=== PATIENT | male | born 1945 | race Caucasian/White ===

== ENCOUNTER → 2017-12-07 11:29 | Outpatient (CLI) | payer MEDICARE, SELFPAY | PROVIDERS: Visit Provider Nurse Practitioner Family | DX: R68.89 Other general symptoms and signs (principal) | CPT/HCPCS: 87275; 87276 ==

== ENCOUNTER → 2020-01-07 06:57 | Outpatient (CLI) | payer MEDICARE, SELFPAY ==
--- NOTE | 2020-01-07 07:08 | XR_ITS ---
PROCEDURE: XR HAND RT MIN 3V CLINICAL INDICATION: THUMB PAIN, JOINT PAIN COMPARISON: No exams were available for comparison FINDINGS: No fracture or dislocation. No lytic or blastic change. There is normal mineralization. There are minimal osteoarthritic changes involving the DIP of the 2nd and 3rd digit and the interphalangeal joint of the thumb as well as the 1st metacarpal phalangeal joint. Incidental vascular calcifications are present. There are mild osteoarthritic changes of the distal radial ulnar joint and there is some bony hypertrophy of the distal aspect of the 2nd 3rd metacarpals. Other findings:None. IMPRESSION: Mild osteoarthritic changes Dictated by: Samir Joshi MD 01/07/2020 08:21 Electronically signed by Samir Joshi MD in [facility] 01/07/2020 08:21
--- NOTE | 2020-01-07 07:08 | XR_ITS ---
PROCEDURE: XR HAND LT MIN 3V CLINICAL INDICATION: THUMB PAIN, JOINT PAIN COMPARISON: No exams were available for comparison FINDINGS: No fracture or dislocation. No lytic or blastic change. There is normal mineralization. Mild osteoarthritic changes are present involving the 1st metacarpal-carpal joint and 1st metacarpophalangeal joint. Mild bony hypertrophy of the distal aspect of the 2nd and 3rd metacarpals. Other findings:None. IMPRESSION: Mild osteoarthritic change Dictated by: Samir Joshi MD 01/07/2020 08:28 Electronically signed by Samir Joshi MD in [facility] 01/07/2020 08:28
[2020-01-07 08:07] LABS: Basophils # 0.1 K/mm3 (0-0.2); Basophils % 0.6 % (0.1-2.0); Eosinophils # 0.2 K/mm3 (0.0-0.4); Eosinophils % 2.1 % (0.1-12.0); Hematocrit 44.1 % (42.0-52.0); Hemoglobin 14.6 g/dL (14.1-18.0); Lymphocytes # 1.5 K/mm3 (0.7-4.5); Lymphocytes % 14.1 % (10-50); Mean Corpuscular HGB Conc 33.1 g/dL (31.8-35.4); Mean Corpuscular Hemoglobin 31.6 pg (27.0-31.2); Mean Corpuscular Volume 95.4 fl (80-94); Mean Platelet Volume 8.7 fl (7.4-10.4); Monocytes # 0.5 K/mm3 (0.1-1.0); Monocytes % 4.5 % (1.7-9.3); Neutrophils # 8.1 K/mm3 (1.8-7.8); Neutrophils % 78.7 % (37.0-80.0); Platelet Count 240 K/mm3 (142-424); Red Blood Count 4.62 M/mm3 (4.60-6.20); Red Cell Distribution Width 14.6 % (11.5-17.5); White Blood Count 10.3 K/mm3 (4.8-10.8)
[2020-01-07 09:43] LABS: Chloride 105 mmol/L (98-107); Sodium 139 mmol/L (136-145)
[2020-01-07 09:46] LABS: Alanine Aminotransferase 11 U/L (12-78); Albumin Level 3.8 g/dl (3.5-5.0); Albumin/Globulin Ratio 1.4 (1.1-1.8); Alkaline Phosphatase 87 U/L (38-126); Aspartate Amino Transferase 20 U/L (17-59); Bilirubin,Total 0.7 mg/dl (0.2-1.3); Blood Urea Nitrogen 22 mg/dl (9-20); Calcium 9.7 mg/dl (8.4-10.2); Carbon Dioxide 29 mmol/L (22.0-30.0); Estimated Glomerular Filt Rate 95 ml/min (>60); GFR (African American) 115 ML/MIN (>60); Globulin 2.8 g/dL (1.3-3.2); Glucose 109 mg/dl (74-100); Total Protein,Serum 6.6 g/dl (6.3-8.2)
== END ==
PROVIDERS: PCP Internal Medicine Adolescent Medicine; Visit Provider Internal Medicine Adolescent Medicine
DX: M79.644 Pain in right finger(s) (principal); M25.542 Pain in joints of left hand; M25.541 Pain in joints of right hand
CPT/HCPCS: 36415; 73130; 80053; 85025

== ENCOUNTER → 2020-05-19 10:48 | Outpatient (CLI) | payer MEDICARE, SELFPAY ==
--- NOTE | 2020-05-19 10:53 | CT_ITS ---
PROCEDURE: CT ABDOMEN PELVIS WO CON CLINICAL INDICATION: LLQ ABD PAIN Left-sided abdominal pain, left lower quadrant pain and constipation COMPARISON: No exams were available for comparison TECHNIQUE: Axial images obtained with sagittal and coronal reformats. All CT scans at the facility use one or more dose reduction, viz: automated exposure control, ma/kV adjustment per patient size (including targeted exams where dose is matched to indication, i.e. head), or iterative reconstruction technique. FINDINGS: LOWER THORAX: There is a noncalcified 5 mm nodule within the inferior aspect of the right upper lobe. Atelectatic or fibrotic changes are present in the right middle lobe. There are coronary artery calcifications. ABDOMEN & PELVIS: The liver, spleen, adrenal glands, and pancreas have an unremarkable appearance. There are multiple gallstones present. There are nonobstructing bilateral renal calculi measuring to 4 mm in the mid polar region on the right and 3 mm in the mid polar region on the left. No hydronephrosis. No evidence of appendicitis, intestinal obstruction, free air, or diverticulitis. Prostate is enlarged at 4.8 cm. There is an infrarenal abdominal aortic aneurysm which measures up to 3.8 cm transverse and 3.5 cm AP. There is no evidence of retroperitoneal hemorrhage. The aneurysm begins approximately 4 cm below the level of the renal arteries. The aneurysm extends to just above the aortic bifurcation. The proximal common iliacs measure up to 1.2 cm on both sides. No acute bony findings. IMPRESSION: 1. Cholelithiasis 2. 3.8 x 3.5 cm infrarenal abdominal aortic aneurysm 3. Nonobstructing bilateral nephrolithiasis 4. Other nonacute findings as detailed above Dictated b Samir Joshi MD 05/20/2020 10:22 Samir Joshi MD in [facility] 05/20/2020 10:22
[2020-05-19 11:40] LABS: Basophils % 0.6 % (0.1-2.0); Eosinophils % 0.6 % (0.1-12.0); Hematocrit 43.2 % (42.0-52.0); Hemoglobin 14.7 g/dL (14.1-18.0); Lymphocytes # 1.3 K/mm3 (0.7-4.5); Lymphocytes % 20.4 % (10-50); Mean Corpuscular Hemoglobin 31.2 pg (27.0-31.2); Mean Corpuscular Volume 91.9 fl (80-94); Mean Platelet Volume 9.4 fl (7.4-10.4); Monocytes # 0.4 K/mm3 (0.1-1.0); Monocytes % 5.8 % (1.7-9.3); Neutrophils # 4.5 K/mm3 (1.8-7.8); Neutrophils % 72.7 % (37.0-80.0); Platelet Count 180 K/mm3 (142-424); Red Cell Distribution Width 14.7 % (11.5-17.5); White Blood Count 6.2 K/mm3 (4.8-10.8)
[2020-05-19 12:02] LABS: Chloride 103 mmol/L (98-107); Potassium 4.2 mmoL/L (3.5-5.1); Sodium 139 mmol/L (136-145)
[2020-05-19 12:05] LABS: Alanine Aminotransferase 14 U/L (12-78); Alkaline Phosphatase 90 U/L (38-126); Anion Gap 11.2 mEq/L (5-15); Aspartate Amino Transferase 26 U/L (17-59); Bilirubin,Total 1.2 mg/dl (0.2-1.3); Blood Urea Nitrogen 16 mg/dl (9-20); Calcium 9.4 mg/dl (8.4-10.2); Carbon Dioxide 29 mmol/L (22.0-30.0); Estimated Glomerular Filt Rate 83 ml/min (>60); GFR (African American) 100 ML/MIN (>60); Glucose 92 mg/dl (74-100)
[2020-05-19 12:06] LABS: Albumin Level 3.6 g/dl (3.5-5.0); Albumin/Globulin Ratio 1.4 (1.1-1.8); Globulin 2.6 g/dL (1.3-3.2); Total Protein,Serum 6.2 g/dl (6.3-8.2)
== END ==
PROVIDERS: PCP Internal Medicine Adolescent Medicine; Visit Provider Internal Medicine Adolescent Medicine
DX: R10.32 Left lower quadrant pain (principal)
CPT/HCPCS: 36415; 74176; 80053; 85025

== ENCOUNTER → 2020-05-28 15:21 | Outpatient (CLI) | payer MEDICARE, SELFPAY ==
[2020-05-28 16:06] LABS: Basophils # 0.1 K/mm3 (0-0.2); Basophils % 0.8 % (0.1-2.0); Eosinophils # 0.1 K/mm3 (0.0-0.4); Eosinophils % 1.2 % (0.1-12.0); Hematocrit 45.8 % (42.0-52.0); Hemoglobin 15.2 g/dL (14.1-18.0); Lymphocytes % 23.7 % (10-50); Mean Corpuscular HGB Conc 33.2 g/dL (31.8-35.4); Mean Corpuscular Hemoglobin 30.9 pg (27.0-31.2); Mean Corpuscular Volume 93.2 fl (80-94); Mean Platelet Volume 9.7 fl (7.4-10.4); Monocytes # 0.4 K/mm3 (0.1-1.0); Monocytes % 4.5 % (1.7-9.3); Neutrophils % 69.8 % (37.0-80.0); Platelet Count 204 K/mm3 (142-424); Red Blood Count 4.91 M/mm3 (4.60-6.20); Red Cell Distribution Width 14.7 % (11.5-17.5); White Blood Count 8.6 K/mm3 (4.8-10.8)
[2020-05-28 16:29] LABS: Chloride 106 mmol/L (98-107); Potassium 4.2 mmoL/L (3.5-5.1); Sodium 140 mmol/L (136-145)
[2020-05-28 16:31] LABS: Alanine Aminotransferase 11 U/L (12-78); Aspartate Amino Transferase 21 U/L (17-59); Blood Urea Nitrogen 19 mg/dl (9-20); Estimated Glomerular Filt Rate 73 ml/min (>60); GFR (African American) 89 ML/MIN (>60)
[2020-05-28 16:32] LABS: Albumin Level 3.5 g/dl (3.5-5.0); Albumin/Globulin Ratio 1.3 (1.1-1.8); Alkaline Phosphatase 89 U/L (38-126); Anion Gap 10.2 mEq/L (5-15); Bilirubin,Total 0.8 mg/dl (0.2-1.3); Calcium 9.2 mg/dl (8.4-10.2); Carbon Dioxide 28 mmol/L (22.0-30.0); Creatine Kinase 90 U/L (55-170); D-Dimer 357 ng/mL (0-400); Globulin 2.7 g/dL (1.3-3.2); Glucose 79 mg/dl (74-100); Total Protein,Serum 6.2 g/dl (6.3-8.2)
[2020-05-28 16:41] LABS: CKMB Relative Index 4.6 U/L (0-4.0); Creatine Kinase MB 4.1 ng/ml (0.0-2.03)
[2020-05-28 16:54] LABS: Troponin I < 0.01 ng/ml (0.00-0.034)
--- NOTE | 2020-05-28 16:58 | NM_ITS ---
PROCEDURE: NM PUL VENT AND PERFUSE CLINICAL INDICATION: HX OF PULMONARY EMBOLISM, OTHER CHEST PAIN Shortness of air, shortness of breath, chest pain, history of pulmonary embolus COMPARISON: CR XR CHEST 2V from 05/28/2020 TECHNIQUE: Dose 35.6 mCi technetium DTPA inhaled 8.14 mCi technetium MAA IV FINDINGS: Ventilation images show clumping of the radiopharmaceutical centrally with patchy distribution of radiopharmaceutical. These findings are consistent with COPD. Perfusion images also show segmental distribution. A matching segmental defect is present in the superior segment of the right lower lobe. No mismatching defects are evident. IMPRESSION: No mismatching defects are evident that would indicate a pulmonary embolus. Overall, the findings are low probability for pulmonary embolus. COPD Dictated by: Samir Joshi MD 05/28/2020 21:08 Samir Joshi MD in [facility] 05/28/2020 21:08
--- NOTE | 2020-05-28 20:35 | XR_ITS ---
PROCEDURE: XR CHEST 2V CLINICAL HISTORY: SOB, H/O PE COMPARISON: CR CXR2V XR chest 2V from 04/13/2018 FINDINGS: The cardiomediastinal silhouette and pulmonary vascularity are within normal limits. Surgical clips are present in the left upper lobe. There is hyperinflation with attenuation of the peripheral pulmonary vessels consistent with COPD. There is a mild pectus deformity. Vague increased density is present in the right upper lobe overlying the 4th rib anteriorly. This is nonspecific and could be related to summation artifact. A patchy area of infiltrate or developing nodule is an additional consideration. Healing rib fracture is also a consideration. There are degenerative changes in the thoracic spine. No acute bony abnormalities. IMPRESSION: COPD. Vague increased density is present in the right upper lobe overlying the 4th rib anteriorly. This is nonspecific and could be related to summation artifact. A patchy area of infiltrate or developing nodule is an additional consideration. Healing rib fracture is also a consideration. Suggest follow-up to confirm stability or resolution. Dictated by: Samir Joshi MD 05/28/2020 21:36 Samir Joshi MD in [facility] 05/28/2020 21:36
== END ==
PROVIDERS: Visit Provider Internal Medicine Adolescent Medicine
DX: R07.89 Other chest pain (principal); Z86.711 Personal history of pulmonary embolism
CPT/HCPCS: 36415; 71046; 78582; 80053; 82550; 82553; 84484; 85025; 85378; A9540; A9567

== ENCOUNTER → 2020-06-17 09:39 | Outpatient (CLI) | payer MEDICARE, SELFPAY ==
--- NOTE | 2020-06-17 09:43 | CA_ITS ---
APPROVED REPORT EXAM: Comprehensive 2D, Doppler, and color-flow Echocardiogram Chemical Laboratory Assistant: Linda Rendon RVT Ht: 5 ft 8 in Wt: 175lbs BSA: 1.93 BP: 128/62 mmHg Indications: SOA,COPD,SMOKER,HTN,LUNG CAN,LOBECTOMY ON LEFT,PE ON THE RIGHT Echo Enhancing Agent Indication: Rule out Shunt Agent(s) / Amount(s) Used: Agitated Saline 10 cc Comments: BUBBLE STUDY APPEARED TO BE POSITIVE 2D Dimensions LVOT 2.31 cm (M/F) 1.5-2.5 M-Mode Dimensions RVDd 3.26 cm (0.9-2.6) LVDd 4.54 cm (3.5-5.7) LVDs 2.84 cm (3.5-5.7) IVSd 1.23 cm (0.6-1.1) PWd 0.68 cm (0.6-1.1) EF (Teich) 67.60% FS 37.40% EDV (Teich) 94.40 mL ESV (Teich) 30.60 mL LV Diastology E/A Ratio 0.54 Mitral Valve MV A Velocity 66.00 (40-130 cm/s) Left Ventricle Left atrium is mildly enlarged, left ventricle is normal size, mild concentric left ventricular hypertrophy, visually estimated ejection fraction 45%, grade 1 diastolic dysfunction seen without tissue Doppler evidence of raise left atrial pressure, there appears to be inferior and inferior basal wall moderate hypokinesis. Endocardial surfaces are poorly visualized. Right Ventricle Right atrium right ventricle mildly enlarged with normal contractility. Aortic Valve Aortic valve is minimally thickened and fibrosed, there is no aortic stenosis or aortic insufficiency. Mitral Valve Mitral valve is grossly normal, there is mild mitral regurgitation. Tricuspid Valve Tricuspid valve grossly normal, there is mild tricuspid regurgitation, tricuspid rotation jet velocity is inadequate for calculation of the right ventricular systolic pressure. Pulmonic Valve Pulmonic valve is poorly visualized. Great Vessels Aortic root is normal size. Pericardium No significant pericardial effusion noted. Conclusion 1. Technically difficult study because of the patient factors and poor acoustic windows. 2. Mild biatrial enlargement, normal left ventricular size, mild concentric left ventricular hypertrophy, visually estimated ejection fraction 45% with segmental wall motion abnormality described above, grade 1 diastolic dysfunction seen without tissue Doppler evidence of raise left atrial pressure. 3. Mildly enlarged right ventricle with normal contractility. 4. Mild mitral and tricuspid regurgitation. 5. No significant pericardial effusion noted. Electronically signed by : Jose Zhou, 06/17/2020 16:00:27
== END ==
PROVIDERS: PCP Internal Medicine Adolescent Medicine; Visit Provider Internal Medicine Adolescent Medicine
DX: R06.00 Dyspnea, unspecified (principal); R60.0 Localized edema
CPT/HCPCS: 93306

== ENCOUNTER 2020-06-22 08:57 | Day surgery (SDC) | payer MEDICARE, SELFPAY ==
[2020-06-22] VITALS (10 sets, daily range): BP systolic 128–158; BP diastolic 55–101; PULSE 63–75; RESP 16–20; O2SAT 94–99; BMI 25.7
[2020-06-22 09:45] LABS: Basophils # 0.1 K/mm3 (0-0.2); Basophils % 0.6 % (0.1-2.0); Eosinophils # 0.1 K/mm3 (0.0-0.4); Eosinophils % 0.7 % (0.1-12.0); Hematocrit 43.5 % (42.0-52.0); Hemoglobin 14.9 g/dL (14.1-18.0); Lymphocytes # 1.7 K/mm3 (0.7-4.5); Lymphocytes % 19.3 % (10-50); Mean Corpuscular HGB Conc 34.1 g/dL (31.8-35.4); Mean Corpuscular Volume 90.9 fl (80-94); Mean Platelet Volume 8.5 fl (7.4-10.4); Monocytes # 0.4 K/mm3 (0.1-1.0); Monocytes % 4.3 % (1.7-9.3); Neutrophils # 6.7 K/mm3 (1.8-7.8); Platelet Count 222 K/mm3 (142-424); Red Blood Count 4.78 M/mm3 (4.60-6.20); Red Cell Distribution Width 14.4 % (11.5-17.5)
--- NOTE | 2020-06-22 10:00 | IR_ITS ---
APPROVED REPORT Patient Location: Outpatient [facility] Director: TAE Issa RT (R) PROCEDURES Right heart catheterization Left heart catheterization Left ventriculogram Selective coronary angiogram INDICATION Abnormal stress test, Angina pectoris, Pulmonary hypertension Informed consent was obtained prior to the procedure. COMPLICATIONS None Estimated Blood Loss: less than 10 ml TECHNIQUE One percent lidocaine was used to anesthetize the right anterior aspect of the right wrist. The right radial artery was accessed via the Seldinger technique and a 6 Bangladeshi hydrophilic sheath was placed in the right radial artery. Following this one percent lidocaine was used to anesthetize the right anterior aspect of the right neck. The right internal jugular vein was accessed via the Seldinger technique and a 7 Bangladeshi sheath was placed in the right internal jugular vein. Following this an arterial cocktail was administered using 5000U heparin, 2.5 mg verapamil, 1mg Lidocaine and 800mcg nitroglycerin into the right radial sheath. A trap catheter was used to perform left heart catheterization left ventriculogram and selective coronary angiography while a [place] catheter was used to perform right heart catheterization. Saturations were obtained in the pulmonary artery and right atrium. At the end of the procedure the arterial sheath was removed good hemostasis was achieved using Traclet band. Patient was transferred to the postop holding area in stable condition for venous sheath removal. ANGIOGRAPHIC RESULTS The left main artery Normal The left anterior descending artery Is a small vessel not reaching the apex. The proximal portion has a smooth 10 to 20% stenosis The circumflex artery Normal The right coronary artery Is a massively large dominant vessel with proximal 30% stenosis mid vessel 30 and 40% stenosis. The distal segment has a 20% stenosis which extends into a large posterior lateral branch. 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 Medical management Electronically signed by : Kirill Clemons, 06/22/2020 14:33:49
[2020-06-22 10:16] LABS: Coronavirus 19 IgG Antibody Positive (Negative); Coronavirus 19 IgM Antibody Negative (Negative)
[2020-06-22 11:29] LABS: Anion Gap 11.8 mEq/L (5-15); Blood Urea Nitrogen 19 mg/dl (9-20); Calcium 9.3 mg/dl (8.4-10.2); Carbon Dioxide 30 mmol/L (22.0-30.0); Chloride 103 mmol/L (98-107); Creatinine Clearance Estimated 71 mL/min (50-200); Estimated Glomerular Filt Rate 83 ml/min (>60); GFR (African American) 100 ML/MIN (>60); Glucose 100 mg/dl (74-100); Potassium 3.8 mmoL/L (3.5-5.1); Sodium 141 mmol/L (136-145)
[2020-06-22 14:51] LABS: CATHL Arterial O2 SAT 79 % (90-100); CATHL Venous O2 SAT 82 % (75-80)
== END 2020-06-22 16:07 | disposition home or self-care (01) ==
LOC: CATHLAB 08:58
PROVIDERS: PCP Internal Medicine Adolescent Medicine; Visit Provider Internal Medicine
DX: I25.118 Atherosclerotic heart disease of native coronary artery with other forms of angina pectoris (principal); I27.20 Pulmonary hypertension, unspecified; I42.9 Cardiomyopathy, unspecified; J44.9 Chronic obstructive pulmonary disease, unspecified; R06.00 Dyspnea, unspecified; R60.9 Edema, unspecified; R93.1 Abnormal findings on diagnostic imaging of heart and coronary circulation; R94.31 Abnormal electrocardiogram [ECG] [EKG]; Z72.0 Tobacco use; Z85.118 Personal history of other malignant neoplasm of bronchus and lung; Z86.711 Personal history of pulmonary embolism; Z86.718 Personal history of other venous thrombosis and embolism; Z90.2 Acquired absence of lung [part of]; I10 Essential (primary) hypertension; Z79.01 Long term (current) use of anticoagulants; Z79.82 Long term (current) use of aspirin; Z79.52 Long term (current) use of systemic steroids
CPT/HCPCS: 80048; 82810; 85025; 86328; 93460; 99152; 99153; C1725; C1769; C1894; J1644; Q9967

== ENCOUNTER → 2020-07-30 09:08 | Outpatient (CLI) | payer MEDICARE, SELFPAY ==
[2020-07-30 11:16] LABS: Chloride 105 mmol/L (98-107); Potassium 4.4 mmoL/L (3.5-5.1); Sodium 141 mmol/L (136-145)
[2020-07-30 11:19] LABS: Anion Gap 11.4 mEq/L (5-15); Blood Urea Nitrogen 19 mg/dl (9-20); Calcium 9.5 mg/dl (8.4-10.2); Carbon Dioxide 29 mmol/L (22.0-30.0); Estimated Glomerular Filt Rate 73 ml/min (>60); GFR (African American) 89 ML/MIN (>60); Glucose 112 mg/dl (74-100)
== END ==
PROVIDERS: Urology; Visit Provider Internal Medicine Cardiovascular Disease
DX: I42.9 Cardiomyopathy, unspecified (principal); R06.00 Dyspnea, unspecified; R60.9 Edema, unspecified
CPT/HCPCS: 36415; 80048

== ENCOUNTER → 2020-12-28 13:24 | Outpatient (CLI) | payer MEDICARE, SELFPAY ==
[2020-12-28 14:52] LABS: Chloride 105 mmol/L (98-107); Potassium 4.8 mmoL/L (3.5-5.1); Sodium 139 mmol/L (136-145)
[2020-12-28 14:53] LABS: Basophils # 0.1 K/mm3 (0-0.2); Basophils % 0.6 % (0.1-2.0); Eosinophils # 0.1 K/mm3 (0.0-0.4); Eosinophils % 0.9 % (0.1-12.0); Hematocrit 42.7 % (42.0-52.0); Hemoglobin 13.6 g/dL (14.1-18.0); Lymphocytes # 2.1 K/mm3 (0.7-4.5); Mean Corpuscular HGB Conc 31.8 g/dL (31.8-35.4); Mean Corpuscular Hemoglobin 29.6 pg (27.0-31.2); Mean Corpuscular Volume 93.1 fl (80-94); Mean Platelet Volume 8.7 fl (7.4-10.4); Monocytes # 0.6 K/mm3 (0.1-1.0); Monocytes % 6.3 % (1.7-9.3); Neutrophils # 6.3 K/mm3 (1.8-7.8); Neutrophils % 69.2 % (37.0-80.0); Platelet Count 245 K/mm3 (142-424); Red Blood Count 4.59 M/mm3 (4.60-6.20); Red Cell Distribution Width 14.7 % (11.5-17.5); White Blood Count 9.1 K/mm3 (4.8-10.8)
[2020-12-28 14:55] LABS: Alanine Aminotransferase 13 U/L (12-78); Albumin/Globulin Ratio 1.4 (1.1-1.8); Alkaline Phosphatase 94 U/L (38-126); Anion Gap 11.8 mEq/L (5-15); Aspartate Amino Transferase 25 U/L (17-59); Bilirubin,Total 0.9 mg/dl (0.2-1.3); Blood Urea Nitrogen 24 mg/dl (9-20); Calcium 9.6 mg/dl (8.4-10.2); Carbon Dioxide 27 mmol/L (22.0-30.0); Estimated Glomerular Filt Rate 59 ml/min (>60); GFR (African American) 72 ML/MIN (>60); Globulin 2.8 g/dL (1.3-3.2); Glucose 113 mg/dl (74-100); Total Protein,Serum 6.8 g/dl (6.3-8.2)
== END ==
PROVIDERS: Visit Provider Internal Medicine Adolescent Medicine
DX: R19.7 Diarrhea, unspecified (principal)
CPT/HCPCS: 36415; 80053; 83735; 85025

== ENCOUNTER → 2020-12-29 10:37 | Outpatient (CLI) | payer MEDICARE, SELFPAY ==
[2020-12-29 10:41] LABS: Adenovirus F 40/41, stool Not Detected (NotDetected); Astrovirus Not Detected (NotDetected); Campylobacter Not Detected (NotDetected); Clostridium Difficile A/B, PCR Not Detected (NotDetected); Cryptosporidium Not Detected (NotDetected); Cyclospora Cayetanesis Not Detected (NotDetected); Entamoeba histolytica Not Detected (NotDetected); Enteroaggregative E coli Not Detected (NotDetected); Enteropathogenic E coli Not Detected (NotDetected); Enterotoxigenic E coli Not Detected (NotDetected); Giardia lamblia Not Detected (NotDetected); Norovirus Not Detected (NotDetected); Plesimonas Shigalloides, PCR Not Detected (NotDetected); Rotavirus A Not Detected (NotDetected); Salmonella, PCR Not Detected (NotDetected); Sapovirus Not Detected (NotDetected); Shiga-like toxin E coli Not Detected (NotDetected); Shigella Enterovasive E coli Not Detected (NotDetected); Vibrio Cholerae Not Detected (NotDetected); Vibrio, PCR Not Detected (NotDetected); Yersinia Entercolitica, PCR Not Detected (NotDetected)
== END ==
PROVIDERS: Visit Provider Internal Medicine Adolescent Medicine
DX: R19.7 Diarrhea, unspecified (principal)
CPT/HCPCS: 87506

== ENCOUNTER → 2021-01-10 07:49 | Outpatient (CLI) | payer MEDICARE, SELFPAY ==
--- NOTE | 2021-01-10 08:00 | US_ITS ---
PROCEDURE: US ABDOMEN LIMITED CLINICAL INDICATION: CALCULUS OF GB COMPARISON: No exams were available for comparison FINDINGS: PANCREAS: The visualized pancreas is unremarkable. The tail is partially obscured LIVER: No focal liver lesions demonstrated. Heterogeneous echotexture no intrahepatic biliary ductal dilatation evident. There is appropriate direction of blood flow within a non dilated portal vein RIGHT KIDNEY: Unremarkable. Normal size and echogenicity. No hydronephrosis GALLBLADDER: No gallstones, gallbladder wall thickening, pericholecystic fluid, or biliary dilatation. IMPRESSION: Unremarkable limited abdominal ultrasound as detailed above disc Dictated by: Delores Spence 01/10/2021 15:21 Delores Spence in [facility] 01/10/2021 15:21
== END ==
PROVIDERS: PCP Internal Medicine Adolescent Medicine; Visit Provider Internal Medicine Adolescent Medicine
DX: K80.20 Calculus of gallbladder without cholecystitis without obstruction (principal)
CPT/HCPCS: 76705

== ENCOUNTER → 2021-01-25 08:49 | Outpatient (CLI) | payer MEDICARE, SELFPAY ==
[2021-01-25 10:04] LABS: NT Pro Brain Natriuretic Pep. 288 pg/mL (0-125)
== END ==
PROVIDERS: Visit Provider Internal Medicine Cardiovascular Disease
DX: I27.20 Pulmonary hypertension, unspecified (principal); I42.9 Cardiomyopathy, unspecified; J44.9 Chronic obstructive pulmonary disease, unspecified; R06.00 Dyspnea, unspecified; R60.9 Edema, unspecified; R94.31 Abnormal electrocardiogram [ECG] [EKG]; Z72.0 Tobacco use; Z85.118 Personal history of other malignant neoplasm of bronchus and lung; Z86.711 Personal history of pulmonary embolism; Z86.718 Personal history of other venous thrombosis and embolism; Z90.2 Acquired absence of lung [part of]
CPT/HCPCS: 36415; 83880

== ENCOUNTER → 2021-02-03 10:46 | Outpatient (CLI) | payer MEDICARE, SELFPAY ==
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
--- NOTE | 2021-02-03 10:48 | NM_ITS ---
APPROVED REPORT Exam: Nuclear Stress Test Indication: Chest pain, SOB, Abnormal EKG, Fatigue, CAD, HTN, High cholesterol, Tobacco use, Family history Patient Location: Outpatient Stress Tech: Mar Zamora MI Tech:Laura Goel, ARRT, RT (R)(N) Ht: 5 ft 8 in Wt: 187 lbs HR: 78 bpm BP: 133/72 mmHg BSA: 1.99 m2 BMI: 28.4 History: Chest pain, SOB, Abnormal EKG, Fatigue, CAD, HTN, High cholesterol, Tobacco use, Family history Procedure: Patient received a 0.4 mg of intravenous Lexiscan, resting heart rate 78 bpm, resting blood pressure 133/72 mmHg, with Lexiscan maximum heart rate achived was 108 bpm which is Less than 85 % of the maximum predicted heart rate and blood pressure was 128/69 mmHg. With Lexiscan, patient denied any complaint of chest pain. Electrocardiogram Resting electrocardiogram shows sinus rhythm, with Lexiscan less than 1.[address] segment depression noted from the baseline EKG. The EKG portion of the Lexiscan is nondiagnostic. Cardiac Stress and Resting SPECT Images: Cardiac Stress and Resting SPECT images were obtained using technetium 99m Myoview 31.1 mCi stress and 9.95 mCi at rest. Gated SPECT analysis of segmental wall motion and calculation of the ejection fraction also done. Prone images were also obtained. Cardiac stress and resting SPECT images show uniform myocardial activity without segmental perfusion abnormality, computer derived ejection fraction is 53% with no regional wall motion abnormality, right ventricle is normal size and contractility. Conclusion: 1. The EKG portion of the Lexiscan is nondiagnostic. 2. No scintigraphic evidence of reversible ischemia seen, computer derived ejection fraction is 53% with no regional wall motion abnormality, right ventricle is normal size and contractility. 3. Normal Lexiscan Myoview study. Electronically signed by : Jose Zhou, 02/03/2021 17:06:16
--- NOTE | 2021-02-03 10:48 | CA_ITS ---
APPROVED REPORT EXAM: Comprehensive 2D, Doppler, and color-flow Echocardiogram Bin Cleaner: Sylvia Giron, RCS, RVS Ht: 5 ft 8 in Wt: 187lbs BSA: 1.99 BP: 110/70 mmHg Indications: SOA, Hx-CM(45%-06/2020)Ex-smoker, Murmur 2D Dimensions IVSd 1.07 cm LVEF (Visual) 63.00 % PWd 0.92 cm LA Volume 45.90 mL LVDd 5.35 cm LA Volume Index 23.10 mL/m2 (M/F) 16-34 LVDs 3.51 cm Aortic Root 3.86 cm Left Atrium 2.68 cm LVOT 2.04 cm (M/F) 1.5-2.5 M-Mode Dimensions RVDd 3.42 cm (0.9-2.6) LA Diam 4.12 cm (1.9-4.0) LVDd 5.47 cm (3.5-5.7) Ao Diam 4.04 cm (2.0-3.7) LVDs 3.74 cm (3.5-5.7) IVSd 1.37 cm (0.6-1.1) PWd 1.05 cm (0.6-1.1) EF (Teich) 59.10% EPSs 0.81 cm FS 31.60% EDV (Teich) 145.60 mL ESV (Teich) 59.60 mL LV Diastology E Decel Time 280.00 (160-240 msec) E/A Ratio 0.65 MED E' 8.90 (< 7 cm/sec) MED A' 12.60 cm/s E'/MED E' Ratio 5.09 (>14) LAT E' 8.90 (<10 cm/sec) LAT A' 11.70 cm/s E/LAT E' Ratio 5.09 (>14) Pulm Vein s 28.00 cm/sec Pulm Vein d 28.00 cm/sec Ar-A Duration 103.00 msec Aortic Valve LVOT Max 80.00 (70-110 cm/s) LVOT VTI 17.69 cm AO Peak GR. 3.20 mmHg Mitral Valve MV E Max Catrachito. 45.00 (40-130 cm/s) MV A Velocity 69.00 (40-130 cm/s) E/A Ratio 0.65 MV Decel. Time 280.00 (160-240 ms) MV Mean Gr. 0.80 (<2mmHg) MV PHT 82.00 ms Pulmonary Valve PV Peak Velocity 56.00 (50-150 cm/s) Tricuspid Valve TR P. Velocity 311.00 cm/s RAP Estimate 10.00 mmHg RVSP 48.80 mmHg Left Ventricle Left atrium is mildly enlarged, left ventricle is normal size, mild concentric left ventricular hypertrophy, visually estimated ejection fraction 50% with no regional wall motion abnormality, grade 1 diastolic dysfunction seen without tissue Doppler evidence of raise left atrial pressure. Right Ventricle Right atrium and right ventricle are mildly enlarged with normal contractility. Aortic Valve Aortic valve is minimally thickened and fibrosed, there is no aortic stenosis or aortic insufficiency. Mitral Valve Mitral valve is grossly normal, there is trace mitral regurgitation. Tricuspid Valve Tricuspid valve grossly normal, there is trace tricuspid regurgitation. Tricuspid regurgitation jet velocity is inadequate for calculation of the right ventricular systolic pressure. Pulmonic Valve Pulmonic valve is poorly visualized. Great Vessels Aortic root is normal size. Pericardium No significant pericardial effusion noted. Conclusion 1. Mild biatrial abdomen, normal left ventricular size, visually estimated ejection fraction 50% with no regional wall motion abnormality, grade 1 diastolic dysfunction seen without tissue Doppler evidence of raise left atrial pressure. 2. Mildly enlarged right ventricle with normal contractility. 3. Trace mitral and tricuspid regurgitation. 4. No significant pericardial effusion noted. Electronically signed by : Jose Zhou, 02/03/2021 16:58:31
--- NOTE | 2021-02-03 13:41 | HMH.ITSHM ---
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 []MULTIVITAMIN METOPROLOL LISINOPRIL BUDESONIDE ATORVASTATIN OMEPRAZOLE ASA APIXABAN ALBUTEROL
== END ==
PROVIDERS: PCP Internal Medicine Adolescent Medicine; Visit Provider Nurse Practitioner Family
DX: I25.10 Atherosclerotic heart disease of native coronary artery without angina pectoris (principal)
CPT/HCPCS: 78452; 93017; 93306; A9502; J0280; J2785

== ENCOUNTER → 2021-02-10 07:20 | Outpatient (CLI) | payer MEDICARE, SELFPAY ==
--- NOTE | 2021-02-10 07:21 | CT_ITS ---
PROCEDURE: CT CHEST WO CON CLINICAL INDICATION: H/O Lung cancer Lt lung surgery COMPARISON: CT CT ABDOMEN PELVIS WO CON from 05/19/2020 TECHNIQUE: Axial images obtained with sagittal and coronal reformats. All CT scans at the facility use one or more dose reduction, viz: automated exposure control, ma/kV adjustment per patient size (including targeted exams where dose is matched to indication, i.e. head), or iterative reconstruction technique. FINDINGS: HEART AND MEDIASTINAL STRUCTURES: No mediastinal or hilar mass or adenopathy. Coronary artery calcifications are present. LUNGS AND PLEURAL SPACES: COPD changes with centrilobular emphysema. There is a 12 by 4 mm nodule in the right upper lobe anteriorly. There may be some spiculation along the superior aspect of this lesion. The most part however, the nodule is well-circumscribed.. Lateral to this there is a 4 mm a nodular opacity. There are other smaller nodular opacities in the right upper and right middle lobe. There is an irregular nodular opacity in the left apex measuring 13 mm. There is some spiculations noted extending from this nodule. Surgical clips are present in the left upper lobe medially. No effusions are evident. No lobar consolidation or collapse BONY STRUCTURES: No acute bony abnormalities apparent. UPPER ABDOMEN: Cholelithiasis. Mild dilatation of the upper abdominal aorta at 3.3 cm. ADDITIONAL FINDINGS: No other significant abnormalities. IMPRESSION: There are scattered bilateral pulmonary nodules. The most suspicious nodule is in the left apex at 13 mm. This may be related to neoplasm or postinflammatory scarring. There are no old previous chest CTs available at this institution. Suggest comparison with old films if available. If no old studies are available then, would recommend a PET CT. Cholelithiasis. Dictated by: Samir Joshi MD 02/11/2021 11:24 Samir Joshi MD in [place] 02/11/2021 11:24
== END ==
PROVIDERS: PCP Internal Medicine Adolescent Medicine; Visit Provider Internal Medicine Pulmonary Disease
DX: R91.8 Other nonspecific abnormal finding of lung field (principal)
CPT/HCPCS: 71250; 94010

== ENCOUNTER → 2021-03-23 10:12 | Outpatient (CLI) | payer MEDICARE, SELFPAY ==
[2021-03-23 11:19] LABS: Blood Urea Nitrogen 14 mg/dl (9-20); Calcium 9.1 mg/dl (8.4-10.2); Carbon Dioxide 26 mmol/L (22.0-30.0); Chloride 104 mmol/L (98-107); Estimated Glomerular Filt Rate 65 ml/min (>60); GFR (African American) 79 ML/MIN (>60); Glucose 87 mg/dl (74-100); Sodium 136 mmol/L (136-145)
== END ==
PROVIDERS: Visit Provider Urology
DX: I20.8 Other forms of angina pectoris (principal); I27.20 Pulmonary hypertension, unspecified; I42.9 Cardiomyopathy, unspecified; J44.9 Chronic obstructive pulmonary disease, unspecified; R06.00 Dyspnea, unspecified; R60.9 Edema, unspecified; R94.31 Abnormal electrocardiogram [ECG] [EKG]; Z72.0 Tobacco use; Z85.118 Personal history of other malignant neoplasm of bronchus and lung; Z86.711 Personal history of pulmonary embolism; Z86.718 Personal history of other venous thrombosis and embolism; Z90.2 Acquired absence of lung [part of]
CPT/HCPCS: 36415; 80048

== ENCOUNTER → 2021-05-06 14:39 | Outpatient (CLI) | payer MEDICARE, SELFPAY ==
--- NOTE | 2021-05-06 14:40 | CT_ITS ---
PROCEDURE: CT CHEST [facility] CLINCAL INDICATION: 3-month follow-up COMPARISON: CT CT CHEST [facility] from 02/10/2021 TECHNIQUE: Unenhanced CT chest with axial, coronal, and sagittal multiplanar reformations. Dose modulation, automated exposure control, and/or iterative reconstruction were used for dose reduction. FINDINGS: LUNGS:Postsurgical changes of the left lung is noted. There is evidence of minor focal density in the left upper lobe measuring approximate 1.3 centimeters, demonstrates no interval change compared to prior study. Postsurgical changes with multiple surgical clips in the left suprahilar and hilar regions. There is no other focal suspicious lung lesions. Extensive centrilobular and paraseptal emphysematous changes, predominantly in the bilateral upper lobes. Peribronchial thickening and loss of tapering of the bronchials are noted bilaterally. No focal consolidation, pleural effusions or pneumothorax. Focal nodule measuring 7 millimeters noted in the right upper lobe, unchanged. Nodule in the right middle lobe measuring 5 millimeters is unchanged. Centrilobular emphysematous changes are noted bilaterally. HEART / [place] Heart:The heart is normal size without pericardial effusion. Vessels: Atherosclerotic calcifications are present in the aorta and multiple coronary arteries. MEDIASTINUM Mediastinum: Few calcified lymph nodes are noted in the mediastinum. No significant lymphadenopathy. UPPER ABDOMEN: Abdomen:Small hiatus hernia is noted. Multiple calcified gallstones. No pericholecystic fluid noted in the visualized abdomen. Otherwise the visualized upper abdominal solid organs are unremarkable within the limitations of unenhanced study. Multilevel degenerative changes of the visualized thoracic spine are noted. Visualized thyroid gland is unremarkable. IMPRESSION: Multiple bilateral lung nodules largest in the left lung apex measuring 1.3 centimeters, demonstrates no significant interval change compared to the prior study. Postsurgical changes are noted in the left lung. Multiple calcified gallstones. No evidence of cholecystitis within the limitations of the study. Other chronic findings as described above. Dictated by: Delores Spence 05/06/2021 16:01 Delores Spence in [place] 05/06/2021 16:01
== END ==
PROVIDERS: PCP Internal Medicine Adolescent Medicine; Visit Provider Internal Medicine Pulmonary Disease
DX: R91.8 Other nonspecific abnormal finding of lung field (principal)
CPT/HCPCS: 71250

== ENCOUNTER → 2021-06-15 14:44 | Outpatient (CLI) | payer MEDICARE, SELFPAY | PROVIDERS: Visit Provider Surgery | DX: Z01.812 Encounter for preprocedural laboratory examination (principal); Z20.822 Contact with and (suspected) exposure to COVID-19; D48.5 Neoplasm of uncertain behavior of skin; Q44.1 Other congenital malformations of gallbladder | CPT/HCPCS: U0003 ==

== ENCOUNTER 2021-06-17 06:22 | Day surgery (SDC) | payer MEDICARE, SELFPAY ==
[2021-06-16 08:15] VITALS: BMI 26.4
[2021-06-17 06:41] VITALS: BP 121/71; PULSE 68; RESP 18; TEMP 36.2; O2SAT 100
--- NOTE | 2021-06-17 07:28 | HMH.OPNOTE ---
Date of procedure: 06/17/21 Pre-op Diagnosis:: Skin neoplasm of uncertain behavior along mid chest (1 cm) Post-op Diagnosis:: Same Procedure performed:: Excision of skin lesion (1 cm) from mid chest Surgeon:: Clive Matos MD Anesthesia: local Estimated blood loss (mL): 5 Operative findings:: Lesion excised with 1 mm margin Operative note:: After informed consent was obtained the patient was taken to the procedure room. He was maintained in the supine position. His mid chest was prepped and draped in a sterile fashion. After infiltration with local anesthetic an elliptical incision was made around the lesion with a 1 mm margin. The deep subcutaneous tissue was sharply dissected. The lesion was excised in toto and passed off for pathologic evaluation. Electrocautery was utilized to achieve hemostasis. Skin was reapproximated with interrupted 4-0 nylon. Dressings were applied and patient was discharged in stable condition. Condition: stable Disposition: no change Specimens:: Skin lesion mid chest Complications:: No immediate
[2021-06-17 11:37] VITALS: BP 123/71; PULSE 59; RESP 18; TEMP 36.6; O2SAT 99
== END 2021-06-17 07:35 | disposition home or self-care (01) ==
LOC: OUTP 06:26
PROVIDERS: PCP Internal Medicine Adolescent Medicine; Visit Provider Surgery
DX: C44.92 Squamous cell carcinoma of skin, unspecified; Z85.9 Personal history of malignant neoplasm, unspecified; Z79.82 Long term (current) use of aspirin; Z79.899 Other long term (current) drug therapy; J44.9 Chronic obstructive pulmonary disease, unspecified; I10 Essential (primary) hypertension; Z86.711 Personal history of pulmonary embolism; Z86.718 Personal history of other venous thrombosis and embolism; Z90.2 Acquired absence of lung [part of]; Z72.0 Tobacco use
CPT/HCPCS: 11601; 88305

== ENCOUNTER → 2021-08-25 15:59 | Outpatient (CLI) | payer MEDICARE, SELFPAY ==
--- NOTE | 2021-08-25 16:09 | XR_ITS ---
PROCEDURE: XR CHEST 2V CLINICAL HISTORY: COPD EXACERBATION, HOARSENESS COMPARISON: CR CXR2V XR chest 2V from 04/13/2018 CR XR CHEST 2V from 05/28/[address] CHEST WO CON from 05/06/2021 FINDINGS: The cardiomediastinal silhouette and pulmonary vascularity are within normal limits. The lungs are clear without infiltrates, suspicious nodules, or pleural effusions. No acute bony abnormalities. Surgical clips left suprahilar region and left upper lobe. IMPRESSION: No change with no acute finding Dictated by: Samir Joshi MD 08/25/2021 16:43 Samir Joshi MD in [facility] 08/25/2021 16:43
[2021-08-25 16:14] LABS: Basophils # 0.1 K/mm3 (0-0.2); Basophils % 1.2 % (0.1-2.0); Eosinophils # 0.1 K/mm3 (0.0-0.4); Eosinophils % 0.9 % (0.1-12.0); Hematocrit 37.5 % (42.0-52.0); Hemoglobin 11.6 g/dL (14.1-18.0); Lymphocytes # 2.5 K/mm3 (0.7-4.5); Mean Corpuscular HGB Conc 31.1 g/dL (31.8-35.4); Mean Corpuscular Hemoglobin 25.1 pg (27.0-31.2); Mean Corpuscular Volume 80.6 fl (80-94); Mean Platelet Volume 9.1 fl (7.4-10.4); Monocytes # 0.6 K/mm3 (0.1-1.0); Monocytes % 6.6 % (1.7-9.3); Neutrophils # 5.4 K/mm3 (1.8-7.8); Neutrophils % 62.3 % (37.0-80.0); Platelet Count 304 K/mm3 (142-424); Red Blood Count 4.65 M/mm3 (4.60-6.20); Red Cell Distribution Width 16.5 % (11.5-17.5); White Blood Count 8.7 K/mm3 (4.8-10.8)
[2021-08-25 18:12] LABS: Alanine Aminotransferase 12 U/L (12-78); Albumin Level 3.8 g/dl (3.5-5.0); Albumin/Globulin Ratio 1.5 (1.1-1.8); Alkaline Phosphatase 88 U/L (38-126); Anion Gap 12.7 mEq/L (5-15); Aspartate Amino Transferase 24 U/L (17-59); Bilirubin,Total 0.6 mg/dl (0.2-1.3); Blood Urea Nitrogen 9 mg/dl (9-20); Carbon Dioxide 28 mmol/L (22.0-30.0); Chloride 101 mmol/L (98-107); Estimated Glomerular Filt Rate 73 ml/min (>60); GFR (African American) 88 ML/MIN (>60); Globulin 2.6 g/dL (1.3-3.2); Glucose 74 mg/dl (74-100); Potassium 4.7 mmoL/L (3.5-5.1); Sodium 137 mmol/L (136-145); Total Protein,Serum 6.4 g/dl (6.3-8.2)
== END ==
PROVIDERS: Visit Provider Internal Medicine Adolescent Medicine
DX: J44.1 Chronic obstructive pulmonary disease with (acute) exacerbation (principal); R49.0 Dysphonia
CPT/HCPCS: 36415; 71046; 80053; 85025

== ENCOUNTER 2021-10-02 11:01 | Emergency (ER) | payer MEDICARE, SELFPAY ==
[2021-10-02 11:02] VITALS: BMI 28.7
--- NOTE | 2021-10-02 13:45 | HMH.EDUTC ---
[facility] Disposition Clinical Impression: Dysphagia Qualifiers: Dysphagia type: unspecified Qualified Code(s): R13.10 - Dysphagia, unspecified Disposition: Home, Self-Care Condition on Discharge: Good Instructions: DI for Esophageal Dysphagia Additional Instructions: By his medication list, the only medication that he is on that should not be crushed is the metoprolol succinate. This is the extended release version of this medication. So, I sent in a prescription for metoprolol tartrate, which can be crushed. But, he will need to take this version twice per day (morning and evening) instead of once per day. Please be careful and don't get them mixed up and take both or crush the wrong one. You could put the crushed medications in apple sauce, yogurt or even just water to make them easier to swallow. I will leave a message for your primary care physician to see if he will call Dr. Faust to try to do get him seen there sooner than November 02. Please call his office yourself tomorrow to make sure they are aware of this situation also. You can crush the doxycycline that was prescribed on Sunday also, so please continue taking that one too. I encourage you to get some Ensure or a similar product to try to keep your nutrition level up as much as possible until this gets resolved. Follow up with your primary care provider. GO TO THE ER FOR ANY WORSENING SYMPTOMS OR CONCERNS I wrote a prescription for a pill handstitching machine armhole feller to try to get your insurance to pay for it. They are not expensive. Please get one. It will make crushing your medications much easier. Prescriptions: Metoprolol Tartrate [Lopressor 25mg tablet] 12.5 mg PO BID 30 Days #60 tab Transmission Status: Sent to [facility] Referrals: Sravan Mar MD [Primary Care Provider] - Time of Disposition: 15:24 Medical Decision Making - Medical Records Medical records reviewed: No: I reviewed the patient's medical records. - Randy Inquiry Pt receiving controlled substance: No Vital Signs: 10/02/21 13:46 10/02/21 15:31 Temperature 97.8 F 97.8 F Temperature Source Oral Pulse Rate 72 Pulse Rate [Left] 72 Respiratory Rate 18 18 Blood Pressure 135/76 Blood Pressure [Right Arm] 135/76 Blood Pressure Mean [Right Arm] 95 02 Sat by Pulse Oximetry 100 [facility] HPI - General Stated complaint: unable to swallow, loss of voice Time Seen by Provider: 10/02/21 13:45 Mode of Arrival: Ambulatory Source of Information: Patient Limitations: No Limitations Description of Symptoms (Recalled from Triage Doc. by RN): TO ED PER [facility] CAR WITH C/O LARYNGITIS SYMPTOMS STARTING IN JUL. PT STATES HE HAS BEEN SEEN SEVERAL TIMES BY DR MAR AND BY DR BATISTA (ENT). SEEN LESTER YESTERDAY AND STARTED ON DOXY. PT STATES YESTERDAY HE STARTED HAVING DIFFICULTY SWALLOWING FOOD, PILLS. STATES HE IS ABLE TO TAKE FLUIDS WITH NO DIFFICULTY. PT DENEIS ANY SOB. PT CONTROLLING SECRETIONS. - History of Present Illness Provider Complaint: He states that he has been having increasing difficulty with swallowing any thing but liquids. This has been an ongoing issue since this past July. He has saw his pcp multiple times for this. He has also saw ENT multiple times for this. He last saw ENT (Dr. Batista) on Sunday (2 days ago). He states that around 2 weeks ago, ENT did a scope through his nose and told him that they could not see anything wrong as far as they could look down his throat, but they could go past his throat area. He was then referred to Dr. Faust, but his appt there is not until . He was started on doxycycline on Sunday by ENT. He is not sure why this medication was started, but he has been unable to swallow it anyway. - Related Data Home Medications Medication Instructions Recorded Confirmed Aspirin [Aspirin 81mg EC Tab] 81 mg PO DAILY 04/13/18 09/06/21 Omeprazole Magnesium [Prilosec Otc 20 mg PO DAILY 04/13/18 09/06/21 20mg Tab] lisinopriL
[2021-10-02 13:46] VITALS: BP 135/76; PULSE 72; RESP 18; TEMP 36.6; O2SAT 100; BMI 28.7
--- NOTE | 2021-10-02 13:55 | XR_ITS ---
PROCEDURE INFORMATION: Exam: XR Soft Tissue Neck Exam date and time: 10/02/2021 1:55 PM Age: 76 years old Clinical indication: Painful swallowing; Patient HX: Difficulty swallowing, feels like food is getting caught in his throat. TECHNIQUE: Imaging protocol: XR of the soft tissues of the neck. COMPARISON: CR XR CHEST 2V 08/25/2021 4:11 PM FINDINGS: Airway: Normal. No abnormal narrowing. Soft tissues: Normal. Normal epiglottis. Bones/joints: Intervertebral disc space narrowing C5 through C7 may represent degenerative disc disease.. Anterior osteophyte formation C5 through C7. Posterior osteophyte formation C5 through C7 IMPRESSION: Intervertebral disc space narrowing C5 through C7 may represent degenerative disc disease.. No airway narrowing Consider CT soft tissue neck with contrast to better evaluate difficulty swallowing
[2021-10-02 15:31] VITALS: BP 135/76; PULSE 72; RESP 18; TEMP 36.6
== END 2021-10-02 15:31 | disposition home or self-care (01) ==
LOC: ER 11:19 → UTC 11:28
PROVIDERS: Emergency Provider Nurse Practitioner Family; PCP Internal Medicine Adolescent Medicine
DX: R13.10 Dysphagia, unspecified (principal); I10 Essential (primary) hypertension; F17.210 Nicotine dependence, cigarettes, uncomplicated; J44.9 Chronic obstructive pulmonary disease, unspecified; Z79.899 Other long term (current) drug therapy
CPT/HCPCS: G0463; 70360; 99202

== ENCOUNTER → 2021-10-03 13:23 | Outpatient (CLI) | payer MEDICARE, SELFPAY ==
--- NOTE | 2021-10-03 13:28 | FL_ITS ---
PROCEDURE: FL BARIUM SWALLOW CLINICAL INDICATION: difficulty swallowing COMPARISON: No exams were available for comparison TECHNIQUE: In the upright position the patient was observed to swallow barium in both the AP and lateral view. The cervical esophagus was examined under fluoroscopy with images obtained. The patient was then placed prone in the right anterior oblique position and was observed to swallow barium with Valsalva technique . FLUOROSCOPY TIME: 1.14 minutes FINDINGS: Study is somewhat limited due to patient's inability to take large swallows and patient's severe shortness of breath. No esophageal mass or retained foreign body. No polypoid filling defects or annular constricting lesions. No hiatal hernia. Patient was unable to lie flat for the exam. IMPRESSION: Unremarkable limited barium swallow Dictated by: Samir Joshi MD 10/03/2021 15:11 Samir Joshi MD in [place] 10/03/2021 15:11
== END ==
PROVIDERS: PCP Internal Medicine Adolescent Medicine; Visit Provider Surgery
DX: R13.10 Dysphagia, unspecified (principal); U07.1 COVID-19
CPT/HCPCS: 74220; C9803; U0003; U0005

== ENCOUNTER 2021-10-04 10:00 | Day surgery (SDC) | payer MEDICARE, SELFPAY ==
[2021-10-04 10:17] VITALS: BP 127/72; PULSE 86; RESP 18; TEMP 36.6; O2SAT 100; BMI 28.8
--- NOTE | 2021-10-04 10:47 | HMH.ANESCL ---
[facility] Anesthesia Checklist - Patient Identification Patient Identification: Arm Band, Verbal (Name & ) - Structural Data Admitted From: Home Planned Operative Procedure/s: EGD Consent for Planned Operative Procedure(s) Verified: Yes Verified Documents: Surgical Consent - NPO Status Verified Time NPO: 00:00 - Cardiovascular Assessment Heart Sounds: S1 & S2 - Airway Assessment C-Spine Mobility Assessed: Yes TMJ Mobility Assessed: Yes Dentition: Good Dentition - Neurological Assessment Level of Consciousness: Awake, Alert, Appropriate - Anesthesia Plan Anesthesia Risk discussed: Yes ASA Class: III Anesthesia Type: General [facility] History I have reviewed the patient's past medical history: Yes Medical History: Reports:: Cancer (lung), Chronic Obstructive Pulmonary Disease (COPD), Hypertension, Pulmonary Embolism Denies:: Diabetes Mellitus Type 1, Diabetes Mellitus Type 2, Internal Pacemaker, MRSA, Seizures *Have you ever received a pneumonia vaccine?: No *Have you received a flu vaccine this season?: Yes Anesthesia experience/problems:: none Laterality Cases: Left: Other Other Surgeries: Yes: Cancer Surgery, Cardiac Catheterization, Colonoscopy. No: Pacemaker Amputation: No Fractures: No - *Social History Last grade of school completed: High school graduate Smoking Status: Current every day smoker Tobacco Type: cigarettes # Packs/Day (cigarettes): 1 Alcohol Intake: never Substance Use Type: denies use *Occupational Status:: retired Housing: house Household Members: spouse *Travel in the last 8 weeks: None Family Hx:: Cancer
[2021-10-04 11:20] VITALS: BP 99/56; PULSE 75; RESP 16; TEMP 36.1; O2SAT 93
--- NOTE | 2021-10-04 11:22 | P.PCN_ITS ---
- Procedure: Date: 10/04/21 Patient Date of :: 1945 Procedure Performed:: Esophagogastroduodenoscopy with biopsies Indications:: Patient is a pleasant 76-year-old male from [place] whom I had previously seen for possible gallbladder issues. He does have a history of lung cancer and had undergone lobectomy. He had developed DVT with pulmonary embolism and is on Eliquis. Of note, the patient had a colonoscopy on 05/12/[address] Ney Gutiérrez and had numerous polyps removed measuring up to 1 cm most of which were tubular adenomas but he did have several sessile serrated adenomas in the descending and sigmoid colon. He is now referred from Dr. Sravan Brooks's office urgently for evaluation for possible upper endoscopy. Patient has had some hoarseness and has intermittently had loss of his voice for about the past 2 months. He has seen ENT. He had undergone nasopharyngoscopy this past Sunday on 10/01/2021. Patient states that over the past 3 days he has been unable to tolerate any solid nutrition. He can keep some liquids down. He does have a lot of acid reflux and some belching. He was seen in the urgent treatment center yesterday. He did undergo plain neck x-ray of the soft tissues which reveals intervertebral disc space narrowing C5-C7 with no airway narrowing. I saw him in the office yesterday and had him undergo a barium swallow. This was unremarkable. Plan was made for upper endoscopy the following day. Of note, p reoperative evaluation revealed positivity for Covid. Performing Provider:: Volodymyr Faust MD Referring Provider:: Sravan Brooks MD Sedation:: MAC sedation Procedure:: Consent was obtained. Patient was taken to endoscopy procedure room. He was positioned in lateral decubitus position. Adequate intravenous sedation was achieved with anesthesia titration of propofol. Olympus endoscope was inserted via the oropharynx. Pharynx and proximal esophagus were carefully inspected. Although using flexible endoscopy this is a suboptimal instrument for this careful inspection was carried out. There were no obvious noted lesions. Endoscope was advanced in the esophagus which appeared unremarkable. Gastroesophageal junction was encountered at approximately 40 cm from the incisors. Stomach was cannulated. There is some mild gastropathy. Gastric antral mucosal biopsy was obtained for CLOtest for H. pylori. Pylorus was traversed. Endoscope was advanced to the duodenal sweep which appeared unremarkable. Endoscope was withdrawn into the distal esophagus and gastroesophageal junction biopsy was obtained. Stomach was desufflated and the endoscope was withdrawn. Findings:: Mild gastropathy Gastroesophageal junction at 40 cm from the incisors Recommendations:: No source on upper endoscopy to contribute to his solid food dysphagia. Complications:: None immediately apparent Estimated blood obtained (mL): 2
[2021-10-04 11:30] VITALS: BP 104/53; PULSE 75; RESP 16; O2SAT 93
[2021-10-04 11:40] VITALS: BP 114/59; PULSE 69; RESP 16; O2SAT 97
[2021-10-04 11:49] VITALS: BP 105/59; PULSE 70; RESP 16; O2SAT 99
== END 2021-10-04 11:49 | disposition home or self-care (01) ==
LOC: OUTP 10:01
PROVIDERS: PCP Internal Medicine Adolescent Medicine; Visit Provider Surgery
PROC: 0DJ08ZZ Inspection of Upper Intestinal Tract, Via Natural or Artificial Opening Endoscopic (ICD-10-PCS; CPT 43235; principal; 2021-10-04 10:45)
DX: K31.9 Disease of stomach and duodenum, unspecified (principal); J44.9 Chronic obstructive pulmonary disease, unspecified; I10 Essential (primary) hypertension; E78.5 Hyperlipidemia, unspecified; I25.10 Atherosclerotic heart disease of native coronary artery without angina pectoris; Z85.118 Personal history of other malignant neoplasm of bronchus and lung; Z86.718 Personal history of other venous thrombosis and embolism; Z79.01 Long term (current) use of anticoagulants; Z86.711 Personal history of pulmonary embolism; Z72.0 Tobacco use; Z80.9 Family history of malignant neoplasm, unspecified
CPT/HCPCS: 43239; 87339; 88305

== ENCOUNTER → 2021-10-17 12:54 | Outpatient (CLI) | payer MEDICARE, SELFPAY ==
--- NOTE | 2021-10-17 12:54 | CT_ITS ---
FINAL REPORT TECHNIQUE: Axial CT images were performed through the chest without contrast. Coronal reformatted images were submitted. This study was performed with techniques to keep radiation doses as low as reasonably achievable (ALARA). Individualized dose reduction techniques using automated exposure control or adjustment of mA and/or kV according to the patient's size were employed. CLINICAL HISTORY: 6 month follow up from lung cancer// nodules in lungs previous // patient is allergic to contrast// done without contrast COMPARISON: May 06, 2021 and February 10, 2020 FINDINGS: There is no axillary adenopathy. There is no hilar or mediastinal adenopathy. The heart size is normal. There is moderate calcification in the aortic arch. There is no pericardial or pleural effusion. There are moderately advanced changes of centrilobular emphysema. There is scarring in the periphery of both lungs. Limited images of the upper abdomen demonstrates multiple gallstones in a partially contracted gallbladder. There is a spiculated lesion in the anterior left upper lobe measuring 10 x 5 mm seen on image 42 of series 3. This finding appears similar to the previous exam on May 06, 2021. There is a density inferior to this level measuring 11 x 6 mm seen on image 46 series 3. In comparison to February 10, 2020 ,both of these lesions appear to have progressed. There is a small spiculated density measuring about 7 mm on images 86-90 in the periphery of the right upper lobe. This finding is similar to or less evident than seen previously. IMPRESSION: 2 adjacent densities in the anterior left upper lobe which have increased as compared to January 2020. Findings are concerning for neoplasia. PET scan recommended for further evaluation. Reviewed, Interpreted and Dictated by Roman Hammond MD Transcribed by Sara Yang Authenticated by Roman Hammond MD on 10/18/2021 12:13:30 PM [facility]
== END ==
PROVIDERS: PCP Internal Medicine Adolescent Medicine; Visit Provider Internal Medicine Pulmonary Disease
DX: R91.8 Other nonspecific abnormal finding of lung field (principal)
CPT/HCPCS: 71250

== ENCOUNTER → 2021-10-18 19:03 | Outpatient (CLI) | payer MEDICARE, SELFPAY ==
[2021-10-18 19:23] LABS: Basophils # 0.1 K/mm3 (0-0.2); Basophils % 0.8 % (0.1-2.0); Eosinophils # 0.1 K/mm3 (0.0-0.4); Eosinophils % 0.8 % (0.1-12.0); Hematocrit 36.4 % (42.0-52.0); Hemoglobin 11.5 g/dL (14.1-18.0); Lymphocytes # 1.4 K/mm3 (0.7-4.5); Lymphocytes % 20.5 % (10-50); Mean Corpuscular HGB Conc 31.5 g/dL (31.8-35.4); Mean Corpuscular Hemoglobin 25.5 pg (27.0-31.2); Mean Corpuscular Volume 80.9 fl (80-94); Mean Platelet Volume 9.8 fl (7.4-10.4); Monocytes # 0.4 K/mm3 (0.1-1.0); Monocytes % 6.6 % (1.7-9.3); Neutrophils # 4.8 K/mm3 (1.8-7.8); Neutrophils % 71.4 % (37.0-80.0); Platelet Count 329 K/mm3 (142-424); Red Cell Distribution Width 17.6 % (11.5-17.5); White Blood Count 6.7 K/mm3 (4.8-10.8)
[2021-10-18 19:28] LABS: Alanine Aminotransferase 13 U/L (12-78); Albumin Level 3.7 g/dl (3.5-5.0); Albumin/Globulin Ratio 1.5 (1.1-1.8); Alkaline Phosphatase 95 U/L (38-126); Anion Gap 8.1 mEq/L (5-15); Aspartate Amino Transferase 25 U/L (17-59); Bilirubin,Total 0.5 mg/dl (0.2-1.3); Blood Urea Nitrogen 7 mg/dl (9-20); Carbon Dioxide 30 mmol/L (22.0-30.0); Chloride 99 mmol/L (98-107); Estimated Glomerular Filt Rate 82 ml/min (>60); GFR (African American) 100 ML/MIN (>60); Globulin 2.4 g/dL (1.3-3.2); Glucose 94 mg/dl (74-100); Potassium 4.1 mmoL/L (3.5-5.1); Sodium 133 mmol/L (136-145); Total Protein,Serum 6.1 g/dl (6.3-8.2)
[2021-10-18 20:00] LABS: Thyroid Stimulating Hormone 2.16 uIU/mL (0.465-4.68)
[2021-10-18 20:17] LABS: Vitamin B12 170 pg/mL (239-931)
[2021-10-18 20:59] LABS: Hemoglobin A1C 5.7 % (4.0-6.0)
[2021-10-18 21:03] LABS: 25-OH Vitamin D, Total 30.2 ng/mL (30-100)
[2021-10-20 12:10] LABS: Sjogren's Anti-SS-A <0.2 AI (0.0-0.9); Sjogren's Anti-SS-B <0.2 AI (0.0-0.9)
[2021-10-20 20:12] LABS: Antinuclear Antibodies, IFA Negative (.)
== END ==
PROVIDERS: Visit Provider Internal Medicine Adolescent Medicine
DX: K11.7 Disturbances of salivary secretion (principal); G62.9 Polyneuropathy, unspecified; Z79.899 Other long term (current) drug therapy
CPT/HCPCS: 80053; 82306; 82607; 83036; 84443; 85025; 86038; 86235

== ENCOUNTER 2021-10-19 18:43 | Emergency (ER) | payer MEDICARE, SELFPAY ==
[2021-10-19 18:45] VITALS: BP 148/83; PULSE 87; RESP 20; TEMP 36.6; O2SAT 95; BMI 26.4
--- NOTE | 2021-10-19 18:56 | XR_ITS ---
PROCEDURE INFORMATION: Exam: XR Chest Exam date and time: 10/19/2021 6:56 PM Age: 76 years old Clinical indication: Cough TECHNIQUE: Imaging protocol: XR of the chest. Views: 1 view. Portable AP exam 7:09 p.m. 2 images received. COMPARISON: CT CHEST WO CON 10/17/2021 1:09 PM FINDINGS: Lungs: Minimal subsegmental atelectasis or scarring at the right lung base. No consolidation. Borderline hyperinflation of the right lung. Slightly elevated left diaphragm, unchanged compared with the prior study. Some tiny bilateral pulmonary nodules and chronic granulomatous changes in the lungs are not as clearly seen on this portable chest x-ray, better evaluated on prior CT. Pleural spaces: Unremarkable. No significant pleural effusion. No pneumothorax. Heart/Mediastinum: The cardiac silhouette is normal. Mediastinal surgical clips. Vasculature: Calcified plaque in the aortic arch. Bones/joints: There are spinal degenerative changes, with multilevel disc narrrowing and spondylosis. IMPRESSION: 1. No acute findings or significant change compared with 10/17/2021. 2. Right pulmonary hyperinflation and emphysematous changes. Chronic mild elevation of the left diaphragm. Subsegmental atelectasis or scarring in the lower right lung. No focal consolidation.
--- NOTE | 2021-10-19 18:59 | ECG_ITS ---
APPROVED REPORT Exam: Resting ECG HR:76 bpm ECG Measurements Heart Rate 76 AXES NC 140 P 31 QRSd 102 QRS 16 QT 388 T 53 QTc 436 Conclusion Normal sinus rhythm Low voltage QRS Borderline ECG Electronically signed by : Sravan Brooks MD 10/21/2021 14:29:23
[2021-10-19 19:04] LABS: Basophils # 0.1 K/mm3 (0-0.2); Basophils % 0.8 % (0.1-2.0); Eosinophils # 0.1 K/mm3 (0.0-0.4); Hemoglobin 11.9 g/dL (14.1-18.0); Lymphocytes % 24.6 % (10-50); Mean Corpuscular HGB Conc 32.1 g/dL (31.8-35.4); Mean Corpuscular Hemoglobin 25.4 pg (27.0-31.2); Mean Platelet Volume 9.2 fl (7.4-10.4); Monocytes # 0.5 K/mm3 (0.1-1.0); Monocytes % 5.7 % (1.7-9.3); Neutrophils # 5.4 K/mm3 (1.8-7.8); Neutrophils % 67.8 % (37.0-80.0); Platelet Count 326 K/mm3 (142-424); Red Blood Count 4.68 M/mm3 (4.60-6.20); Red Cell Distribution Width 17.5 % (11.5-17.5)
[2021-10-19 19:06] LABS: Chloride 100 mmol/L (98-107); Sodium 136 mmol/L (136-145)
[2021-10-19 19:09] LABS: Alanine Aminotransferase 17 U/L (12-78); Albumin Level 4.1 g/dl (3.5-5.0); Albumin/Globulin Ratio 1.4 (1.1-1.8); Alkaline Phosphatase 79 U/L (38-126); Anion Gap 15.4 mEq/L (5-15); Aspartate Amino Transferase 37 U/L (17-59); Bilirubin,Total 0.7 mg/dl (0.2-1.3); Blood Urea Nitrogen 6 mg/dl (9-20); Carbon Dioxide 25 mmol/L (22.0-30.0); Creatinine Clearance Estimated 78 mL/min (50-200); Estimated Glomerular Filt Rate 94 ml/min (>60); GFR (African American) 114 ML/MIN (>60); Globulin 2.9 g/dL (1.3-3.2); Potassium 4.4 mmoL/L (3.5-5.1)
--- NOTE | 2021-10-19 19:12 | HMH.EDGENADL ---
ED Disposition Clinical Impression: Acute exacerbation of chronic obstructive airways disease Disposition: Home, Self-Care Condition on Discharge: Good Instructions: DI for Chronic Obstructive Pulmonary Disease Prescriptions: Doxycycline Monohydrate [Doxycycline [place] 100mg Tab] 100 mg PO Q12 #20 tab Transmission Status: Pending to [facility] Referrals: Sravan Brooks MD [Primary Care Provider] - - Critical Care Critical Care Time: No Attestation: On 10/19/21, the high probability of a clinically significant, sudden or life threatening deterioration of the following system(s) required my full and direct attention, intervention and personal management. The time I documented below is in addition to time spent performing reported procedures but includes the following listed in this critical care notation. Medical Decision Making - Medical Records Medical records reviewed: Yes: I reviewed the patient's medical records. - Randy Inquiry Pt receiving controlled substance: No Vital Signs: 10/19/21 18:45 10/19/21 19:40 Temperature 97.9 F Temperature Source Oral Pulse Rate 80 Pulse Rate [Right Radial] 87 Respiratory Rate 20 Blood Pressure [Right Arm] 148/83 H Blood Pressure Mean [Right Arm] 104 Blood Pressure Source [Right Arm] Automatic Cuff Blood Pressure Position [Right Arm] Sitting 02 Sat by Pulse Oximetry 95 Oxygen Delivery Method Room Air - Lab Data Lab Results 10/19/21 18:30: WBC 8.0, RBC 4.68, Hgb 11.9 L, Hct 37.0 L, MCV 79.0 L, MCH 25.4 L, MCHC 32.1, RDW 17.5, Plt Count 326, MPV 9.2, Neut % (Auto) 67.8, Lymph % (Auto) 24.6, [place] % (Auto) 5.7, Eos % (Auto) 1.0, Baso % (Auto) 0.8, Neut # (Auto) 5.4, Lymph # (Auto) 2.0, [place] # (Auto) 0.5, Eos # (Auto) 0.1, Baso # (Auto) 0.1 10/19/21 18:30: Sodium 136, Potassium 4.4, Chloride 100, Carbon Dioxide 25, Anion Gap 15.4 H, BUN 6 L, Creatinine 0.80, Estimated Creat Clear 78, Estimated GFR 94, Est GFR ( Amer) 114, Glucose 108 H, Calcium 8.8, Total Bilirubin 0.7, AST 37 D, ALT 17 D, Alkaline Phosphatase 79, Total Protein 7.0, Albumin 4.1 D, Globulin 2.9, Albumin/Globulin Ratio 1.4 Result diagrams: 10/19/21 18:30 10/19/21 18:30 Orders (Tests/Meds): ED MEDICATIONS Generic Name Dose Route Start Last Admin Trade Name Freq PRN Reason Stop Dose Admin Sodium Chloride 10 ml 10/19/21 18:57 Sodium Chloride 0.9% 10ml Vial IV 11/18/21 18:56 NEEDED PRN to Dilute Lorazepam inj Discontinued Medications Generic Name Dose Route Start Last Admin Trade Name Freq PRN Reason Stop Dose Admin Albuterol/Ipratropium 3 ml 10/19/21 18:57 10/19/21 19:40 Ipratropium/Albuterol 3 Ml Neb IH 10/19/21 18:58 3 ml ONCE ONE Administration Dexamethasone Sodium Phosphate 10 mg 10/19/21 18:56 10/19/21 19:00 Dexamethasone 4mg/Ml 5ml Mdv IV 10/19/21 18:57 10 mg ONCE ONE Administration Lorazepam 1 mg 10/19/21 18:57 10/19/21 19:01 Lorazepam 2mg/Ml Vial IV 10/19/21 18:58 1 mg ONCE ONE Administration ORDERS Category Date Time Status XR chest portable Stat Exams 10/19/21 18:56 Taken - Radiology Data #1 Image(s): Chest Image Reviewed: Yes I reviewed the patient's radiology results, Yes I reviewed the patient's radiology image Chronic changes with history of lobectomy - ECG Data Tracing #1 I reviewed this ECG and interpreted as documented below: No ventricular rate is 76 bpm, TN interval 140 ms, normal QTC. Sinus rhythm with nonspecific changes. ECG initial impression date: 10/19/21 ECG initial impression time: 18:59 - Reevaluation(s) Time: 19:44 Reevaluation #1: On reevaluation, patient is feeling much better. He is not having desaturations. Wheezing is improved. He is feeling much more calm. 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 Patient be discharged with short course of antibiotics. Needs to follow-up with PCP. Given strict return precautions. Verbali
[2021-10-19 19:13] LABS: Calcium 8.8 mg/dl (8.4-10.2); Glucose 108 mg/dl (74-100)
[2021-10-19 19:40] VITALS: PULSE 80; PULSE 85
[2021-10-19 20:10] VITALS: BP 158/86; PULSE 86; RESP 16; TEMP 37.1; O2SAT 94
== END 2021-10-19 20:13 | disposition home or self-care (01) ==
PROVIDERS: Emergency Provider Emergency Medicine; PCP Internal Medicine Adolescent Medicine
DX: J44.1 Chronic obstructive pulmonary disease with (acute) exacerbation (principal); I10 Essential (primary) hypertension; F17.210 Nicotine dependence, cigarettes, uncomplicated
CPT/HCPCS: 71045; 80053; 85025; 93005; 99283

== ENCOUNTER 2021-10-22 13:21 | Emergency (ER) | payer MEDICARE, SELFPAY ==
[2021-10-22 13:23] VITALS: BP 141/70; PULSE 95; RESP 18; TEMP 36.5; O2SAT 99; BMI 28.5
--- NOTE | 2021-10-22 13:35 | HMH.EDGENADL ---
ED Disposition Clinical Impression: Hemorrhoid Qualifiers: Hemorrhoid type: unspecified Qualified Code(s): K64.9 - Unspecified hemorrhoids Disposition: Home, Self-Care Condition on Discharge: Fair Instructions: DI for Hemorrhoids, Increased Dietary Fiber May Improve Constipation Conditions With Pelvic Neo, DI for Constipation Additional Instructions: You have been evaluated for rectal mass, swelling. Diagnosed with hemorrhoids. Please eat a high-fiber diet and take MiraLAX to avoid constipation. Do sitz bath's twice daily. Use hemorrhoid cream. Follow-up with your primary care doctor. Follow-up with surgery, Dr. Faust. Return to the emergency department for new or worsening symptoms, pain, fevers, other concerns. Prescriptions: Phenyleph/Shark Emilia.oil/Mo/Pet [Hemorrhoidal Ointment] 28 gm RC BID PRN #280 gm PRN Reason: Moderate Pain Transmission Status: Received by [facility] polyethylene glycoL 3350 [Miralax 17gm Packet] 17 gm PO DAILYP PRN #30 packet PRN Reason: Constipation Transmission Status: Received by [facility] Referrals: Sravan Brooks MD [Primary Care Provider] - Volodymyr Faust MD [Staff Physician] - Time of Disposition: 13:40 - Critical Care Critical Care Time: No Attestation: On , the high probability of a clinically significant, sudden or life threatening deterioration of the following system(s) required my full and direct attention, intervention and personal management. The time I documented below is in addition to time spent performing reported procedures but includes the following listed in this critical care notation. Medical Decision Making - Medical Records Medical records reviewed: Yes: I reviewed the patient's medical records. - Randy Inquiry Pt receiving controlled substance: No Vital Signs: 10/22/21 13:23 Temperature 97.7 F Temperature Source Oral Pulse Rate [Left Radial] 95 H Respiratory Rate 18 Blood Pressure [Right Arm] 141/70 H Blood Pressure Mean [Right Arm] 93 Blood Pressure Source [Right Arm] Automatic Cuff Blood Pressure Position [Right Arm] Sitting 02 Sat by Pulse Oximetry 99 Oxygen Delivery Method Room Air Orders (Tests/Meds): ED MEDICATIONS Discontinued Medications Generic Name Dose Route Start Last Admin Trade Name Freq PRN Reason Stop Dose Admin Epinephrine HCl 1 mg 10/22/21 13:34 10/22/21 14:24 Epinephrine 1 Mg/Ml Ampul TOPICAL 10/22/21 13:35 1 mg ONCE ONE Administration Lidocaine HCl 1 ml 10/22/21 13:34 10/22/21 14:24 Lidocaine 4% Topical Soln 1ml TP 10/22/21 13:35 1 ml ONCE ONE Administration Medical Decision Narrative: In summary this is a 76-year-old male with history of COPD, PE, chronic anticoagulation presenting to the emergency department with perirectal pain. Patient clinically stable on arrival. Vital signs within normal limits. Physical exam is concerning for external hemorrhoid. It is reducible. Not thrombosed. Patient has tenderness to palpation. Will treat with topical lidocaine. Patient counseled on the importance of regular bowel movements and avoiding constipation. Given prescription for MiraLAX. He has follow-up with his general surgeon, Dr. Faust on Sunday. I counseled him to discuss hemorrhoid management, especially if he would need hemorrhoidectomy in the future. Do not believe that surgical excision is indicated at this time, given that the hemorrhoid is not thrombosed and it is reducible. He also is on Eliquis. Counseled on sitz bath's. Given return precautions. General Adult HPI - General Stated complaint: knot size of egg on anus Time Seen by Provider: 10/22/21 13:35 Mode of Arrival: Ambulatory Source of Information: Patient Limitations: No Limitations - History of Present Illness HPI narrative: 76-year-old male presenting to the emergency department with rectal pain, mass. Noticed the symptoms yesterday. Has an area of painful swelling on the verg
[2021-10-22 14:01] VITALS: BP 128/61; PULSE 83; RESP 18; O2SAT 97
[2021-10-22 14:30] VITALS: BP 131/60; PULSE 89; RESP 18; O2SAT 98
[2021-10-22 15:00] VITALS: BP 131/60; PULSE 89; RESP 18; TEMP 36.5; O2SAT 98
== END 2021-10-22 15:01 | disposition home or self-care (01) ==
PROVIDERS: Emergency Provider Emergency Medicine; PCP Internal Medicine Adolescent Medicine
DX: K64.9 Unspecified hemorrhoids (principal); Z86.16 Personal history of COVID-19; J44.9 Chronic obstructive pulmonary disease, unspecified; F17.210 Nicotine dependence, cigarettes, uncomplicated; Z79.899 Other long term (current) drug therapy
CPT/HCPCS: 99281

== ENCOUNTER → 2021-10-24 10:37 | Outpatient (CLI) | payer MEDICARE, SELFPAY ==
[2021-10-24 11:33] LABS: Basophils # 0.1 K/mm3 (0-0.2); Basophils % 0.5 % (0.1-2.0); Eosinophils # 0.1 K/mm3 (0.0-0.4); Eosinophils % 0.7 % (0.1-12.0); Hematocrit 37.4 % (42.0-52.0); Hemoglobin 11.8 g/dL (14.1-18.0); Lymphocytes # 1.6 K/mm3 (0.7-4.5); Lymphocytes % 18.5 % (10-50); Mean Corpuscular HGB Conc 31.5 g/dL (31.8-35.4); Mean Corpuscular Volume 79.5 fl (80-94); Mean Platelet Volume 8.5 fl (7.4-10.4); Monocytes # 0.5 K/mm3 (0.1-1.0); Monocytes % 6.1 % (1.7-9.3); Neutrophils # 6.6 K/mm3 (1.8-7.8); Neutrophils % 74.2 % (37.0-80.0); Platelet Count 307 K/mm3 (142-424); Red Blood Count 4.71 M/mm3 (4.60-6.20); Red Cell Distribution Width 17.5 % (11.5-17.5); White Blood Count 8.9 K/mm3 (4.8-10.8)
[2021-10-24 11:59] LABS: Anion Gap 11.1 mEq/L (5-15); Blood Urea Nitrogen 11 mg/dl (9-20); Calcium 9.1 mg/dl (8.4-10.2); Carbon Dioxide 29 mmol/L (22.0-30.0); Chloride 101 mmol/L (98-107); Estimated Glomerular Filt Rate 82 ml/min (>60); GFR (African American) 100 ML/MIN (>60); Glucose 98 mg/dl (74-100); Potassium 4.1 mmoL/L (3.5-5.1); Sodium 137 mmol/L (136-145)
== END ==
PROVIDERS: PCP Internal Medicine Adolescent Medicine; Visit Provider Surgery
DX: K64.9 Unspecified hemorrhoids (principal); J18.1 Lobar pneumonia, unspecified organism; Z01.812 Encounter for preprocedural laboratory examination
CPT/HCPCS: 36415; 80048; 85025

== ENCOUNTER 2021-10-25 10:57 | Day surgery (SDC) | payer MEDICARE, SELFPAY ==
[2021-10-24 12:47] VITALS: BMI 28.5
[2021-10-25] VITALS (14 sets, daily range): BP systolic 99–159; BP diastolic 53–90; PULSE 72–95; RESP 16–24; TEMP 36.1–36.9; O2SAT 92–100
--- NOTE | 2021-10-25 11:43 | HMH.ANESCL ---
[facility] Anesthesia Checklist - Patient Identification Patient Identification: Arm Band - Structural Data Admitted From: Home Planned Operative Procedure/s: Hemorrhoidectomy Consent for Planned Operative Procedure(s) Verified: Yes - NPO Status Verified Time NPO: 00:00 - Additional verifications Anesthesia Reactions: Yes (drowsiness) Hx Blood Transfusions: No Blood Transfusion Reaction: No - Airway Assessment C-Spine Mobility Assessed: Yes TMJ Mobility Assessed: Yes Dentition: Edentulous - Neurological Assessment Level of Consciousness: Awake Hx Seizures: No Numbness or tingling in extremities: No - Anesthesia Plan Anesthesia Risk discussed: Yes Anesthesia Plan: Verified ASA Class: III Anesthesia Type: General [facility] History I have reviewed the patient's past medical history: Yes Medical History: Reports:: Cancer (Lung), Chronic Obstructive Pulmonary Disease (COPD), Hypertension, Pulmonary Embolism Denies:: Diabetes Mellitus Type 1, Diabetes Mellitus Type 2, Internal Pacemaker, MRSA, Seizures *Have you ever received a pneumonia vaccine?: Yes *Have you received a flu vaccine this season?: Yes Other Medical History: Denies: Blood Transfusion Reaction Anesthesia experience/problems:: Difficulty breathing Laterality Cases: Left: Other, Bilateral: Cataract Other Surgeries: Yes: Cancer Surgery, Cardiac Catheterization, Colonoscopy, EGD. No: Pacemaker Amputation: No Fractures: No - *Social History Smoking Status: Current every day smoker Tobacco Type: cigarettes # Packs/Day (cigarettes): 1 Alcohol Intake: never Substance Use Type: denies use *Occupational Status:: retired Housing: house Household Members: spouse *Travel in the last 8 weeks: None Family Hx:: Cancer, Coronary Artery Disease
--- NOTE | 2021-10-25 13:40 | P.OP_ITS ---
Date of procedure: 10/25/21 Pre-op Diagnosis:: Severe thrombosed hemorrhoid Post-op Diagnosis:: Same Procedure performed:: Extensive hemorrhoidectomy x2 in the left anterior lateral location and posterior lateral location Surgeon:: Volodymyr Faust MD PREASSEMBLER AND INSPECTOR:: Afia Howard Anesthesia: JOSÉ MANUEL Estimated blood loss (mL): 20 Clinical Note:: Patient is a 76-year-old male. He had presented to the office yesterday for follow-up after he had undergo upper endoscopy. He has had a significant cough and has developed severely symptomatic hemorrhoids. He was seen in the emergency department several days ago and given medical management. However his symptoms have been persistent and progressive. He has had severe pain and been unable to walk without difficulty due to the pain. In the office he had symptoms and findings of extensive left lateral thrombosed hemorrhoids. Options were discussed and plan was made for hemorrhoidectomy. Operative findings:: Patient actually had nearly circumferential hemorrhoids with prolapse. Most significant was left anterior lateral and posterior lateral location where there was significant thrombosis and actually excoriation of the overlying skin. Operative note:: Patient was taken to the operating room. He was positioned supine position. General anesthesia was induced ultimately. He was positioned in the lithotomy position. The area was prepped and draped in the standard surgical fashion. He had evidence of nearly circumferential prolapsing hemorrhoids. This was most pronounced in the left location. It was quite extensive. Kintyre anoscope was inserted. He had some excoriation of the skin secondary to swelling and thrombosis from the hemorrhoids. Attention was first turned to the left posterior lateral hemorrhoid. Anoderm was scored with #15 blade scalpel. Hemorrhoid tissue was then excised using the Gomez harmonic focus plus scalpel. This was sent as hemorrhoid tissue. Additional hemorrhoid tissue was excised using Metzenbaum dissection. Anoderm was reapproximated with a running locking 2-0 chromic followed by second layer of simple running chromic. Local anesthetic was infiltrated. Next attention was turned to the left anterior oh lateral hemorrhoid pile. Anoderm was scored with a scalpel. A's ultrasonic harmonic shear focus plus was used to excise the hemorrhoid tissue. Metzenbaum dissection was used to evacuate additional hemorrhoid tissue and blood clot. Local anesthetic was infiltrated. The anoderm was then oversewn as before with a running locking 2-0 chromic followed by simple running 2-0 chromic. There was good hemostasis. He did have some extensive hemorrhoid in the right location but this appeared to be more chronically thrombosed and not acutely inflamed. There was prolapse but not as severe. Local anesthetic was infiltrated into the right sided hemorrhoid pile as well. Plan was made to not excise this due to the potential for anal stenosis and due to it being less acutely thrombosed. Gelfoam roll soaked in topical hemostatic was inserted into the anorectal vault. Clean dry sterile dressing was applied. Condition: stable Disposition: PACU Specimens:: Hemorrhoid tissue Complications:: None immediately apparent
--- NOTE | 2021-10-25 13:57 | HMH.ANESI ---
[facility] Anesthesia Record Part I Intake, IV Amount: 1,000 Estimated blood loss (mL): 10 Urine output (mL): 0 Blood Pressure: 121/66 SaO2: 99 Pulse Rate: 76 Respiratory Rate: 16 Temperature: 98.4 F Patient is:: Drowsy, Oral/Nasal airway Stable to PACU at:: 13:44
--- NOTE | 2021-10-25 15:01 | PC.NURSE ---
Pt is very drowsy, does answer questions when asked but sitting in stretcher with eyes closed and moaning with every exhale. Denies pain. Coughing up thick whitish sputum. doesn't want to drink, says he doesn't think he can swallow. Encouraging pt to drink Julee Mist and using suction, encouraging coughing and deep breathing. Sats are 97% on 2L. at bedside.
--- NOTE | 2021-10-26 17:07 | HMH.ANESII ---
[facility] Anesthesia Record Part II Discharge Time: 14:24 Destination: Home PACU nurse assessment reviewed?: Yes Patient Condition:: Good Anesthesia Complications:: None Swallowing reflex intact?: Yes Cyanosis?: No Blood Pressure: 117/68 Pulse Rate: 87 Temperature: 98.4 F Mental Status: Alert & Oriented Pain level:: 0 Nausea and/or vomitting:: None Intake, IV Amount: 0
[2021-10-26 17:08] VITALS: BP 117/68; PULSE 87; TEMP 36.9
== END 2021-10-25 15:40 | disposition home or self-care (01) ==
LOC: OR 10:59
PROVIDERS: PCP Internal Medicine Adolescent Medicine; Visit Provider Surgery
DX: K64.3 Fourth degree hemorrhoids (principal); J44.9 Chronic obstructive pulmonary disease, unspecified; I10 Essential (primary) hypertension; Z85.118 Personal history of other malignant neoplasm of bronchus and lung; Z86.711 Personal history of pulmonary embolism; Z72.0 Tobacco use; Z80.9 Family history of malignant neoplasm, unspecified; Z82.49 Family history of ischemic heart disease and other diseases of the circulatory system; E78.5 Hyperlipidemia, unspecified; I25.10 Atherosclerotic heart disease of native coronary artery without angina pectoris; Z90.2 Acquired absence of lung [part of]; Z91.041 Radiographic dye allergy status
CPT/HCPCS: 46260; 94640; 96374; J0131

== ENCOUNTER → 2021-11-14 10:46 | Outpatient (CLI) | payer MEDICARE, SELFPAY ==
--- NOTE | 2021-11-14 10:49 | FL_ITS ---
FINAL REPORT CLINICAL HISTORY: . dysphagia fluoro time-1.55 FINDINGS: MODIFIED BARIUM SWALLOW HISTORY: Dysphagia. FINDINGS: Fluoroscopy was provided for the speech pathologist to evaluate the swallowing mechanism. The patient was given several different consistencies of barium while the swallow was visualized fluoroscopically. The report of the speech pathologist should be consulted prior to making dietary decisions. IMPRESSION: Modified barium swallow under fluoroscopic guidance. Please see speech pathologist's report for further details and dietary recommendations. Fluoroscopy time was 1 minute 55 seconds A total of 10 cine runs were saved Reviewed, Interpreted and Dictated by Volodymyr Ruiz III, MD Transcribed by Dorota Payne PA-C Authenticated by Volodymyr Ruiz III, MD on 12/02/2021 09:51:44 AM [facility]
--- NOTE | 2021-11-14 11:21 | HMH.SLMBS2 ---
Speech & Language Evaluation Speech/Language Mod Barium Swallow Start: 11/14/21 11:16 Freq: once Status: Complete Protocol: Document 11/14/21 11:16 RAVINDRA (Rec: 11/14/21 11:21 RAVINDRA [id number]) General Information General Current Food Consistancy Regular,Thin Liquids Dentition Upper Only Oxygen Status Room Air Ability to Follow Directions Excellent Communication Ability No Impairment MBS Recommendations Diet Dietary Recommendations Regular,Thin Liquids Treatment/Strategies Strategy/Precaution Recommend Sitting Upright (90 deg),Small Bites and Sips,Alternate Liquids/Solids Mod Barium Swallow Impressions Summary and Impressions Oral Phase Impression Minimal Impairment Oral Phase Summary Mild premature spillage with mechanical soft Pharyngeal Phase Impression No Impairment (WFL) Speech/Language MBS Assessment/Goals/Plan Assessment Date of Evaluation: 11/14/21 Evaluation Type Initial Certification Assessment/Problems Dysphagia Does Patient Qualify for Service No Qualify/Failure Comment Based on the results of the modified barium swallow study, patient does not require skilled speech therapy services at this time. Recommendations PHYSICIAN CERTIFICATION: The specified therapy services are required, authorized, and reviewed every 30 days. Diet Recommendations Normal Liquid Type Recommendations Normal/Thin Dysphagia Swallow Precautions/Strategies Sitting Upright (90 deg),Small Bites and Sips,Alternate Liquids/Solids Place Food on Either side of Mouth Additional Consults Recommended Other Comment GI Plan Pt/Guardian verbally ack understanding Yes of dx/prognosis/goals Pt/Guardian verbally ack understanding Yes of/consent to tx prog G -code Required No Mod Barium Swallow Setup Exam Setup Radiologist Volodymyr Ruiz Level of Consciousness Awake,Alert,Appropriate, Follows Commands Position (degrees) 90 Mod Barium Swallow-Lat View Textures Lateral View Food Presentation Thin Liquid via Cup,Thin Liquid via Straw,Pureed Food- Thick,Mech. Soft Food- Regular ,Regular Food,Pudding Oral Phase Labial Closure No Impairment (WFL) Bolus Formation Pooling L/R No Impairment (WFL) Bolus Formation under Tongue No Impairment (WFL) Bolus Formation Scattered Loss No Impairment (WFL)
== END ==
PROVIDERS: PCP Internal Medicine Adolescent Medicine; Visit Provider Student in an Organized Health Care Education/Training Program
DX: R13.10 Dysphagia, unspecified (principal)
CPT/HCPCS: 70371; 92611

== ENCOUNTER 2022-01-03 16:05 | Emergency (ER) | payer MEDICARE, SELFPAY ==
[2022-01-03 16:07] VITALS: BP 145/79; PULSE 71; RESP 18; TEMP 36.9; O2SAT 96; BMI 28.7
--- NOTE | 2022-01-03 16:28 | XR_ITS ---
PROCEDURE INFORMATION: Exam: XR Chest Exam date and time: 01/03/2022 4:35 PM Age: 76 years old Clinical indication: Cough; Additional info: Coughing bloody mucus TECHNIQUE: Imaging protocol: XR of the chest. Views: 2 views. COMPARISON: CR XR CHEST PORTABLE 10/19/2021 7:07 PM FINDINGS: Lungs: Minimal left mid and lower lung zone and right lower lobe ground-glass and linear opacities, likely areas of atelectasis/scarring and/or minimal pneumonitis. Pleural spaces: Minimal blunting of the left costophrenic angle, likely small left pleural effusion. Heart/Mediastinum: Normal. Diaphragm: Mild eventration of the left posterior hemidiaphragm. Bones/joints: Multilevel thoracic spine degenerative disc space narrowing and osteophyte formation. IMPRESSION: 1. Minimal left mid and lower lung zone and right lower lobe ground-glass and linear opacities, likely areas of atelectasis/scarring and/or minimal pneumonitis. 2. Small left pleural effusion.
[2022-01-03 16:36] LABS: Coronavirus 19, PCR Not Detected (NotDetected); Influenza A, PCR Not Detected (NotDetected); Influenza B, PCR Not Detected (NotDetected)
--- NOTE | 2022-01-03 16:38 | CT_ITS ---
PROCEDURE INFORMATION: Exam: CT Chest Without Contrast; Diagnostic Exam date and time: 01/03/2022 4:47 PM Age: 76 years old Clinical indication: Cough; Additional info: Pneumonia vs lung CA assessment TECHNIQUE: Imaging protocol: Diagnostic computed tomography of the chest without contrast. Radiation optimization: All CT scans at this facility use at least one of these dose optimization techniques: automated exposure control; mA and/or kV adjustment per patient size (includes targeted exams where dose is matched to clinical indication); or iterative reconstruction. COMPARISON: CT CHEST WO CON 10/17/2021 1:09 PM and chest radiograph dated 01/03/2022 FINDINGS: Lungs: Moderate upper lobe predominant centrilobular and paraseptal emphysema, left greater than right, with chronic obstructive pulmonary physiologic changes. Right upper and bilateral lower lobe bronchial wall thickening, compatible with reactive airway disease or bronchitis. Left anteroapical pleuroparenchymal scarring, similar to comparison study. Changes of prior left upper lobectomy. Patchy ground-glass and minimal linear opacities within the left lower lobe, likely multifocal pneumonia. Calcified granuloma within the right lower lobe. Pleural spaces: Small left pleural effusion with associated atelectasis. Heart: Mild three-vessel coronary artery atherosclerotic calcification. Pulmonary arteries: Main pulmonary artery enlarged, measuring 31 mm at the level of the pulmonary artery bifurcation, compatible with pulmonary arterial hypertension. Aorta: Atherosclerotic calcification of the thoracic aorta, without aneurysm. Lymph nodes: Calcified subcarinal lymph nodes, compatible with prior granulomatous disease. Gallbladder and bile ducts: Cholelithiasis. Bones/joints: Multilevel thoracic spine degenerative disc space narrowing and osteophyte formation. Soft tissues: Normal. IMPRESSION: 1. Bilateral upper and lower lobe bronchial wall thickening, compatible with reactive airway disease or bronchitis. 2. Patchy ground-glass and minimal linear opacities within the left lower lobe, likely multifocal pneumonia. 3. Small left pleural effusion with associated atelectasis. 4. Minimal areas of pleuroparenchymal scarring within the anterosuperior aspect of the left lower lobe, unchanged.
--- NOTE | 2022-01-03 16:40 | HMH.EDGENADL ---
ED Disposition Clinical Impression: Jessenia-Palafox syndrome, Walking pneumonia Disposition: Home, Self-Care Condition on Discharge: Good Instructions: DI for Gastrointestinal Bleeding Prescriptions: Azithromycin 250 mg PO DAILY #1 packet Transmission Status: Pending to [facility] Referrals: Sravan Brooks MD [Primary Care Provider] - - Critical Care Critical Care Time: No Attestation: On 01/03/22, the high probability of a clinically significant, sudden or life threatening deterioration of the following system(s) required my full and direct attention, intervention and personal management. The time I documented below is in addition to time spent performing reported procedures but includes the following listed in this critical care notation. Medical Decision Making - Medical Records Medical records reviewed: Yes: I reviewed the patient's medical records. - Randy Inquiry Pt receiving controlled substance: No Vital Signs: 01/03/22 16:07 Temperature 98.4 F Temperature Source Oral Pulse Rate [Left Radial] 71 Respiratory Rate 18 Blood Pressure [Right Arm] 145/79 H Blood Pressure Mean [Right Arm] 101 Blood Pressure Source [Right Arm] Automatic Cuff Blood Pressure Position [Right Arm] Sitting 02 Sat by Pulse Oximetry 96 Oxygen Delivery Method Room Air - Lab Data Lab results reviewed: Yes: I reviewed the patient's lab results. Lab Results 01/03/22 16:30: SARS-CoV-2 (PCR) Not detected, Influenza A Untype (PCR) Not detected, Influenza Type B (PCR) Not detected Medical Decision Narrative: Patient is a 76-year-old male presenting to the emergency department chief complaint of hemoptysis. Differential diagnosis for this patient includes jessenia Palafox tears of the throat, URI, COVID-19, influenza, COPD exacerbation among others. Have low suspicion for full-thickness tears, Boerhaave syndrome,. Given patient's history of lung cancer, increase in symptoms we will perform a CT chest without contrast to assess patient's current lungs. Denies chest pain, is not tachypneic or tachycardic, I also briefly reports taking his blood thinners have low suspicion for pulmonary embolism. Patient able to show me a small amount of blood-streaked sputum. CT chest showed sequela of bronchitis, versus any walking or viral pneumonia. Given patient has COPD history we will give patient azithromycin. Instructed to follow-up with his primary care physician for reassessment. General Adult HPI - General Chief complaint: GI Bleed Stated complaint: cough up blood,abd pain,cancer 2019 Time Seen by Provider: 01/03/22 16:20 Mode of Arrival: Ambulatory Limitations: No Limitations Description of Symptoms (Recalled from ER Triage Doc. by RN): c/o coughing up blood for 2 days with mucus - History of Present Illness HPI narrative: Is a 76-year-old male with past medical history of lung cancer status post resection of percentage of his left lung presenting to the emergency department with chief complaint of coughing and bloody sputum. Patient states he also had a past history of pulmonary embolism, however patient is currently on blood thinners, and has taken his blood thinners as reported. Patient dates the past 3 to 4 days he is having significant coughing, in the last 1 to 2 days he has noticed a small amount of blood in his sputum after coughing. Did not denies any other infectious symptoms including nausea vomiting diarrhea, black stools, dark stools, body aches. - Related Data Home Medications Medication Instructions Recorded Confirmed Aspirin [Aspirin 81mg EC Tab] 81 mg PO DAILY 04/13/18 11/24/21 Omeprazole Magnesium [Prilosec Otc 20 mg PO DAILY 04/13/18 11/24/21 20mg Tab] lisinopriL [Lisinopril 40mg Tablet] 40 mg PO DAILY 04/13/18 11/24/21 Apixaban [Eliquis] 5 mg PO DAILY 05/18/20 11/24/21 multivitamin 1 tab PO DAILY 01/20/21 11/24/21 atorvastatin 20 mg tablet 20 mg PO DAILY tab 01/25/21 11/24/21 sandro
--- NOTE | 2022-01-03 16:48 | PC.NURSE ---
Pt in radiology
[2022-01-03 18:51] VITALS: BP 140/65; PULSE 66; RESP 20; TEMP 36.9; O2SAT 97
== END 2022-01-03 18:51 | disposition home or self-care (01) ==
PROVIDERS: Emergency Provider Emergency Medicine; PCP Internal Medicine Adolescent Medicine
DX: K22.6 Gastro-esophageal laceration-hemorrhage syndrome (principal); J18.9 Pneumonia, unspecified organism; J44.9 Chronic obstructive pulmonary disease, unspecified; I10 Essential (primary) hypertension; F17.210 Nicotine dependence, cigarettes, uncomplicated; Z85.118 Personal history of other malignant neoplasm of bronchus and lung
CPT/HCPCS: 71046; 71250; 99284; C9803; U0003; U0005

== ENCOUNTER 2022-01-29 17:50 | Emergency (ER) | payer MEDICARE, SELFPAY ==
[2022-01-29] VITALS (8 sets, daily range): BP systolic 131–157; BP diastolic 67–84; PULSE 64–80; RESP 14–22; TEMP 36.6–36.9; O2SAT 95–100; BMI 28.4
--- NOTE | 2022-01-29 18:22 | XR_ITS ---
PROCEDURE INFORMATION: Exam: XR Chest Exam date and time: 01/29/2022 6:22 PM Age: 76 years old Clinical indication: Cough TECHNIQUE: Imaging protocol: XR of the chest. Views: 2 views. COMPARISON: CT CHEST WO CON 01/03/2022 4:47 PM FINDINGS: Lungs: Unremarkable. No consolidation. Pleural spaces: Unremarkable. No pleural effusion. No pneumothorax. Heart/Mediastinum: Unremarkable. No cardiomegaly. Bones/joints: Unremarkable. IMPRESSION: No acute findings.
[2022-01-29 18:25] LABS: UTC Influenza A Antigen Negative (Negative); UTC Influenza B Antigen Negative (Negative)
--- NOTE | 2022-01-29 18:49 | HMH.EDUTC ---
[facility] [place] Clinical Impression: Chest pressure Disposition: Still a Patient Condition on Discharge: Good Referrals: Sravan Brooks MD [Primary Care Provider] - Time of Disposition: 19:18 (sent to ed for eval) Medical Decision Making - Randy Inquiry Pt receiving controlled substance: No Vital Signs: 01/29/22 18:10 Temperature 97.8 F Temperature Source Oral Pulse Rate [Right Brachial] 80 Respiratory Rate 18 Blood Pressure [Right Arm] 133/67 Blood Pressure Mean [Right Arm] 89 Blood Pressure Source [Right Arm] Automatic Cuff Blood Pressure Position [Right Arm] Sitting 02 Sat by Pulse Oximetry 97 Oxygen Delivery Method Room Air - Lab Data Lab Results 01/29/22 18:23: Influenza Type A Ag Negative, Influenza Type B Ag Negative [facility] [place] HPI - General Chief complaint: Urgent Treatment Center Stated complaint: SOB,Weakness,Body aches Time Seen by Provider: 01/29/22 18:49 Mode of Arrival: Ambulatory Source of Information: Patient Limitations: No Limitations Description of Symptoms (Recalled from Triage Doc. by RN): PATIENT C/O BODY ACHES, SORE MUSCLES, COUGH, SOA AND WEAKNESS. HE STATES HE WAS TREATED FOR WALKING PNEUMONIA APPROX 3-4 WEEKS AGO BUT DOES NOT FEEL BETTER HEENT Symptoms (Recalled from RN notes): No Resp Symptoms (Recalled from RN notes): Yes Skin Symptoms (Recalled from RN notes): No MS Symptoms (Recalled from RN notes): No Functional Status (Recalled from RN notes): WNL - History of Present Illness Provider Complaint: 76 yr old male presents for cough,weakness, chest pressure pt states (feels like it pushing his whole body down),soa and body aches, pt states he was dx with pneumonia 4 weeks ago and feels he has not gotten over it. - Related Data Home Medications Medication Instructions Recorded Confirmed Aspirin [Aspirin 81mg EC Tab] 81 mg PO DAILY 04/13/18 11/24/21 Omeprazole Magnesium [Prilosec Otc 20 mg PO DAILY 04/13/18 11/24/21 20mg Tab] lisinopriL [Lisinopril 40mg Tablet] 40 mg PO DAILY 04/13/18 11/24/21 Apixaban [Eliquis] 5 mg PO DAILY 05/18/20 11/24/21 multivitamin 1 tab PO DAILY 01/20/21 11/24/21 atorvastatin 20 mg tablet 20 mg PO DAILY tab 01/25/21 11/24/21 budesonide 160 mcg-glycopyr 9 2 inh INHALATION ONCE g 01/25/21 11/24/21 mcg-formot 4.8 mcg/actuation HFA inhaler metoprolol succinate 25 mg 25 mg PO DAILY tab 01/25/21 11/24/21 tablet,extended release 24 hr aluminum hydrox-magnesium carb 95 15 ml PO QPCHS 09/06/21 11/24/21 mg-358 mg/15 mL oral suspension Metoprolol Tartrate [Lopressor 12.5 mg PO BID 10/04/21 11/24/21 25mg tablet] Doxycycline Monohydrate 100 mg PO Q12 10/24/21 11/24/21 [Doxycycline Crawford 100mg Tab] Metoclopramide HCl [Reglan 10mg 10 mg PO QID 10/24/21 11/24/21 Tab] Previous Rx's Medication Instructions Recorded furosemide 20 mg tablet 20 mg PO Q OTHER DAY PRN #30 tab 02/09/21 Phenyleph/Shark Emilia.oil/Mo/Pet 28 gm RC BID PRN #280 gm 10/22/21 [Hemorrhoidal Ointment] polyethylene glycoL 3350 [Miralax 17 gm PO DAILYP PRN #30 packet 10/22/21 17gm Packet] hydrocodone 5 mg-acetaminophen 325 1 - 2 tab PO Q6HP PRN #21 tab 11/03/21 mg tablet lidocaine 5 % topical ointment 1 applic TOPICAL DAILY #30 g 11/07/21 Azithromycin 250 mg PO DAILY #1 packet 01/03/22 sodium,potassium,mag sulfates 17.5 See Rx Instructions PO .COMPLEX 01/03/22 gram-3.13 gram-1.6 gram oral soln #354 ml Allergies Allergy/AdvReac Type Severity Reaction Status Date / Time Iodinated Contrast Media Allergy Intermediate Hives Verified 11/24/21 09:55 [Iodinated Contrast Media - Oral and] prednisone AdvReac Intermediate Unknown Verified 11/24/21 09:55 allergy reaction - Worker's Comp Is this a Worker's Comp case?: No [facility] History - Hepatitis A Screen Drug use history?: No High risk sexual behaviors?: No History of sexually transmitted infection?: No Currently employed?: No Childcare worker?: No Do you h
--- NOTE | 2022-01-29 19:31 | ECG_ITS ---
APPROVED REPORT Exam: Resting ECG HR:76 bpm ECG Measurements Heart Rate [address] 165 P 56 QRSd 102 QRS -65 QT 373 T 76 QTc 403 Conclusion SINUS RHYTHM WITH SINUS ARRHYTHMIA LEFT AXIS DEVIATION [QRS AXIS < -30] ABNORMAL ECG UNCONFIRMED REPORT Electronically signed by : Sravan Brooks MD 02/01/2022 10:14:45
[2022-01-29 19:42] LABS: Basophils # 0.2 K/mm3 (0-0.2); Eosinophils # 0.1 K/mm3 (0.0-0.4); Eosinophils % 1.1 % (0.1-12.0); Hematocrit 36.7 % (42.0-52.0); Hemoglobin 11.5 g/dL (14.1-18.0); Lymphocytes % 25.3 % (10-50); Mean Corpuscular HGB Conc 31.4 g/dL (31.8-35.4); Mean Corpuscular Hemoglobin 24.1 pg (27.0-31.2); Mean Corpuscular Volume 76.8 fl (80-94); Mean Platelet Volume 8.6 fl (7.4-10.4); Monocytes # 0.5 K/mm3 (0.1-1.0); Monocytes % 6.1 % (1.7-9.3); Neutrophils # 5.1 K/mm3 (1.8-7.8); Neutrophils % 65.5 % (37.0-80.0); Platelet Count 284 K/mm3 (142-424); Red Blood Count 4.78 M/mm3 (4.60-6.20); Red Cell Distribution Width 17.9 % (11.5-17.5); White Blood Count 7.8 K/mm3 (4.8-10.8)
[2022-01-29 19:45] LABS: Chloride 102 mmol/L (98-107)
[2022-01-29 19:46] LABS: Potassium 4.3 mmoL/L (3.5-5.1); Sodium 133 mmol/L (136-145)
[2022-01-29 19:49] LABS: Anion Gap 9.3 mEq/L (5-15); Blood Urea Nitrogen 11 mg/dl (9-20); Calcium 7.9 mg/dl (8.4-10.2); Carbon Dioxide 26 mmol/L (22.0-30.0); Creatinine Clearance Estimated 77 mL/min (50-200); Estimated Glomerular Filt Rate 73 ml/min (>60); GFR (African American) 88 ML/MIN (>60); Glucose 105 mg/dl (74-100); Lactic Acid 1.3 mmol/L (0.7-2.1)
--- NOTE | 2022-01-29 19:52 | CT_ITS ---
PROCEDURE INFORMATION: Exam: CT Chest Without Contrast; Diagnostic Exam date and time: 01/29/2022 8:01 PM Age: 76 years old Clinical indication: Shortness of breath; Additional info: HX lung CA, progressive fatigue TECHNIQUE: Imaging protocol: Diagnostic computed tomography of the chest without contrast. Radiation optimization: All CT scans at this facility use at least one of these dose optimization techniques: automated exposure control; mA and/or kV adjustment per patient size (includes targeted exams where dose is matched to clinical indication); or iterative reconstruction. COMPARISON: CT CHEST WO CON 01/03/2022 4:47 PM FINDINGS: Lungs: Severe emphysematous changes. Patchy nodular infiltrate right lower lobe. 12 mm pulmonary nodule noncalcified. PET-CT or biopsy per Fleischner guidelines. Pleural spaces: Left lower lobe posterior segment spiculated pleural-based mass 2.2 cm. Heart: Unremarkable. No cardiomegaly. No pericardial effusion. Lymph nodes: Unremarkable. No enlarged lymph nodes. Aorta: Unremarkable. No aortic aneurysm. Gallbladder and bile ducts: Cholelithiasis. Bones/joints: Unremarkable. No acute fracture. Soft tissues: Unremarkable. IMPRESSION: 1. Left lower lobe posterior segment spiculated pleural-based mass 2.2 cm. 2. Patchy nodular infiltrate right lower lobe. 12 mm pulmonary nodule noncalcified. Three month chest CT, PET-CT or biopsy per Fleischner guidelines.
--- NOTE | 2022-01-29 19:57 | HMH.EDGENADL ---
ED Disposition Condition on Discharge: Fair - Critical Care Critical Care Time: No <Luis Alberto Bella - Last Filed: 01/29/22 20:35> <ReaganNoel - Last Filed: 01/29/22 21:28> Clinical Impression: Chest pressure COPD (chronic obstructive pulmonary disease) Qualifiers: COPD type: unspecified COPD Qualified Code(s): J44.9 - Chronic obstructive pulmonary disease, unspecified Disposition: Home, Self-Care Instructions: DI for Atypical Chest Pain Additional Instructions: see dr brooks susana for follow up Prescriptions: dexAMETHasone [Decadron 4mg tablet] 4 mg PO BID #10 tab Transmission Status: Pending to [facility] Minocycline HCl [Minocycline HCl 100mg Tab*] 100 mg PO BID #14 tab Transmission Status: Pending to [facility] Referrals: Sravan Brooks MD [Primary Care Provider] - Attestation: On 01/29/22, the high probability of a clinically significant, sudden or life threatening deterioration of the following system(s) required my full and direct attention, intervention and personal management. The time I documented below is in addition to time spent performing reported procedures but includes the following listed in this critical care notation. Medical Decision Making - Randy Inquiry Pt receiving controlled substance: No - Lab Data Result diagrams: 01/29/22 19:25 01/29/22 19:25 <Luis Alberto Bella - Last Filed: 01/29/22 20:35> - Lab Data Lab results reviewed: Yes: I reviewed the patient's lab results. Result diagrams: 01/29/22 19:25 01/29/22 19:25 - Radiology Data #1 Image(s): Chest Image Reviewed: Yes I have reviewed radiologist's interpretation Preliminary Findings: Normal/NAD - CT Data CT Scan: Chest Time Received: 21:[address] Reviewed: Yes: I have viewed the radiologist's interpretation Preliminary Findings: Abnormal (see report ) - ECG Data Tracing #1 Normal Sinus Rhythm: Yes Ischemic changes: non-specific ST-T wave changes - Physician Consults Physician Consulted: turner Reason -: Pt condition - LEON Score for Non-Stemi Age of Patient: 70-79 years old Heart Rate: 70-89 bpm Systolic Blood Pressure: 120-139 mmhg Serum Creatinine: 0.80-1.19 mg/dl CHF [place] Class: I-No CHF Other Risk Factors: None Non-Stemi Risk Score: 125 <Noel Kirk S - Last Filed: 01/29/22 21:28> Vital Signs: 01/29/22 18:10 01/29/22 19:23 01/29/22 19:35 Temperature 97.8 F 98.5 F Temperature Source Oral Oral Pulse Rate 66 Pulse Rate [Right Brachial] 80 70 Respiratory Rate 18 16 Blood Pressure 144/75 H Blood Pressure [Right Arm] 133/67 144/75 H Blood Pressure Mean 107 Blood Pressure Mean [Right Arm] 89 98 Blood Pressure Source [Right Arm] Automatic Cuff Blood Pressure Position [Right Arm] Sitting 02 Sat by Pulse Oximetry 97 99 98 Oxygen Delivery Method Room Air Room Air 01/29/22 20:00 01/29/22 20:31 Temperature Temperature Source Pulse Rate 72 64 Pulse Rate [Right Brachial] Respiratory Rate 17 22 Blood Pressure 131/84 149/76 H Blood Pressure [Right Arm] Blood Pressure Mean Blood Pressure Mean [Right Arm] Blood Pressure Source [Right Arm] Blood Pressure Position [Right Arm] 02 Sat by Pulse Oximetry 95 100 Oxygen Delivery Method - Lab Data Lab Results 01/29/22 18:23: Influenza Type A Ag Negative, Influenza Type B Ag Negative 01/29/22 19:25: NT-Pro-B Natriuret Pep 278 01/29/22 19:25: Magnesium 1.9 01/29/22 19:25: WBC 7.8, RBC 4.78, Hgb 11.5 L, Hct 36.7 L, MCV 76.8 L, MCH 24.1 L, MCHC 31.4 L, RDW 17.9 H, Plt Count 284, MPV 8.6, Neut % (Auto) 65.5, Lymph % (Auto) 25.3, [place] % (Auto) 6.1, Eos % (Auto) 1.1, Baso % (Auto) 2.0, Neut # (Auto) 5.1, Lymph # (Auto) 2.0, [place] # (Auto) 0.5, Eos # (Auto) 0.1, Baso # (Auto) 0.2 01/29/22 19:25: Sodium 133 L, Potassium 4.3, Chloride 102, Carbon Dioxide 26, Anion Gap 9.3, BUN 11, Creatinine 1.00, Estimated Creat Clear 77, Estimated GFR 73, Est GFR ( Amer) 88, Glucose 105 H
[2022-01-29 19:59] LABS: NT Pro Brain Natriuretic Pep. 278 pg/mL (0-450)
[2022-01-29 20:01] LABS: Troponin I < 0.01 ng/ml (0.00-0.034)
[2022-01-29 20:11] LABS: Magnesium 1.9 mg/dl (1.6-2.3)
[2022-01-29 20:29] LABS: T4 (Thyroxine) 8.4 ug/dl (5.53-11.0)
[2022-01-29 20:42] LABS: Thyroid Stimulating Hormone 2.48 uIU/mL (0.465-4.68)
== END 2022-01-29 22:05 | disposition home or self-care (01) ==
LOC: UTC 19:18 → ER 19:20
PROVIDERS: Nurse Practitioner Family; Emergency Provider Student in an Organized Health Care Education/Training Program; PCP Internal Medicine Adolescent Medicine
DX: J44.9 Chronic obstructive pulmonary disease, unspecified; R07.9 Chest pain, unspecified; R94.31 Abnormal electrocardiogram [ECG] [EKG]; M79.10 Myalgia, unspecified site; R53.1 Weakness; I27.20 Pulmonary hypertension, unspecified; I10 Essential (primary) hypertension; I25.10 Atherosclerotic heart disease of native coronary artery without angina pectoris; E78.5 Hyperlipidemia, unspecified; F17.210 Nicotine dependence, cigarettes, uncomplicated; Z80.9 Family history of malignant neoplasm, unspecified; Z79.4 Long term (current) use of insulin; Z79.51 Long term (current) use of inhaled steroids; Z79.82 Long term (current) use of aspirin; Z79.01 Long term (current) use of anticoagulants; Z91.041 Radiographic dye allergy status; Z88.8 Allergy status to other drugs, medicaments and biological substances; Z86.718 Personal history of other venous thrombosis and embolism; Z86.711 Personal history of pulmonary embolism; Z85.9 Personal history of malignant neoplasm, unspecified; Z82.49 Family history of ischemic heart disease and other diseases of the circulatory system
CPT/HCPCS: 71046; 71250; 80048; 83605; 83735; 83880; 84436; 84443; 84484; 85025; 87040; 87804; 93005; 96365; 96374; 96375; 99285

== ENCOUNTER → 2022-02-01 09:29 | Outpatient (CLI) | payer MEDICARE, SELFPAY | PROVIDERS: Visit Provider Surgery | DX: Z01.812 Encounter for preprocedural laboratory examination (principal); Z11.52 Encounter for screening for COVID-19; Z12.11 Encounter for screening for malignant neoplasm of colon | CPT/HCPCS: C9803; U0003; U0005 ==

== ENCOUNTER 2022-02-03 06:33 | Day surgery (SDC) | payer MEDICARE, SELFPAY ==
[2022-02-01 12:48] VITALS: BMI 43.3
[2022-02-03 06:55] VITALS: BP 139/88; PULSE 67; RESP 18; TEMP 36.7; O2SAT 99
--- NOTE | 2022-02-03 07:04 | SUR.PREOP ---
patient has cough with phlegm production thick yellow started 1 week ago stated by patient
--- NOTE | 2022-02-03 07:14 | P.PN_ITS ---
[facility] Anesthesia Checklist - Structural Data Admitted From: Home Planned Operative Procedure/s: colonoscopy Consent for Planned Operative Procedure(s) Verified: Yes - Additional verifications Anesthesia Reactions: Yes (drowsiness) Hx Blood Transfusions: No Blood Transfusion Reaction: No - Airway Assessment C-Spine Mobility Assessed: Yes TMJ Mobility Assessed: Yes Dentition: Edentulous - Neurological Assessment Level of Consciousness: Awake, Alert, Appropriate - Anesthesia Plan Anesthesia Risk discussed: Yes Anesthesia Plan: Verified ASA Class: III Anesthesia Type: MAC [facility] History I have reviewed the patient's past medical history: Yes Medical History: Reports:: Cancer (lung), Chronic Obstructive Pulmonary Disease (COPD), Hyperlipidemia, Hypertension, Pulmonary Embolism Denies:: Diabetes Mellitus Type 1, Diabetes Mellitus Type 2, Internal Pacemaker, MRSA, Seizures *Have you ever received a pneumonia vaccine?: Yes *Have you received a flu vaccine this season?: Yes Other Medical History: Denies: Blood Transfusion Reaction Anesthesia experience/problems:: none Laterality Cases: Left: Other Other Surgeries: Yes: Cancer Surgery, Cardiac Catheterization, Colonoscopy, EGD, Other. No: Pacemaker Amputation: No Fractures: No - *Social History Last grade of school completed: 11th or 12th Smoking Status: Current every day smoker Tobacco Type: cigarettes # Packs/Day (cigarettes): 1 Alcohol Intake: never Substance Use Type: denies use *Occupational Status:: retired Housing: house Household Members: spouse *Travel in the last 8 weeks: None Family Hx:: Cancer
[2022-02-03 07:26] VITALS: O2SAT 99
[2022-02-03 08:50] VITALS: BP 136/72; PULSE 73; RESP 16; TEMP 36.4; O2SAT 92
--- NOTE | 2022-02-03 08:57 | P.PCN_ITS ---
- Procedure: Date: 02/03/22 Patient Date of :: 1945 Procedure Performed:: Total colonoscopy to terminal ileum with numerous polypectomy using snare Indications:: Patient is a 76-year-old male from [facility] with history of lung cancer, COPD, hypertension, history of pulmonary embolism. He had undergone colonoscopy by Dr. Gutiérrez on 05/12/2015 in [facility] and had numerous complex polyps removed. He had multiple tubular adenomas and sessile serrated adenoma. At that time he recommended repeat colonoscopy in 2 to 3 years. Patient recently had positive Cologuard. He was scheduled for colonoscopy. I had seen the patient and performed extensive hemorrhoidectomy on him on 10/25/2021. Performing Provider:: Volodymyr Faust MD Referring Provider:: Sravan Brooks MD Sedation:: MAC sedation Procedure:: Patient was taken to endoscopy procedure room. He was positioned in lateral decubitus position. Adequate intravenous sedation was achieved. Digital examination revealed minimal external hemorrhoids. Variable stiffness Olympus colonoscope was inserted via the anus. Is advanced to the cecum. Colonic preparation was good. However there was some spasticity of the colon the patient did have actively regular jerking movements throughout the duration of the procedure. The ileocecal valve and appendiceal orifice were clearly identified. Colonoscope was advanced into the terminal ileum which appeared grossly normal. In the ascending colon there was noted to be a polyp removed with cold snare. Colonoscope was withdrawn through the colon with surveillance carried out. In the descending colon there was a polyp encountered and removed with hot snare. Initially this was unable to be retrieved. The colonoscope was then readvanced and it was noted within the cecum there were 2 relatively large polyps removed with hot snare. Colonoscope was then once again slowly withdrawn. In the descending colon there were a couple of polyps relatively small but 1 sessile polyp requiring injection with elevating for removal with snare. These were both removed with cold snare. It was unclear if the large polyp which had been removed with hot snare in the descending colon was retrieved. Therefore the colonoscope was once again advanced all the way to the cecum and withdrawn with careful surveillance. There was noted to be a polyp which had already been removed free-floating in the colon and this was retrieved. Retroflexion within the rectum revealed minor internal hemorrhoids. Colonoscope was withdrawn. He did have some pandiverticulosis noted. Findings:: Multiple complex polyps as noted above. He had approximately 6 polyps removed a couple of these were close to 2 cm Rare pandiverticulosis Minimal internal hemorrhoids Recommendations:: Likely repeat colonoscopy in 2 years pending pathology Complications:: None immediately apparent Estimated blood obtained (mL): 2
[2022-02-03 09:00] VITALS: BP 143/73; PULSE 69; RESP 16; TEMP 36.4; O2SAT 93
[2022-02-03 09:10] VITALS: BP 147/76; PULSE 67; RESP 16; TEMP 36.4; O2SAT 93
[2022-02-03 09:30] VITALS: BP 140/63; PULSE 68; RESP 16; TEMP 36.4; O2SAT 95
== END 2022-02-03 09:32 | disposition home or self-care (01) ==
LOC: OUTP 06:35
PROVIDERS: PCP Internal Medicine Adolescent Medicine; Visit Provider Surgery
PROC: 0DJD8ZZ Inspection of Lower Intestinal Tract, Via Natural or Artificial Opening Endoscopic (ICD-10-PCS; principal; 2022-02-03 07:30)
DX: K63.5 Polyp of colon (principal); K57.30 Diverticulosis of large intestine without perforation or abscess without bleeding; K64.9 Unspecified hemorrhoids; K58.9 Irritable bowel syndrome, unspecified; E78.5 Hyperlipidemia, unspecified; I10 Essential (primary) hypertension; J44.9 Chronic obstructive pulmonary disease, unspecified; Z85.118 Personal history of other malignant neoplasm of bronchus and lung; Z86.711 Personal history of pulmonary embolism; Z72.0 Tobacco use; Z80.9 Family history of malignant neoplasm, unspecified; Z88.8 Allergy status to other drugs, medicaments and biological substances; Z91.041 Radiographic dye allergy status; Z79.82 Long term (current) use of aspirin; Z79.899 Other long term (current) drug therapy
CPT/HCPCS: 45381; 45385; 88300; 88305; J2704

== ENCOUNTER → 2022-02-23 10:55 | Outpatient (CLI) | payer MEDICARE, SELFPAY ==
--- NOTE | 2022-02-23 11:01 | MR_ITS ---
FINAL REPORT CLINICAL HISTORY: HEADACHE with dizziness. weakness x4wks. FINDINGS: Multiplanar MR imaging of the brain was performed without contrast. There is mild age-appropriate atrophy. There are scattered foci of increased T2 signal in the cerebral white matter that have a nonspecific appearance but likely represent moderate chronic ischemic/gliotic changes. There is no evidence of intracranial hemorrhage or mass. No abnormal ventricular dilatation is identified. No abnormal extra-axial fluid collection is seen. No abnormality is seen on the diffusion weighted images. The posterior fossa and brainstem are unremarkable. Normal major vessel vascular flow voids are seen. IMPRESSION: Age-appropriate atrophy and moderate chronic ischemic/gliotic changes. No acute intracranial abnormality. Reviewed, Interpreted and Dictated by Volodymyr Ruiz III, MD Transcribed by Nader Hobson Authenticated by Volodymyr Ruiz III, MD on 02/23/2022 12:26:55 PM [facility]
== END ==
PROVIDERS: PCP Internal Medicine Adolescent Medicine; Visit Provider Internal Medicine Adolescent Medicine
DX: R51.9 Headache, unspecified (principal); Z85.118 Personal history of other malignant neoplasm of bronchus and lung
CPT/HCPCS: 70551

== ENCOUNTER 2022-02-24 15:37 | Observation (INO) | payer MEDICARE, SELFPAY ==
[2022-02-24] VITALS (9 sets, daily range): BP systolic 80–137; BP diastolic 51–72; PULSE 67–99; RESP 18–22; TEMP 36.4–36.6; O2SAT 97–98; BMI 25.8; BMI 22.7
[2022-02-24 13:59] LABS: Basophils # 0.1 K/mm3 (0-0.2); Basophils % 1.4 % (0.1-2.0); Eosinophils # 0.1 K/mm3 (0.0-0.4); Eosinophils % 0.9 % (0.1-12.0); Hematocrit 35.7 % (42.0-52.0); Hemoglobin 11.6 g/dL (14.1-18.0); Lymphocytes # 1.5 K/mm3 (0.7-4.5); Lymphocytes % 20.6 % (10-50); Mean Corpuscular HGB Conc 32.5 g/dL (31.8-35.4); Mean Corpuscular Hemoglobin 24.5 pg (27.0-31.2); Mean Corpuscular Volume 75.3 fl (80-94); Monocytes # 0.4 K/mm3 (0.1-1.0); Monocytes % 5.7 % (1.7-9.3); Neutrophils # 5.1 K/mm3 (1.8-7.8); Neutrophils % 71.5 % (37.0-80.0); Platelet Count 316 K/mm3 (142-424); Red Blood Count 4.74 M/mm3 (4.60-6.20); Red Cell Distribution Width 18.8 % (11.5-17.5); White Blood Count 7.1 K/mm3 (4.8-10.8)
[2022-02-24 14:07] LABS: Chloride 93 mmol/L (98-107); Potassium 4.2 mmoL/L (3.5-5.1); Sodium 126 mmol/L (136-145)
[2022-02-24 14:09] LABS: Alanine Aminotransferase 12 U/L (12-78); Aspartate Amino Transferase 21 U/L (17-59); Blood Urea Nitrogen 11 mg/dl (9-20); Creatinine Clearance Estimated 72 mL/min (50-200); Estimated Glomerular Filt Rate 82 ml/min (>60); GFR (African American) 100 ML/MIN (>60)
[2022-02-24 14:10] LABS: Albumin/Globulin Ratio 1.4 (1.1-1.8); Alkaline Phosphatase 92 U/L (38-126); Anion Gap 13.2 mEq/L (5-15); Bilirubin,Total 1.1 mg/dl (0.2-1.3); Calcium 9.3 mg/dl (8.4-10.2); Carbon Dioxide 24 mmol/L (22.0-30.0); Globulin 2.8 g/dL (1.3-3.2); Glucose 111 mg/dl (74-100); Total Protein,Serum 6.8 g/dl (6.3-8.2)
--- NOTE | 2022-02-24 15:29 | PC.NURSE ---
Provider Xena Antony called to check on pt condition. pt reports feeling maybe a little better-ivf's still infusing therefore orthostatics have not been performed yet. VSS on admission and during infusion. Xena states that she is going to admit pt overnight to inpt unit for cont ivf's based on lab results. pt/ informed of this and agreeable to poc.
--- NOTE | 2022-02-24 16:13 | PC.NURSE ---
Pt arrived to the floor at this time
--- NOTE | 2022-02-24 16:23 | XR_ITS ---
PROCEDURE INFORMATION: Exam: XR Chest Exam date and time: 02/24/2022 4:40 PM Age: 76 years old Clinical indication: Smoker's cough; Prior surgery; Surgery type: Smoker, h/o covid and lt lung cancer; Patient HX: Cough, h/o covid, h/o lt lung cancer, smoker TECHNIQUE: Imaging protocol: XR of the chest. Views: 1 view. COMPARISON: CT CHEST WO CON 01/29/2022 8:01 PM FINDINGS: Lungs: Bronchial wall thickening in the right hilum may represent inflammation or infection of the bronchus. . Bibasilar atelectasis Pleural spaces: Unremarkable. No pleural effusion. No pneumothorax. Heart/Mediastinum: Unremarkable. No cardiomegaly. Bones/joints: Unremarkable. IMPRESSION: Bronchial wall thickening in the right hilum may represent inflammation or infection of the bronchus. .
--- NOTE | 2022-02-24 16:55 | HMH.HP ---
*Admission Date: 02/24/22 <AntonyXena 02/24/22 17:03> *Chief complaint: weakness, dizziness, weight loss <AntonyXena 02/24/22 17:03> *History of present illness: Mr. 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 He was found to be orthostatic with unsteady gait. SBP 110 laying, 92 sitting, 68 standing. Weight down 10 pounds in the last month. He was sent to [facility] outpatient infusion for labs and IVF's. Labs revealed NA 126. He was admitted for IVF's and further evaluation. Of note- patient's gabapentin was increased prior to onset of weakness/dizziness which may also be contributing. Scheduled for bronch with biopsy later this month. MRI head yesterday was negative for metastatic disease. <Xena Antony 02/24/22 17:03> [facility] History I have reviewed the patient's past medical history: Yes <Xena Antony 02/24/22 17:14> Medical History: Reports:: Cancer (lung), Chronic Obstructive Pulmonary Disease (COPD), Hyperlipidemia, Hypertension, Pulmonary Embolism Denies:: Diabetes Mellitus Type 1, Diabetes Mellitus Type 2, Internal Pacemaker, MRSA, Seizures <Xena Antony 02/24/22 17:03> *Have you ever received a pneumonia vaccine?: Yes <Xena Antony 02/24/22 17:03> *Have you received a flu vaccine this season?: Yes <Xena Antony 02/24/22 17:03> Other Medical History: Reports: Arthritis. Denies: Blood Transfusion Reaction <Xena Antony 02/24/22 17:03> Laterality Cases: Left: Other <Xena Antony 02/24/22 17:03> Other Surgeries: Yes: Cancer Surgery, Cardiac Catheterization, Colonoscopy, EGD, Other. No: Pacemaker <Xena Antony 02/24/22 17:03> Amputation: No <Xena Antony 02/24/22 17:03> Fractures: No <Xena Antony 02/24/22 17:03> - *Social History Last grade of school completed: High school graduate <Xena Antony 02/24/22 17:03> Smoking Status: Current every day smoker <Xena Antony 02/24/22 17:03> Tobacco Type: cigarettes <eXna Antony 02/24/22 17:03> # Packs/Day (cigarettes): 1 <Xena Antony 02/24/22 17:03> Alcohol Intake: never <Xena Antony 02/24/22 17:03> Substance Use Type: denies use <Xena Antony 02/24/22 17:03> *Occupational Status:: retired <Xena Antony 02/24/22 17:03> Housing: house <Xena Antony 02/24/22 17:03> Household Members: spouse <Xena Antony 02/24/22 17:03> *Travel in the last 8 weeks: Inside the [place] <Xena Antony 02/24/22 17:03> Family Hx:: Cancer <Xena Antony 02/24/22 17:03> Review of Systems - Review of Systems Review of systems:: pertinent systems reviewed and negative unless documented below <Xena Antony 02/24/22 17:14> - Constitutional Reports lack of energy, Reports malaise, Reports weakness, Reports weight loss <Xena Antony 02/24/22 17:14> - *Respiratory Reports cough, Reports shortness of breath <Xena Antony 02/24/22 17:14> - *Neurologic Reports unsteadiness, Reports dizziness <Xena Antony 02/24/22 17:14> Meds Home Medications Medication Instructions Recorded Confirmed Type Aspirin [Aspirin 81mg EC Tab] 81 mg PO DAILY 04/13/18 02/24/22 History Omeprazole Magnesium [Prilosec Otc 20 mg PO DAILY 04/13/18 02/24/22 History 20mg Tab] Apixaban [Eliquis] 5 mg PO DAILY 05/18/20 02/24/22 History multivitamin 1 tab PO DAILY 01/20/21 02/24/22 History atorvastatin 20 mg tablet 20 mg PO DAILY tab 01/25/21 02/24/22 History budesonide 160 mcg-glycopyr 9 2 inh INHALATION ONCE g 01/25/21 02/24/22 History mcg-formot 4.8 mcg/actuation HFA inhaler metoprolol succinate 25 mg 25 mg PO DAILY tab 01/25/21 02/24/22 History tablet,extended release 24 hr furosemide 20 mg tablet 20 mg PO Q OTHER DAY PRN #30 tab
[2022-02-24 19:53] LABS: Coronavirus 19, PCR Not Detected (NotDetected); Influenza A, PCR Not Detected (NotDetected); Influenza B, PCR Not Detected (NotDetected)
[2022-02-25 02:20] VITALS: PULSE 71; PULSE 72
[2022-02-25 03:32] VITALS: BP 126/68; PULSE 65; RESP 18; TEMP 36.7; O2SAT 96
--- NOTE | 2022-02-25 03:51 | PC.NURSE ---
No acute changes. Pt a + o x4. Pt has not voiced any concerns to staff thus far. at bedside. Call light within reach.
[2022-02-25 05:53] VITALS: BMI 26.6
[2022-02-25 08:00] VITALS: BP 127/56; PULSE 72; RESP 22; TEMP 36.4; O2SAT 98
[2022-02-25 08:19] LABS: Basophils # 0.1 K/mm3 (0-0.2); Basophils % 0.9 % (0.1-2.0); Eosinophils # 0.1 K/mm3 (0.0-0.4); Eosinophils % 1.2 % (0.1-12.0); Hemoglobin 11.3 g/dL (14.1-18.0); Lymphocytes # 1.3 K/mm3 (0.7-4.5); Lymphocytes % 21.1 % (10-50); Mean Corpuscular Volume 75.8 fl (80-94); Mean Platelet Volume 8.8 fl (7.4-10.4); Monocytes # 0.4 K/mm3 (0.1-1.0); Monocytes % 6.3 % (1.7-9.3); Neutrophils # 4.3 K/mm3 (1.8-7.8); Neutrophils % 70.6 % (37.0-80.0); Platelet Count 294 K/mm3 (142-424); Red Blood Count 4.49 M/mm3 (4.60-6.20); Red Cell Distribution Width 18.9 % (11.5-17.5); White Blood Count 6.1 K/mm3 (4.8-10.8)
[2022-02-25 08:27] LABS: Anion Gap 11.6 mEq/L (5-15); Blood Urea Nitrogen 8 mg/dl (9-20); Calcium 8.8 mg/dl (8.4-10.2); Carbon Dioxide 24 mmol/L (22.0-30.0); Chloride 98 mmol/L (98-107); Creatinine Clearance Estimated 74 mL/min (50-200); Estimated Glomerular Filt Rate 94 ml/min (>60); GFR (African American) 114 ML/MIN (>60); Glucose 103 mg/dl (74-100); Potassium 3.6 mmoL/L (3.5-5.1); Sodium 130 mmol/L (136-145)
--- NOTE | 2022-02-25 09:06 | HMH.PHAVTE ---
[facility] Pharmacy VTE Monitoring - Patient Demographics Admission date: 02/24/22 Report Date: 02/25/22 Time: 09:06 Allergies/Adverse Reactions: Patient Allergies Iodinated Contrast Media [Iodinated Contrast Media - Oral and] Allergy (Intermediate, Verified 02/16/22 13:13) Hives prednisone Adverse Reaction (Intermediate, Verified 02/16/22 13:13) Unknown allergy reaction Height: 1.75 m Weight: 81.647 kg Patient Problems: Current Active Problems Hyponatremia (Acute) Lung mass (Acute) Idiopathic neuropathy (Chronic) HLD (hyperlipidemia) (Chronic) CAD (coronary artery disease) (Chronic) S/P lobectomy of lung (Chronic) COPD (chronic obstructive pulmonary disease) (Chronic) Tobacco use (Chronic) Hx of cancer of lung (Chronic) Hx of pulmonary embolus (Chronic) Hx of deep venous thrombosis (Chronic) - VTE Risk Labs: VTE Related Lab Results Hgb 11.3 g/dL (14.1-18.0) L 02/25/22 07:01 Hct 34.0 % (42.0-52.0) L 02/25/22 07:01 Plt Count 294 K/mm3 (142-424) 02/25/22 07:01 BUN 8 mg/dl (9-20) L D 02/25/22 07:01 Creatinine 0.80 mg/dl (0.66-1.25) 02/25/22 07:01 Estimated Creat Clear 74 mL/min (50-200) 02/25/22 07:01 VTE Risk Level: Low Risk - Prophylaxis VTE Prophylaxis Ordered?: Yes Types of VTE Prophylaxis: TEDS Knee High, Pharmacological Location of Applied Device: Bilateral Lower Extremeties Pharmacologic Type: Other (ELIQUIS)
[2022-02-25 09:31] VITALS: BP 106/65; BP 123/68; BP 142/71
--- NOTE | 2022-02-25 11:13 | HMH.DCSUM ---
General - General Admission date:: 02/24/22 Discharge date: 02/25/22 HPI HPI: Mr. 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 He was found to be orthostatic with unsteady gait. SBP 110 laying, 92 sitting, 68 standing. Weight down 10 pounds in the last month. He was sent to [facility] outpatient infusion for labs and IVF's. Labs revealed NA 126. He was admitted for IVF's and further evaluation. Of note- patient's gabapentin was increased prior to onset of weakness/dizziness which may also be contributing. Scheduled for bronch with biopsy later this month. MRI head yesterday was negative for metastatic disease. Hospital Course Hospital Course: 76-year-old male admitted for weakness and hyponatremia. Concern for relation to lung cancer recurrence versus poor dietary intake versus medication side effect. Responded well to IV resuscitation. Sodium improved to this morning. Treated with additional liter of IV fluids this morning. Tolerating good p.o. intake. Found to have significant orthostatic hypotension on exam/vitals yesterday at time of admission. Repeat orthostatics this morning on day of discharge improved, still has some mild variability but not as severe as yesterday. Holding blood pressure meds at this time. Given improvement clinically, normal labs, patient is medically stable for discharge home. Blood close follow-up in the outpatient setting to reevaluate vitals and resumption of home medications. Examined on day of discharge. at bedside. Patient and comfortable plan. Objective Vital signs: Temp Pulse Resp BP Pulse Ox 97.5 F L 72 22 142/71 H 98 02/25/22 08:00 02/25/22 08:00 02/25/22 08:00 02/25/22 09:31 02/25/22 08:00 Narrative: - *Routine HEENT Exam Head: Present: normocephalic Eye: Present: PERRL ENT: Present: mucous membranes dry - *Routine Neck Exam Present: supple - *Routine Respiratory Exam Present: CTA bilaterally, diminished air movement - *Routine Cardiovascular Exam Present: RRR, Normal S1, Normal S2 - *Routine Abdominal Exam Present: soft, normoactive bowel sounds - *Routine Extremities Exam Present: trace edema - *Routine Skin Exam Present: intact - *Routine Neurological Exam Present: alert, oriented X3 no acute distress Comments: Sitting in bedside chair on exam this morning. Results Labs on day of discharge: Labs from last 24 hours 02/25/22 02/25/22 02/24/22 07:01 07:01 19:47 WBC 6.1 RBC 4.49 L Hgb 11.3 L Hct 34.0 L MCV 75.8 L MCH 25.0 L MCHC 33.0 RDW 18.9 H Plt Count 294 MPV 8.8 Neut % (Auto) 70.6 Lymph % (Auto) 21.1 [place] % (Auto) 6.3 Eos % (Auto) 1.2 Baso % (Auto) 0.9 Neut # (Auto) 4.3 Lymph # (Auto) 1.3 [place] # (Auto) 0.4 Eos # (Auto) 0.1 Baso # (Auto) 0.1 Sodium 130 L Potassium 3.6 Chloride 98 Carbon Dioxide 24 Anion Gap 11.6 BUN 8 L D Creatinine 0.80 Estimated Creat Clear 74 Estimated GFR 94 Est GFR ( Amer) 114 Glucose 103 H Calcium 8.8 Total Bilirubin AST ALT Alkaline Phosphatase Total Protein Albumin Globulin Albumin/Globulin Ratio SARS-CoV-2 (PCR) Not detected Influenza A Untype (PCR) Not detected Influenza Type B (PCR) Not detected 02/24/22 02/24/22 13:39 13:39 WBC 7.1 RBC 4.74 Hgb 11.6 L Hct 35.7 L MCV 75.3 L MCH 24.5 L MCHC 32.5 RDW 18.8 H Plt Count 316 MPV 9.0 Neut % (Auto) 71.5 Lymph % (Auto) 20.6 [place] % (Auto) 5.7 Eos % (Auto) 0.9 Baso % (Auto) 1.4 Neut # (Auto) 5.1 Lymph # (Auto) 1
--- NOTE | 2022-02-27 15:59 | CARE MANAGER ---
Spoke with patient's in post-discharge phone interview and she states that patient is good and has no concerns at this time, he has follow-up appointment and has no needs at this time.
== END 2022-02-25 14:05 | disposition home or self-care (01) ==
LOC: 2ND 15:38
PROVIDERS: Admitting Provider Internal Medicine Adolescent Medicine; PCP Nurse Practitioner Family; Visit Provider Internal Medicine Adolescent Medicine
DX: E86.0 Dehydration (principal); E87.1 Hypo-osmolality and hyponatremia; R91.8 Other nonspecific abnormal finding of lung field; Z79.01 Long term (current) use of anticoagulants; F17.210 Nicotine dependence, cigarettes, uncomplicated; G60.9 Hereditary and idiopathic neuropathy, unspecified; E78.5 Hyperlipidemia, unspecified; I10 Essential (primary) hypertension; I25.10 Atherosclerotic heart disease of native coronary artery without angina pectoris; Z90.2 Acquired absence of lung [part of]; Z85.118 Personal history of other malignant neoplasm of bronchus and lung; Z86.711 Personal history of pulmonary embolism; Z86.718 Personal history of other venous thrombosis and embolism; Z20.822 Contact with and (suspected) exposure to COVID-19; Z79.899 Other long term (current) drug therapy
CPT/HCPCS: G0378; G0379; 36415; 71045; 80048; 80053; 85025; 94640; 96360; 96361; C9803; U0003; U0005

== ENCOUNTER → 2022-03-03 10:01 | Outpatient (CLI) | payer MEDICARE, SELFPAY | PROVIDERS: Visit Provider Internal Medicine Pulmonary Disease | DX: Z01.812 Encounter for preprocedural laboratory examination (principal); Z11.52 Encounter for screening for COVID-19; R91.1 Solitary pulmonary nodule | CPT/HCPCS: C9803; U0003; U0005 ==

== ENCOUNTER 2022-03-06 08:36 | Day surgery (SDC) | payer MEDICARE, SELFPAY ==
[2022-03-02 11:28] VITALS: BMI 26.4
[2022-03-06] VITALS (12 sets, daily range): BP systolic 110–182; BP diastolic 65–87; PULSE 80–117; RESP 14–18; TEMP 36.2–43; O2SAT 89–100
--- NOTE | 2022-03-06 12:41 | HMH.ANESCL ---
[facility] Anesthesia Checklist - Structural Data Admitted From: Home Planned Operative Procedure/s: bronchoscopy Consent for Planned Operative Procedure(s) Verified: Yes - Additional verifications Anesthesia Reactions: Yes (drowsiness) Hx Blood Transfusions: No Blood Transfusion Reaction: No - Airway Assessment C-Spine Mobility Assessed: Yes TMJ Mobility Assessed: Yes Dentition: Poor Dentition - Neurological Assessment Level of Consciousness: Awake, Alert, Appropriate - Anesthesia Plan Anesthesia Risk discussed: Yes Anesthesia Plan: Verified ASA Class: III Anesthesia Type: General [facility] History I have reviewed the patient's past medical history: Yes Medical History: Reports:: Cancer (LUNG), Chronic Obstructive Pulmonary Disease (COPD), Hyperlipidemia, Hypertension, Pulmonary Embolism Denies:: Diabetes Mellitus Type 1, Diabetes Mellitus Type 2, Internal Pacemaker, MRSA, Seizures *Have you ever received a pneumonia vaccine?: Yes *Have you received a flu vaccine this season?: Yes Other Medical History: Reports: Arthritis. Denies: Blood Transfusion Reaction Anesthesia experience/problems:: none Laterality Cases: Left: Other Other Surgeries: Yes: Cancer Surgery, Cardiac Catheterization, Colonoscopy, EGD, Other (partial lobectomy 2019). No: Pacemaker Amputation: No Fractures: No - *Social History Last grade of school completed: High school graduate Smoking Status: Current every day smoker Tobacco Type: cigarettes # Packs/Day (cigarettes): 1 Alcohol Intake: never Substance Use Type: denies use *Occupational Status:: retired Housing: house Household Members: spouse *Travel in the last 8 weeks: None Family Hx:: Cancer
--- NOTE | 2022-03-06 12:42 | HMH.ANESI ---
[facility] Anesthesia Record Part I Intake, IV Amount: 1,000 Estimated blood loss (mL): 0 Urine output (mL): 0 Blood Pressure: 162/87 SaO2: 92 Pulse Rate: 105 Respiratory Rate: 14 Temperature: 97.1 F Patient is:: Awake, Stable Stable to PACU at:: 12:40
--- NOTE | 2022-03-06 13:05 | PC.NURSE ---
suction at bed. secretions are thick and bloody. Copious amounts of secretions being suctioned. Pt coughing almost constantly. Pt reports no pain but unable to breathe deeply without coughing. Pt on a humidified boateng mask at 5L. VSS. Dr Reyes's office called and left message requesting MD to see pt. No orders at this time.
--- NOTE | 2022-03-06 13:24 | PC.NURSE ---
Dr Reyes at bedside. Liam ordered. No further orders.
--- NOTE | 2022-03-06 13:56 | HMH.ANESII ---
[facility] Anesthesia Record Part II Discharge Time: 13:20 Destination: Surgical Day Care (OP Surgery) PACU nurse assessment reviewed?: Yes Patient Condition:: Good Anesthesia Complications:: None Swallowing reflex intact?: Yes Cyanosis?: No Blood Pressure: 131/76 Pulse Rate: 95 Temperature: 97.3 F Mental Status: Alert & Oriented Pain level:: 0 Nausea and/or vomitting:: None Intake, IV Amount: 0
--- NOTE | 2022-03-06 14:40 | HMH.BRONCH ---
- Procedure: Date: 03/06/22 Patient Date of :: 1945 Procedure Performed:: Bronchoscopy with endobronchial ultrasound guided fine-needle aspiration Indications:: Lung nodule and lymphadenopathy Performing Provider:: Karey Reyes MD Referring Provider:: Dr. Brooks Sedation:: General anesthesia Procedure:: Endobronchial ultrasound-guided fine-needle aspiration: This patient and his most recent CAT scan showed left lower lobe spiculated nodule followed by a PET scan that did not show any uptake of this concerning left lower lobe nodule however showed increased uptake of the left upper lobe pulmonary nodule that has been relatively stable from prior along with increasing hilar lymphadenopathy for which patient was scheduled for EBUS FNA. EBUS bronchoscopy was advanced the ET tube and lymph node surveillance were performed, patient noted lymphadenopathy stations 10 R and 10 L. FNA samples performed both the stations. Pathologist at bedside, reported adequate samples of lymphocytes. No evidence of malignancy noted on pulm examination. We will follow with the final results. No immediate complications after the procedure. Will follow the patient in 7 days postprocedure. Please schedule a clinic appointment prior to discharge today. Findings:: Please see the procedure note Recommendations:: Please see the procedure note Complications:: None Estimated blood obtained (mL): 10
== END 2022-03-06 14:00 | disposition home or self-care (01) ==
LOC: OR 08:38
PROVIDERS: PCP Nurse Practitioner Family; Visit Provider Internal Medicine Pulmonary Disease
DX: R59.0 Localized enlarged lymph nodes (principal); C34.12 Malignant neoplasm of upper lobe, left bronchus or lung; R06.00 Dyspnea, unspecified; F17.210 Nicotine dependence, cigarettes, uncomplicated; I10 Essential (primary) hypertension; Z79.899 Other long term (current) drug therapy
CPT/HCPCS: 31652; 88172; 88173; 88305; J2405

== ENCOUNTER → 2022-03-10 10:48 | Outpatient (CLI) | payer MEDICARE, SELFPAY ==
--- NOTE | 2022-03-10 10:52 | XR_ITS ---
FINAL REPORT CLINICAL HISTORY: sob--pt had bronchoscopy this week-- hemoptysis COMPARISON: 02/24/2022 FINDINGS: PA and lateral views of the chest were obtained. The cardiac and mediastinal silhouettes are within normal limits. There is a new left pneumothorax with 6.3 cm of pleural separation at the base. The right lung is clear. No pleural effusion is identified. No acute osseous abnormality is identified. IMPRESSION: New left pneumothorax. Paulina Davis, computer operations supervisor was notified of findings at time of dictation. Reviewed, Interpreted and Dictated by Bia Abraham MD Transcribed by Cherelle Agudelo Authenticated by Bia Abraham MD on 03/10/2022 11:36:00 AM [facility]
== END ==
PROVIDERS: PCP Internal Medicine Adolescent Medicine; Visit Provider Internal Medicine Pulmonary Disease
DX: R06.02 Shortness of breath (principal)
CPT/HCPCS: 71046

== ENCOUNTER 2022-03-10 12:40 | Inpatient (IN) | payer MEDICARE, SELFPAY ==
[2022-03-10] VITALS (14 sets, daily range): BP systolic 134–164; BP diastolic 72–105; PULSE 67–89; RESP 17–28; TEMP 36.5–36.9; O2SAT 95–99; BMI 26.4; BMI 26.1
--- NOTE | 2022-03-10 13:08 | HMH.EDGENADL ---
ED Disposition Clinical Impression: Pneumothorax Disposition: Admitted As Inpatient Condition on Discharge: Good - Critical Care Critical Care Time: No Attestation: On 03/10/22, the high probability of a clinically significant, sudden or life threatening deterioration of the following system(s) required my full and direct attention, intervention and personal management. The time I documented below is in addition to time spent performing reported procedures but includes the following listed in this critical care notation. Medical Decision Making - Randy Inquiry Pt receiving controlled substance: Yes Randy was queried for this patient: No Risks and benefits of using a controlled substance: were not discussed with pt by me Vital Signs: 03/10/22 12:41 03/10/22 13:31 03/10/22 14:01 Temperature 97.7 F Temperature Source Oral Pulse Rate 77 74 Pulse Rate [Left Radial] 76 Respiratory Rate 20 21 18 Blood Pressure 146/87 H 150/79 H Blood Pressure [Right Arm] 147/89 H Blood Pressure Mean 105 114 Blood Pressure Mean [Right Arm] 108 Blood Pressure Source Blood Pressure Source [Right Arm] Automatic Cuff Blood Pressure Position Blood Pressure Position [Right Arm] Sitting 02 Sat by Pulse Oximetry 95 99 99 Oxygen Delivery Method Room Air Nasal Cannula Oxygen Flow Rate (LPM) 2 03/10/22 14:30 03/10/22 15:00 03/10/22 15:30 Temperature Temperature Source Pulse Rate 80 74 68 Pulse Rate [Left Radial] Respiratory Rate 22 24 24 Blood Pressure 160/105 H 134/83 148/80 H Blood Pressure [Right Arm] Blood Pressure Mean 123 108 117 Blood Pressure Mean [Right Arm] Blood Pressure Source Blood Pressure Source [Right Arm] Blood Pressure Position Blood Pressure Position [Right Arm] 02 Sat by Pulse Oximetry 97 98 98 Oxygen Delivery Method Nasal Cannula Nasal Cannula Oxygen Flow Rate (LPM) 2 2 03/10/22 16:00 03/10/22 16:23 03/10/22 16:27 Temperature Temperature Source Pulse Rate 71 74 76 Pulse Rate [Left Radial] Respiratory Rate 24 28 H 25 H Blood Pressure 142/75 H 164/84 H 143/79 H Blood Pressure [Right Arm] Blood Pressure Mean 109 114 118 Blood Pressure Mean [Right Arm] Blood Pressure Source Blood Pressure Source [Right Arm] Blood Pressure Position Blood Pressure Position [Right Arm] 02 Sat by Pulse Oximetry 97 96 97 Oxygen Delivery Method Oxygen Flow Rate (LPM) 03/10/22 16:30 03/10/22 17:00 03/10/22 17:30 Temperature Temperature Source Pulse Rate 69 67 70 Pulse Rate [Left Radial] Respiratory Rate 25 H 17 18 Blood Pressure 143/80 H 152/87 H 139/74 Blood Pressure [Right Arm] Blood Pressure Mean 111 116 104 Blood Pressure Mean [Right Arm] Blood Pressure Source Blood Pressure Source [Right Arm] Blood Pressure Position Blood Pressure Position [Right Arm] 02 Sat by Pulse Oximetry 97 98 97 Oxygen Delivery Method Nasal Cannula Nasal Cannula Oxygen Flow Rate (LPM) 2 2 03/10/22 20:00 Temperature 98.5 F Temperature Source Oral Pulse Rate 70 Pulse Rate [Left Radial] 83 Respiratory Rate 20 Blood Pressure 139/74 Blood Pressure [Right Arm] 160/72 H Blood Pressure Mean Blood Pressure Mean [Right Arm] 101 Blood Pressure Source Automatic Cuff Blood Pressure Source [Right Arm] Automatic Cuff Blood Pressure Position Sitting Blood Pressure Position [Right Arm] 02 Sat by Pulse Oximetry 95 Oxygen Delivery Method Nasal Cannula Oxygen Flow Rate (LPM) 2 - Lab Data Lab Results 03/10/22 13:05: WBC 7.4, RBC 4.47 L, Hgb 11.1 L, Hct 33.7 L, MCV 75.3 L, MCH 24.9 L, MCHC 33.1, RDW 17.8 H, Plt Count 285, MPV 8.0, Neut % (Auto) 52.4, Lymph % (Auto) 40.1, [place] % (Auto) 5.9, Eos % (Auto) 1.1, Baso % (Auto) 0.4, Neut # (Auto) 3.9, Lymph # (Auto) 3.0, [place] # (Auto) 0.4, Eos # (Auto) 0.1, Baso # (Auto) 0.0 03/10/22 13:05: Sodium 132 L, Potassium 3.8, Chloride 99, Carbon Dioxide 28, Anion Gap 8.8, BUN 11, Creatinine 0.
--- NOTE | 2022-03-10 13:10 | XR_ITS ---
PROCEDURE INFORMATION: Exam: XR Chest Exam date and time: 03/10/2022 4:23 PM Age: 76 years old Clinical indication: Device placement; Chest tube; Additional info: Left sided ptx TECHNIQUE: Imaging protocol: XR of the chest. Views: 1 view. COMPARISON: CR XR CHEST 2V 03/10/2022 11:03 AM FINDINGS: Tubes, catheters and devices: Left basilar pneumothorax is again noted and a left-sided chest tube is in place. Surgical clips are present overlying the left hemithorax. Lungs: No evidence of pneumonia within the right lung. Compressive atelectatic changes noted within the left lung base. Pleural spaces: Pneumothorax has slightly decreased when compared to the prior study. Heart/Mediastinum: Unremarkable. No cardiomegaly. Bones/joints: Unremarkable. IMPRESSION: 1. Left basilar pneumothorax is again noted and a left-sided chest tube is in place. Pneumothorax has slightly decreased when compared to the prior study. 2. Compressive atelectatic changes noted within the left lung base.
[2022-03-10 13:17] LABS: Basophils % 0.4 % (0.1-2.0); Eosinophils # 0.1 K/mm3 (0.0-0.4); Eosinophils % 1.1 % (0.1-12.0); Hematocrit 33.7 % (42.0-52.0); Hemoglobin 11.1 g/dL (14.1-18.0); Lymphocytes % 40.1 % (10-50); Mean Corpuscular HGB Conc 33.1 g/dL (31.8-35.4); Mean Corpuscular Hemoglobin 24.9 pg (27.0-31.2); Mean Corpuscular Volume 75.3 fl (80-94); Monocytes # 0.4 K/mm3 (0.1-1.0); Monocytes % 5.9 % (1.7-9.3); Neutrophils # 3.9 K/mm3 (1.8-7.8); Neutrophils % 52.4 % (37.0-80.0); Platelet Count 285 K/mm3 (142-424); Red Blood Count 4.47 M/mm3 (4.60-6.20); Red Cell Distribution Width 17.8 % (11.5-17.5); White Blood Count 7.4 K/mm3 (4.8-10.8)
[2022-03-10 13:21] LABS: Chloride 99 mmol/L (98-107); Potassium 3.8 mmoL/L (3.5-5.1); Sodium 132 mmol/L (136-145)
[2022-03-10 13:23] LABS: Blood Urea Nitrogen 11 mg/dl (9-20); Creatinine Clearance Estimated 71 mL/min (50-200); Estimated Glomerular Filt Rate 94 ml/min (>60); GFR (African American) 114 ML/MIN (>60)
[2022-03-10 13:24] LABS: Alanine Aminotransferase 19 U/L (12-78); Albumin Level 3.8 g/dl (3.5-5.0); Albumin/Globulin Ratio 1.4 (1.1-1.8); Alkaline Phosphatase 82 U/L (38-126); Anion Gap 8.8 mEq/L (5-15); Aspartate Amino Transferase 20 U/L (17-59); Bilirubin,Total 0.9 mg/dl (0.2-1.3); Carbon Dioxide 28 mmol/L (22.0-30.0); Globulin 2.8 g/dL (1.3-3.2); Glucose 117 mg/dl (74-100); Total Protein,Serum 6.6 g/dl (6.3-8.2)
[2022-03-10 13:54] LABS: Coronavirus 19, PCR Not Detected (NotDetected); Influenza A, PCR Not Detected (NotDetected); Influenza B, PCR Not Detected (NotDetected)
--- NOTE | 2022-03-10 14:37 | PC.NURSE ---
Dr James in with pt.
--- NOTE | 2022-03-10 15:26 | PC.NURSE ---
Patient's family members have been updated on plan of care.
--- NOTE | 2022-03-10 16:30 | PC.NURSE ---
chest tube placed, pt tolerated well. VSS t/o placement, see chart for vs
--- NOTE | 2022-03-10 16:57 | PC.NURSE ---
Dr Cecilia sotelo
--- NOTE | 2022-03-10 17:11 | PC.NURSE ---
is on the phone with
--- NOTE | 2022-03-10 17:22 | PC.NURSE ---
Rounded on patient to make sure he was doing okay. Patient stated he did not need anything.
--- NOTE | 2022-03-10 20:18 | PC.NURSE ---
patient up to floor via stretcher @ this time.
[2022-03-11] VITALS: BP 137/71; PULSE 70; RESP 20; TEMP 36.7; O2SAT 91
[2022-03-11 04:00] VITALS: BP 149/79; PULSE 76; RESP 20; TEMP 36.7; O2SAT 91
[2022-03-11 04:59] VITALS: BMI 26.3
--- NOTE | 2022-03-11 06:00 | XR_ITS ---
PROCEDURE INFORMATION: Exam: XR Chest Exam date and time: 03/11/2022 5:41 AM Age: 76 years old Clinical indication: Device placement; Chest tube; Additional info: Left ptx TECHNIQUE: Imaging protocol: XR of the chest. Views: 1 view. COMPARISON: CR XR CHEST PORTABLE 03/10/2022 4:23 PM FINDINGS: Lungs: Surgical clips in the left hemithorax. Pleural spaces: Left-sided chest tube in-situ without evidence of obvious pneumothorax. Left basilar opacity, probably combination of pleural effusion and adjacent atelectasis/consolidation. Heart/Mediastinum: Unremarkable cardiomediastinal silhouette. Bones/joints: No acute osseous findings. IMPRESSION: 1. Left basilar opacity, probably combination of pleural effusion and adjacent atelectasis/consolidation. Recommend imaging follow-up until complete resolution. 2. Left-sided chest tube in-situ without evidence of obvious pneumothorax.
--- NOTE | 2022-03-11 07:43 | P.CONPHA_ITS ---
[facility] VTE Monitoring - Patient Demographics Admission date: 03/10/22 Report Date: 03/11/22 Time: 07:43 Allergies/Adverse Reactions: Patient Allergies Iodinated Contrast Media [Iodinated Contrast Media - Oral and] Allergy (Intermediate, Verified 03/10/22 11:31) Hives prednisone Adverse Reaction (Intermediate, Verified 03/10/22 11:31) Unknown allergy reaction Height: 1.73 m Weight: 78.789 kg Patient Problems: Current Active Problems Pneumothorax (Acute) - VTE Risk Labs: VTE Related Lab Results Hgb 11.1 g/dL (14.1-18.0) L 03/10/22 13:05 Hct 33.7 % (42.0-52.0) L 03/10/22 13:05 Plt Count 285 K/mm3 (142-424) 03/10/22 13:05 BUN 11 mg/dl (9-20) 03/10/22 13:05 Creatinine 0.80 mg/dl (0.66-1.25) 03/10/22 13:05 Estimated Creat Clear 71 mL/min (50-200) 03/10/22 13:05 - Prophylaxis VTE Prophylaxis Ordered?: Yes Types of VTE Prophylaxis: TEDS Knee High Location of Applied Device: Bilateral Lower Extremeties
--- NOTE | 2022-03-11 07:51 | HMH.GSCON ---
*Admission Date: 03/10/22 *Reason for consult:: Left pneumothorax *History of present illness: Is a 76-year-old gentleman seen in consultation Dr. Brooks for evaluation regarding left pneumothorax. Please see HPI from emergency department evaluation below. Pneumothorax catheter placed by emergency department physician. The surgical service has been consulted for management of pneumothorax catheter. Forwarded from emergency department evaluation: General Adult HPI - General Chief complaint: Recheck/Abnormal Lab/Rx Stated complaint: collapsed lung Time Seen by Provider: 03/10/22 13:00 Mode of Arrival: Ambulatory Limitations: No Limitations Description of Symptoms (Recalled from ER Triage Doc. by RN): sent over from mail list librarian for pnuemo in left side. - History of Present Illness HPI narrative: 76-year-old male with a history of COPD, previous lobectomy of the lung, presents for evaluation of pneumothorax. Patient states he was coughing yesterday and noticed a sharp pain after one of his coughing episodes along the left chest. Patient noted up with mail list librarian today in clinic after an EBUS earlier this week and was found to have left sided pneumothorax. Sent to ED from clinic. States he has mild pain along left lateral chest. Has mild dyspnea now. Review of Systems - Constitutional Denies chills - *Cardiovascular Denies shortness of breath (Prior shortness of breath essentially resolved) - *Gastrointestinal Denies abdominal pain [facility] History Medical History: Reports:: Cancer, Chronic Obstructive Pulmonary Disease (COPD), Hyperlipidemia, Hypertension, Pulmonary Embolism Denies:: Diabetes Mellitus Type 1, Diabetes Mellitus Type 2, Internal Pacemaker, MRSA, Seizures *Have you ever received a pneumonia vaccine?: No *Have you received a flu vaccine this season?: Yes Other Medical History: Reports: Arthritis. Denies: Blood Transfusion Reaction Laterality Cases: Left: Other Other Surgeries: Yes: Cancer Surgery, Cardiac Catheterization, Colonoscopy, EGD, Other (partial lobectomy 2019). No: Pacemaker Amputation: No Fractures: No - *Social History Last grade of school completed: High school graduate Smoking Status: Current every day smoker Tobacco Type: cigarettes # Packs/Day (cigarettes): 1 Alcohol Intake: never Substance Use Type: denies use *Occupational Status:: unemployed Housing: house Household Members: spouse *Travel in the last 8 weeks: None Family Hx:: Cancer Meds Home Medications Medication Instructions Recorded Confirmed Type Aspirin [Aspirin 81mg EC Tab] 81 mg PO DAILY 04/13/18 03/10/22 History Omeprazole Magnesium [Prilosec Otc 20 mg PO DAILY 04/13/18 03/10/22 History 20mg Tab] Apixaban [Eliquis] 5 mg PO BID 05/18/20 03/10/22 History multivitamin 1 tab PO DAILY 01/20/21 03/10/22 History atorvastatin 20 mg tablet 20 mg PO DAILY tab 01/25/21 03/10/22 History aluminum hydrox-magnesium carb 95 15 ml PO QPCHS PRN 09/06/21 03/10/22 History mg-358 mg/15 mL oral suspension Phenyleph/Shark Emilia.oil/Mo/Pet 28 gm RC BID PRN #280 gm 10/22/21 03/10/22 Rx [Hemorrhoidal Ointment] polyethylene glycoL 3350 [Miralax 17 gm PO DAILYP PRN #30 packet 10/22/21 03/10/22 Rx 17gm Packet] Metoclopramide HCl [Reglan 10mg 5 mg PO QID 10/24/21 03/10/22 History Tab] Azelastine HCl [Azelastine Nasal 2 spray NS BID PRN 02/01/22 03/10/22 History [place] 30mL Bottle] Lidocaine [Lidocaine 5% ointment 1 applic TP DAILY 02/01/22 03/10/22 History 35gm tube] albuterol sulfate 90 mcg/actuation 2 inh IH Q6H PRN 90 Days #8.5 g 02/16/22 03/10/22 Rx aerosol inhaler gabapentin 300 mg capsule 300 mg PO TID 02/16/22 03/10/22 History ipratropium 0.5 mg-albuterol 3 mg 3 ml IH QID PRN 90 Days #270 ml 02/17/22 03/10/22 Rx (2.5 mg base)/3 mL nebulization
[2022-03-11 08:00] VITALS: BP 123/72; PULSE 79; RESP 19; TEMP 36.4; O2SAT 90
--- NOTE | 2022-03-11 08:31 | HMH.HP ---
*Admission Date: 03/10/22 *Chief complaint: Pneumothorax *History of present illness: 76-year-old male with a history of COPD, recent EBUS earlier this week, lung cancer, presents for evaluation after transfer from pulmonology clinic for left-sided pneumothorax. Patient is on room air, no acute distress, complaining of left lateral chest pain that is tender to palpation on this chest wall area, with self-reported trouble breathing although does not appear in respiratory distress, on room air. Patient placed on supplemental oxygen to assist with resorption of PTX, not for desaturation of spo2. In the ED, patient received labs including CBC, CMP that were not acutely actionable, and a left-sided chest tube was placed after discussing risk, benefits, alternatives with patient and patient was amenable to this procedure. Postprocedural chest x-ray showed a slightly improved left pneumothorax with the chest tube in appropriate place. Patient chest tube placed on -20 mm H2O. He remains HDS on recheck. Spoke with Dr. Rea regarding patient presentation, ED presentation and workup and management. He accepted patient for admission and patient admitted in stable condition. Above note per ER. Patient had EBUS procedure on Sunday, had FNA biopsies of a couple of lymph nodes, interestingly the pathology has been reported as negative. Patient felt better after the procedure and he and his report that Sunday he had a very good day but Sunday during the middle of the day/into the evening had significant coughing, after a paroxysm of coughing has had increasing shortness of air and some left-sided chest pain. Came back to pulmonary clinic on and was found to have a pneumothorax and sent to the ER where catheter was placed. Patient notes that he is breathing better but has had quite a bit of pain in the left chest wall through the night. [facility] History I have reviewed the patient's past medical history: Yes Medical History: Reports:: Cancer, Chronic Obstructive Pulmonary Disease (COPD), Hyperlipidemia, Hypertension, Pulmonary Embolism Denies:: Diabetes Mellitus Type 1, Diabetes Mellitus Type 2, Internal Pacemaker, MRSA, Seizures *Have you ever received a pneumonia vaccine?: No *Have you received a flu vaccine this season?: Yes Other Medical History: Reports: Arthritis. Denies: Blood Transfusion Reaction Laterality Cases: Left: Other Other Surgeries: Yes: Cancer Surgery, Cardiac Catheterization, Colonoscopy, EGD, Other (partial lobectomy 2019). No: Pacemaker Amputation: No Fractures: No - *Social History Last grade of school completed: High school graduate Smoking Status: Current every day smoker Tobacco Type: cigarettes # Packs/Day (cigarettes): 1 Alcohol Intake: never Substance Use Type: denies use *Occupational Status:: unemployed Housing: house Household Members: spouse *Travel in the last 8 weeks: None Family Hx:: Cancer Review of Systems - Review of Systems Review of systems:: pertinent systems reviewed and negative unless documented below Meds Home Medications Medication Instructions Recorded Confirmed Type Aspirin [Aspirin 81mg EC Tab] 81 mg PO DAILY 04/13/18 03/10/22 History Omeprazole Magnesium [Prilosec Otc 20 mg PO DAILY 04/13/18 03/10/22 History 20mg Tab] Apixaban [Eliquis] 5 mg PO BID 05/18/20 03/10/22 History multivitamin 1 tab PO DAILY 01/20/21 03/10/22 History atorvastatin 20 mg tablet 20 mg PO DAILY tab 01/25/21 03/10/22 History aluminum hydrox-magnesium carb 95 15 ml PO QPCHS PRN 09/06/21 03/10/22 History mg-358 mg/15 mL oral suspension Phenyleph/Shark Emilia.oil/Mo/Pet 28 gm RC BID PRN #280 gm 10/22/21 03/10/22 Rx [Hemorrhoidal Ointment] polyethylene glycoL 3350 [Miralax 17 gm PO DAILYP PRN #30 packet 10/22/21 03/10/22 Rx 17gm Packet] Metoclopramide HCl [Reglan 10mg 5 mg PO QID 10/24/21 03/10/22 History Tab] Azelastine HCl [Azelastine Nasal 2 spray NS BID PRN 02/01/22
--- NOTE | 2022-03-11 10:41 | HMH.PHAINT ---
MEDICATION RECONCILIATION COMPLETED ON PATIENT USING EXTERNAL FILL HISTORY FROM PHARMACY AND LIST FROM PULMONOLOGY OFFICE. -LILLIAM WALKERD
[2022-03-11 16:00] VITALS: BP 127/71; PULSE 81; RESP 20; TEMP 36.6; O2SAT 90
--- NOTE | 2022-03-11 17:44 | PC.NURSE ---
VS stable, no drainage noted in atrium. No air leak noted. Site remaines intact and no crepitus found. Patient pain controlled well with toradol and dilaudid. Patient able to tolerate sitting on side of the bed. Patient has a cough, non productive. No other complaints noted.
[2022-03-11 19:54] VITALS: BP 147/75; PULSE 80; RESP 22; TEMP 36.7; O2SAT 95
[2022-03-12] VITALS: BP 152/77; PULSE 91; RESP 20; TEMP 36.6; O2SAT 94
[2022-03-12 02:23] VITALS: PULSE 81; PULSE 83
[2022-03-12 04:00] VITALS: BP 145/60; PULSE 80; RESP 22; TEMP 37.1; O2SAT 95
[2022-03-12 05:00] VITALS: BMI 26.3
--- NOTE | 2022-03-12 06:00 | XR_ITS ---
PROCEDURE INFORMATION: Exam: XR Chest Exam date and time: 03/12/2022 5:51 AM Age: 76 years old Clinical indication: Device placement; Patient HX: PT has chest tube in; Additional info: Ptx TECHNIQUE: Imaging protocol: XR of the chest. Views: 1 view. COMPARISON: CR XR CHEST PORTABLE 03/11/2022 5:41 AM FINDINGS: Lungs: Decreased left basilar opacity. Right basilar linear atelectasis versus airspace disease. Pleural spaces: Left-sided chest tube is again seen, slightly retracted compared to the prior exam without appreciable pneumothorax identified. Heart/Mediastinum: No acute findings or cardiomegaly. Bones/joints: No acute findings. IMPRESSION: 1. Left-sided chest tube noted, slightly retracted compared to prior but no appreciable pneumothorax is seen. 2. Improved left basilar opacity. 3. Right basilar linear atelectasis versus airspace disease.
--- NOTE | 2022-03-12 06:43 | PC.NURSE ---
LATE ENTRY - PT HAS LEFT SIDED CHEST TUBE TO SUCTION (-20 H20). NO AIR LEAK, DRAINAGE, OR CREPITUS NOTED. PT HAD AN EPISODE OF SOA DURING MY SHIFT, DURING THIS TIME PT WAS SPLINTING HIS SIDE WHEN BREATHING IN AND GROANING. O2 93% ON 2 L NC, BP 167/78, HR - 89, RESP - 22. MEDICATED PER DEC FOR PAIN, PAGED RT FOR BREATHING TX. WHEN RT CHECKED PTS O2 - MID 80S ON 2 L NC. RT BUMPED PT UP TO 4 L NC, WITH NOT MUCH IMPROVEMENT. PT MOSTLY MOUTH BREATHES. SO RT SWITCHED PT TO VENTURI MASK 35%. O2 SATS NOW 95-97%. PT STATES HIS PAIN IS RESOLVED AND SOA IS IMPROVED. PT RESTING COMFORTABLY AT THIS TIME. NO OTHER COMPLAINTS OR NEEDS VOICED. CALL LIGHT IN REACH.
[2022-03-12 07:24] LABS: Basophils # 0.1 K/mm3 (0-0.2); Basophils % 1.5 % (0.1-2.0); Eosinophils # 0.1 K/mm3 (0.0-0.4); Eosinophils % 1.1 % (0.1-12.0); Hematocrit 31.6 % (42.0-52.0); Hemoglobin 10.5 g/dL (14.1-18.0); Lymphocytes # 1.2 K/mm3 (0.7-4.5); Mean Corpuscular HGB Conc 33.2 g/dL (31.8-35.4); Mean Corpuscular Hemoglobin 25.2 pg (27.0-31.2); Mean Corpuscular Volume 75.8 fl (80-94); Mean Platelet Volume 8.5 fl (7.4-10.4); Monocytes # 0.3 K/mm3 (0.1-1.0); Monocytes % 5.2 % (1.7-9.3); Neutrophils # 4.3 K/mm3 (1.8-7.8); Neutrophils % 72.2 % (37.0-80.0); Platelet Count 301 K/mm3 (142-424); Red Blood Count 4.17 M/mm3 (4.60-6.20); Red Cell Distribution Width 18.8 % (11.5-17.5)
[2022-03-12 07:26] LABS: Blood Urea Nitrogen 14 mg/dl (9-20); Calcium 8.3 mg/dl (8.4-10.2); Carbon Dioxide 30 mmol/L (22.0-30.0); Chloride 96 mmol/L (98-107); Creatinine Clearance Estimated 71 mL/min (50-200); Estimated Glomerular Filt Rate 94 ml/min (>60); GFR (African American) 114 ML/MIN (>60); Glucose 108 mg/dl (74-100); Sodium 131 mmol/L (136-145)
[2022-03-12 08:00] VITALS: BP 155/71; PULSE 83; RESP 17; TEMP 36.4; O2SAT 96; O2SAT 97
--- NOTE | 2022-03-12 08:23 | P.PN_ITS ---
Subjective Patient reports: no new complaints Progress Note: A&P (1) Pneumothorax Status: Acute Assessment and plan: No definitive pneumothorax noted on morning films. Small pneumothorax catheter has been displaced. The catheter will be removed and follow-up chest x-ray will be ordered (2:15 PM). If recurrent pneumothorax develops a standard thoracostomy tube will be required. (2) Lung mass Status: Acute (3) COPD (chronic obstructive pulmonary disease) Status: Chronic (4) Tobacco use Status: Chronic Exam Vital signs and Labs for Last 24 Hours: Temp Pulse Resp BP Pulse Ox 98.7 F 80 22 145/60 H 95 03/12/22 04:00 03/12/22 04:00 03/12/22 04:00 03/12/22 04:00 03/12/22 04:00 Laboratory Results - last 24 hr 03/12/22 07:00: WBC 6.0, RBC 4.17 L, Hgb 10.5 L, Hct 31.6 L, MCV 75.8 L, MCH 25.2 L, MCHC 33.2, RDW 18.8 H, Plt Count 301, MPV 8.5, Neut % (Auto) 72.2, Lymph % (Auto) 20.0, [place] % (Auto) 5.2, Eos % (Auto) 1.1, Baso % (Auto) 1.5, Neut # (Auto) 4.3, Lymph # (Auto) 1.2, [place] # (Auto) 0.3, Eos # (Auto) 0.1, Baso # (Auto) 0.1 03/12/22 07:00: Sodium 131 L, Potassium 4.0, Chloride 96 L, Carbon Dioxide 30, Anion Gap 9.0, BUN 14 D, Creatinine 0.80, Estimated Creat Clear 71, Estimated GFR 94, Est GFR ( Amer) 114, Glucose 108 H, Calcium 8.3 L I & O for Last 24 hours: Intake & Output 03/09/22 03/10/22 03/11/22 03/12/22 11:59 11:59 11:59 11:59 Intake Total 360 / 360 240 / 240 Output Total 300 / 300 600 / 600 Balance 60 / 60 -360 / -360 Weight 173 lb 11.2 oz 173 lb 11.2 oz - Constitutional no acute distress - *Routine Respiratory Exam Absent: respiratory distress Comments: No swelling or air leak noted
[2022-03-12 12:00] VITALS: BP 130/80; PULSE 98; RESP 19; TEMP 36.7; O2SAT 89
--- NOTE | 2022-03-12 14:15 | XR_ITS ---
PROCEDURE INFORMATION: Exam: XR Chest Exam date and time: 03/12/2022 8:36 AM Age: 76 years old Clinical indication: Shortness of breath and other: Chest tube removed; Additional info: Left ptx; Ptx catheter removed at 8:15am TECHNIQUE: Imaging protocol: XR of the chest. Views: 2 views. COMPARISON: CR XR CHEST PORTABLE 03/12/2022 5:51 AM FINDINGS: Tubes, catheters and devices: previously demonstrated chest tube has been removed. No evidence of pneumothorax. Lungs: Persistent right lower lobe region of subsegmental atelectasis . No focal regions of consolidation. Pleural spaces: See Tubes, catheters and devices finding. Heart/Mediastinum: Unremarkable. No cardiomegaly. Bones/joints: Unremarkable. IMPRESSION: 1. Status post chest tube removal. No evidence of pneumothorax. 2. Persistent right lower lobe region of subsegmental atelectasis.
--- NOTE | 2022-03-12 14:59 | HMH.DCSUM ---
General - General Admission date:: 03/10/22 Discharge date: 03/12/22 HPI HPI: 76-year-old male with a history of COPD, recent EBUS earlier this week, lung cancer, presents for evaluation after transfer from pulmonology clinic for left-sided pneumothorax. Patient is on room air, no acute distress, complaining of left lateral chest pain that is tender to palpation on this chest wall area, with self-reported trouble breathing although does not appear in respiratory distress, on room air. Patient placed on supplemental oxygen to assist with resorption of PTX, not for desaturation of spo2. In the ED, patient received labs including CBC, CMP that were not acutely actionable, and a left-sided chest tube was placed after discussing risk, benefits, alternatives with patient and patient was amenable to this procedure. Postprocedural chest x-ray showed a slightly improved left pneumothorax with the chest tube in appropriate place. Patient chest tube placed on -20 mm H2O. He remains HDS on recheck. Spoke with Dr. Rea regarding patient presentation, ED presentation and workup and management. He accepted patient for admission and patient admitted in stable condition. Above note per ER. Patient had EBUS procedure on Sunday, had FNA biopsies of a couple of lymph nodes, interestingly the pathology has been reported as negative. Patient felt better after the procedure and he and his report that Sunday he had a very good day but Sunday during the middle of the day/into the evening had significant coughing, after a paroxysm of coughing has had increasing shortness of air and some left-sided chest pain. Came back to pulmonary clinic on and was found to have a pneumothorax and sent to the ER where catheter was placed. Patient notes that he is breathing better but has had quite a bit of pain in the left chest wall through the night. Hospital Course Hospital Course: Chest tube was placed in the emergency department as noted. Surgery was consulted, recommended continuing the small pigtail catheter as it had done a nice job with improvement. Patient had quite a bit of pain and was given Dilaudid as well as Toradol which helped. This morning there is no residual pneumothorax, no air leak and pigtail catheter was pulled He had another chest x-ray approximately 30 minutes ago. I reviewed this, the pneumothorax does not appear to have returned. Nursing staff reports that he is breathing well, very minimal pain and is on room air with good oxygen saturations. Plan will be to discharge home. I will see him on March 14 in my office, will order chest x-ray at the hospital on his way to my office and we will discuss at that point going to see CT surgery to reevaluate his lymphadenopathy as well as this pneumothorax. Objective Vital signs: Temp Pulse Resp BP Pulse Ox 98.0 F 98 H 19 130/80 89 L 03/12/22 12:00 03/12/22 12:00 03/12/22 12:00 03/12/22 12:00 03/12/22 12:00 no acute distress - *Routine HEENT Exam Head: Present: normocephalic Eye: Present: EOMI, PERRL ENT: Present: mucous membranes moist - *Routine Neck Exam Present: supple - *Routine Respiratory Exam Present: CTA bilaterally - *Routine Cardiovascular Exam Present: RRR - *Routine Abdominal Exam Present: soft, normoactive bowel sounds. Absent: tenderness - *Routine Extremities Exam Absent: cyanosis, clubbing, edema - *Routine Skin Exam Present: warm. Absent: rash - Detailed Eye Exam Eyelids: Bilateral normal inspection Results Labs on day of discharge: Labs from last 24 hours 03/12/22 03/12/22 07:00 07:00 WBC 6.0 RBC 4.17 L Hgb 10.5 L Hct 31.6 L MCV 75.8 L MCH 25.2 L MCHC 33.2 RDW 18.8 H Plt Count 301 MPV 8.5 Neut % (Auto) 72.2 Lymph % (Auto) 20.0 [place] % (Auto) 5.2 Eos % (Auto) 1.1 Baso % (Auto) 1.5 Neut # (Auto) 4.3 Lymph # (Auto) 1.2 [place] # (Auto) 0.3 Eos # (
[2022-03-12 15:39] VITALS: BP 149/80; PULSE 86; RESP 20; TEMP 36.9; O2SAT 95
--- NOTE | 2022-03-12 15:48 | PC.NURSE ---
pt has been discahrged from the facility. Will go on sunday to get a chest x ray at [facility] and then will see Dr. Brooks in the [place] office @ three. I gave them the order for the chest xray and explained all discahrge education and follow up information to them. Pt denies any pain @ this time. Mild SOA with exertion but saturation is stable on RA @ this time.
--- NOTE | 2022-03-15 14:13 | CARE MANAGER ---
Called and spoke with Mrs. Jara regarding post discharge status. She states that Mr. Jara is doing pretty well, attended a f/u appointment with Dr. Brooks yesterday. No known issues at this time.
== END 2022-03-12 15:50 | disposition home or self-care (01) | DRG 201 ==
LOC: ER 12:46 → 2ND 20:01
PROVIDERS: Admitting Provider Internal Medicine Adolescent Medicine; Emergency Provider Student in an Organized Health Care Education/Training Program; PCP Internal Medicine Adolescent Medicine; Visit Provider Internal Medicine Adolescent Medicine
DX: J93.9 Pneumothorax, unspecified (principal); J44.9 Chronic obstructive pulmonary disease, unspecified; Z86.711 Personal history of pulmonary embolism; E78.5 Hyperlipidemia, unspecified; I10 Essential (primary) hypertension; M19.90 Unspecified osteoarthritis, unspecified site; F17.210 Nicotine dependence, cigarettes, uncomplicated; Z20.822 Contact with and (suspected) exposure to COVID-19; Z85.118 Personal history of other malignant neoplasm of bronchus and lung
CPT/HCPCS: 32551; 36415; 71045; 71046; 80048; 80053; 85025; 86850; 94640; 94760; 96375; 99285; C9803; J2405; U0003; U0005

== ENCOUNTER → 2022-03-24 11:03 | Outpatient (CLI) | payer MEDICARE, SELFPAY ==
--- NOTE | 2022-03-24 11:04 | CA_ITS ---
FINAL REPORT CLINICAL HISTORY: SOB, COPD, lung CA, recent hospital stay with chest tube, smoker, HTN, HLD, hx of PE several years ago. FINDINGS: Color Doppler, duplex Doppler and compression sonography of the bilateral lower extremities was performed. In the right lower extremity, is no evidence of deep venous thrombosis from the level of the groin to the calf. The deep veins are patent and compressible. In the left lower extremity, there is thrombus involving the popliteal vein and peroneal vein. Remaining veins are patent. IMPRESSION: Deep venous thrombosis in the left popliteal and peroneal veins. No evidence of deep venous thrombosis in the right lower extremity. Reviewed, Interpreted and Dictated by Volodymyr Ruiz III, MD Transcribed by Alejandra Holman Authenticated and . [facility]
== END ==
PROVIDERS: PCP Internal Medicine Adolescent Medicine; Visit Provider Internal Medicine Pulmonary Disease
DX: Z86.711 Personal history of pulmonary embolism (principal)
CPT/HCPCS: 93970

== ENCOUNTER 2022-03-27 11:16 | Observation (INO) | payer MEDICARE, SELFPAY ==
[2022-03-27] VITALS (12 sets, daily range): BP systolic 117–150; BP diastolic 66–80; PULSE 86–100; RESP 18–24; TEMP 36.6–36.8; O2SAT 93–99; BMI 25.0; BMI 54.2
--- NOTE | 2022-03-27 11:23 | XR_ITS ---
FINAL REPORT CLINICAL HISTORY: short of breath COMPARISON: March 12, 2022 FINDINGS: The heart size is normal. The mediastinum is normal. There are postoperative changes to the left thorax. Mild scarring in the right lung base is stable. There are no pleural effusions. There is no pneumothorax. There is no osseous abnormality. IMPRESSION: No acute cardiopulmonary process Reviewed, Interpreted and Dictated by Volodymyr Ruiz III, MD Transcribed by Nader Hobson Authenticated and . [facility]
--- NOTE | 2022-03-27 11:23 | ECG_ITS ---
APPROVED REPORT Exam: Resting ECG HR:101 bpm ECG Measurements Heart Rate 101 AXES MI 142 P -35 QRSd 120 QRS 268 QT 344 T 61 QTc 402 Conclusion SINUS TACHYCARDIA RIGHT AXIS DEVIATION [QRS AXIS > 100] RIGHT BUNDLE BRANCH BLOCK [120+ ms QRS DURATION, UPRIGHT V1, 40+ ms S IN I/aVL/V4/V5/V6] ABNORMAL ECG UNCONFIRMED REPORT Electronically signed by : Sravan Brooks MD 03/28/2022 22:18:30
--- NOTE | 2022-03-27 11:30 | HMH.EDGENADL ---
ED Disposition Clinical Impression: Shortness of breath Pulmonary emboli Qualifiers: Pulmonary embolism type: multiple subsegmental (without acute cor pulmonale) Qualified Code(s): I26.94 - Multiple subsegmental pulmonary emboli without acute cor pulmonale Disposition: Admitted As Inpatient Condition on Discharge: Serious Referrals: Sravan Brooks MD [Primary Care Provider] - Time of Disposition: 14:19 - Critical Care Critical Care Time: Yes Attestation: On , the high probability of a clinically significant, sudden or life threatening deterioration of the following system(s) required my full and direct attention, intervention and personal management. The time I documented below is in addition to time spent performing reported procedures but includes the following listed in this critical care notation. Total Critical Care Time: 35 Vital system(s) involved:: Respiratory Failure My critical care processes included: Assessment & monitoring of V/S, Initial and Re-exams, Data Review/Interpretation, Coordinating Care, Medication Orders and management, Documentation Medical Decision Making - Medical Records Medical records reviewed: Yes: I reviewed the patient's medical records. - Randy Inquiry Pt receiving controlled substance: No Vital Signs: 03/27/22 11:16 Temperature 97.8 F Temperature Source Oral Pulse Rate [Right Radial] 99 H Respiratory Rate 22 Blood Pressure [Right Arm] 135/80 Blood Pressure Mean [Right Arm] 98 Blood Pressure Source [Right Arm] Automatic Cuff Blood Pressure Position [Right Arm] Sitting 02 Sat by Pulse Oximetry 97 Oxygen Delivery Method Nasal Cannula Oxygen Flow Rate (LPM) 2 - Lab Data Lab Results 03/27/22 11:23: VBG pH 7.36, VBG pCO2 44.8, VBG pO2 38.6, VBG HCO3 24.5, VBG Total CO2 25.8, VBG O2 Saturation 69.9, VBG Base Excess -1.1 03/27/22 11:30: WBC 7.5, RBC 4.44 L, Hgb 10.9 L, Hct 33.2 L, MCV 74.7 L, MCH 24.6 L, MCHC 32.9, RDW 18.0 H, Plt Count 337, MPV 8.0, Neut % (Auto) 74.0, Lymph % (Auto) 17.5, [place] % (Auto) 6.9, Eos % (Auto) 1.0, Baso % (Auto) 0.7, Neut # (Auto) 5.5, Lymph # (Auto) 1.3, [place] # (Auto) 0.5, Eos # (Auto) 0.1, Baso # (Auto) 0.1 03/27/22 11:30: Sodium 132 L, Potassium 4.4, Chloride 99, Carbon Dioxide 28, Anion Gap 9.4, BUN 13, Creatinine 0.90, Estimated Creat Clear 68, Estimated GFR 82, Est GFR ( Amer) 100, Glucose 119 H, Calcium 8.9, Total Bilirubin 0.5, AST 19, ALT 13, Alkaline Phosphatase 81, Troponin I 0.04 H, Total Protein 6.4, Albumin 3.5, Globulin 2.9, Albumin/Globulin Ratio 1.2 03/27/22 11:30: NT-Pro-B Natriuret Pep 3630 H 03/27/22 11:32: APTT 32.0 03/27/22 14:15: SARS-CoV-2 (PCR) Not detected, Influenza A Untype (PCR) Not detected, Influenza Type B (PCR) Not detected Result diagrams: 03/27/22 11:30 03/27/22 11:30 Orders (Tests/Meds): ED MEDICATIONS Generic Name Dose Route Start Last Admin Trade Name Freq PRN Reason Stop Dose Admin Aspirin 81 mg 03/28/22 09:00 Aspirin Ec 81mg Tablet PO 04/27/22 08:59 DAILY [facility] Atorvastatin Calcium 20 mg 03/28/22 09:00 Atorvastatin 20mg Tablet PO 04/27/22 08:59 DAILY [facility] Heparin Sodium/Dextrose 500 mls @ 26 mls/hr 03/27/22 14:30 03/27/22 14:50 Heparin 25,000 Units In D5w 500ml Premix IV 04/26/22 14:29 26 mls/hr .[id number] JATIN Administration 1,300 UNITS/HR Miscellaneous 1 each 03/27/22 14:15 Heparin Drip Consult * 04/26/22 14:14 CONSULT PHARMACY [facility] Discontinued Medications Generic Name Dose Route Start Last Admin Trade Name Freq PRN Reason Stop Dose Admin Diphenhydramine HCl 25 mg 03/27/22 11:44 03/27/22 12:20 Diphenhydramine 50mg/Ml Vial IV 03/27/22 11:45 25 mg ONCE ONE Administration Heparin Sodium (Porcine) 6,000 unit 03/27/22 14:30 03/27/22 14:50 Heparin Sodium 5,000 Unit/Ml Vial IV 03/27/22 14:31 6,000 unit ONCE ONE Administration Iopamidol 70 ml 03/27/22 13:07 03/27/22 13:08 Iopamidol-370 (76%);100ml Bottle IV 03/15
--- NOTE | 2022-03-27 11:31 | PC.NURSE ---
rad at BS for portable xray
[2022-03-27 11:43] LABS: Basophils # 0.1 K/mm3 (0-0.2); Basophils % 0.7 % (0.1-2.0); Eosinophils # 0.1 K/mm3 (0.0-0.4); Hematocrit 33.2 % (42.0-52.0); Hemoglobin 10.9 g/dL (14.1-18.0); Lymphocytes # 1.3 K/mm3 (0.7-4.5); Lymphocytes % 17.5 % (10-50); Mean Corpuscular HGB Conc 32.9 g/dL (31.8-35.4); Mean Corpuscular Hemoglobin 24.6 pg (27.0-31.2); Mean Corpuscular Volume 74.7 fl (80-94); Monocytes # 0.5 K/mm3 (0.1-1.0); Monocytes % 6.9 % (1.7-9.3); Neutrophils # 5.5 K/mm3 (1.8-7.8); Platelet Count 337 K/mm3 (142-424); Red Blood Count 4.44 M/mm3 (4.60-6.20); White Blood Count 7.5 K/mm3 (4.8-10.8)
--- NOTE | 2022-03-27 11:43 | PC.NURSE ---
notified RT of vbg order
[2022-03-27 11:52] LABS: Chloride 99 mmol/L (98-107); Potassium 4.4 mmoL/L (3.5-5.1); Sodium 132 mmol/L (136-145)
[2022-03-27 11:54] LABS: Alanine Aminotransferase 13 U/L (12-78); Aspartate Amino Transferase 19 U/L (17-59); Blood Urea Nitrogen 13 mg/dl (9-20); Creatinine Clearance Estimated 68 mL/min (50-200); Estimated Glomerular Filt Rate 82 ml/min (>60); GFR (African American) 100 ML/MIN (>60)
[2022-03-27 11:55] LABS: Albumin Level 3.5 g/dl (3.5-5.0); Albumin/Globulin Ratio 1.2 (1.1-1.8); Alkaline Phosphatase 81 U/L (38-126); Anion Gap 9.4 mEq/L (5-15); Bilirubin,Total 0.5 mg/dl (0.2-1.3); Calcium 8.9 mg/dl (8.4-10.2); Carbon Dioxide 28 mmol/L (22.0-30.0); Globulin 2.9 g/dL (1.3-3.2); Glucose 119 mg/dl (74-100); Total Protein,Serum 6.4 g/dl (6.3-8.2)
[2022-03-27 12:05] LABS: NT Pro Brain Natriuretic Pep. 3630 pg/mL (0-450)
[2022-03-27 12:07] LABS: Troponin I 0.04 ng/ml (0.00-0.034)
--- NOTE | 2022-03-27 12:14 | CT_ITS ---
FINAL REPORT TECHNIQUE: Then section axial CT images of the chest were obtained with contrast. Three-D reformatted images were also obtained.This study was performed with techniques to keep radiation doses as low as reasonably achievable (ALARA). Individualized dose reduction techniques using automated exposure control or adjustment of mA and/or kV according to the patient''s size were employed. CLINICAL HISTORY: dyspnea FINDINGS: Cardiomegaly is noted. There are small mediastinal lymph nodes. There is esophageal wall thickening favored to be inflammatory. There is ectasia of the thoracic aorta up to 30 mm. There are bilateral pulmonary emboli involving several segmental branches bilaterally as well as the distal right main and proximal left descending pulmonary arteries. Overall clot burden is moderate. There are anterior left upper lobe pulmonary nodules measuring up to 10 mm. There are moderate changes of emphysema. There are areas of scarring. Limited images of the upper abdomen demonstrate multiple gallstones. IMPRESSION: Bilateral pulmonary emboli with an overall moderate clot burden. Anterior left upper lobe nodules. Esophageal wall thickening is favored inflammatory. If indicated, upper endoscopy could further evaluate. Reviewed, Interpreted and Dictated by Volodymyr Ruiz III, MD Transcribed by Nader Hobson Authenticated and [facility]
[2022-03-27 12:22] LABS: VBG Base Excess -1.1 mmol/L (-2.4-2.3); VBG HCO3 24.5 mmol/L (23-30); VBG Oxygen Saturation 69.9 % (50-70); VBG PCO2 44.8 mmol/L (35-51); VBG PH 7.36 mmol/L (7.31-7.41); VBG PO2 38.6 mmol/L (28-40); VBG Total CO2 25.8 mmol/L (23-27)
--- NOTE | 2022-03-27 12:41 | PC.NURSE ---
pt in CT
--- NOTE | 2022-03-27 14:20 | PC.NURSE ---
notified pharmacy of heparin drip, spoke with rebecca notified lab of added on ptt-spoke with carmen
[2022-03-27 14:22] LABS: Coronavirus 19, PCR Not Detected (NotDetected); Influenza A, PCR Not Detected (NotDetected); Influenza B, PCR Not Detected (NotDetected)
--- NOTE | 2022-03-27 14:36 | HMH.PHAHEP ---
[facility] Heparin Dosing - Demographic Data Admission date:: 03/27/22 Date: 03/27/22 Time: 14:36 Allergies/Adverse Reactions: Allergies Allergy/AdvReac Type Severity Reaction Status Date / Time Iodinated Contrast Media Allergy Intermediate Hives Verified 03/24/22 09:51 [Iodinated Contrast Media - Oral and] prednisone AdvReac Intermediate Unknown Verified 03/24/22 09:51 allergy reaction Height: 1.73 m Weight: 74.8 kg - Indication Medication therapy:: Heparin Patient Problems: Current Active Problems Pulmonary emboli (Acute) Shortness of breath (Acute) S/P lobectomy of lung (Chronic) COPD (chronic obstructive pulmonary disease) (Chronic) Tobacco use (Chronic) Hx of cancer of lung (Chronic) Abnormal EKG (Acute) Hx of pulmonary embolus (Chronic) Hx of deep venous thrombosis (Chronic) CVA?: No Bleeding problem?: No Kidney disease?: No PR?: No Desired PTT range:: Other (50-75) - Labs Anticoagulation Lab Results:: 03/27/22 11:30 Hgb 10.9 L Hct 33.2 L Plt Count 337 - Monitoring Dose Monitor 1 Date: 03/27/22 Time: 11:32 PTT Result:: 32.0 Infusion Rate:: 1,300 UNITS/HR Comment:: 6,000 UNIT BOLUS PLT= 337K Dose Monitor 2 Date: 03/27/22 Time: 16:00 PTT Result:: 200.0 Dose Monitor 3 Date: 03/27/22 Time: 19:56 PTT Result:: 48.7 Infusion Rate:: INCREASE RATE TO 1,000 UNITS/HR Comment:: 3,000 UNIT BOLUS Dose Monitor 4 Date: 03/28/22 Time: 02:00 PTT Result:: 97.5 Infusion Rate:: DECREASE RATE TO 700 UNITS/HR Dose Monitor 5 Date: 03/28/22 Time: 06:13 PTT Result:: 40.0 Infusion Rate:: INCREAE RATE TO 900 UNITS/HR Comment:: 3,000 UNIT BOLUS - Core Measures Is INR > or = 2 at discharge?: No Most Recent Labs:: Laboratory Results - last 24 hr 03/27/22 11:23: VBG pH 7.36, VBG pCO2 44.8, VBG pO2 38.6, VBG HCO3 24.5, VBG Total CO2 25.8, VBG O2 Saturation 69.9, VBG Base Excess -1.1 03/27/22 11:30: WBC 7.5, RBC 4.44 L, Hgb 10.9 L, Hct 33.2 L, MCV 74.7 L, MCH 24.6 L, MCHC 32.9, RDW 18.0 H, Plt Count 337, MPV 8.0, Neut % (Auto) 74.0, Lymph % (Auto) 17.5, [place] % (Auto) 6.9, Eos % (Auto) 1.0, Baso % (Auto) 0.7, Neut # (Auto) 5.5, Lymph # (Auto) 1.3, [place] # (Auto) 0.5, Eos # (Auto) 0.1, Baso # (Auto) 0.1 03/27/22 11:30: Sodium 132 L, Potassium 4.4, Chloride 99, Carbon Dioxide 28, Anion Gap 9.4, BUN 13, Creatinine 0.90, Estimated Creat Clear 68, Estimated GFR 82, Est GFR ( Amer) 100, Glucose 119 H, Calcium 8.9, Total Bilirubin 0.5, AST 19, ALT 13, Alkaline Phosphatase 81, Troponin I 0.04 H, Total Protein 6.4, Albumin 3.5, Globulin 2.9, Albumin/Globulin Ratio 1.2 03/27/22 11:30: NT-Pro-B Natriuret Pep 3630 H 03/27/22 11:32: APTT 32.0 If INR was < than 2.0 why was therapy stopped?: SWITCH BACK TO ELIQUIS Were Heparin and Warfarin started on the same day?: No If not, why?: SWITCH BACK TO ELIQUIS
--- NOTE | 2022-03-27 14:46 | PC.NURSE ---
LUZ MARCOS speaking with dr. tompkins
--- NOTE | 2022-03-27 14:50 | PC.NURSE ---
Dr Cecilia sotelo , he spoke with Dr Vasquez pt to be admitted
[2022-03-27 15:03] LABS: Troponin I 0.03 ng/ml (0.00-0.034)
--- NOTE | 2022-03-27 15:15 | PC.NURSE ---
report called to jeremías mendoza on second floor at this time, states she will send staff down to transport pt
--- NOTE | 2022-03-27 15:20 | CA_ITS ---
APPROVED REPORT EXAM: Comprehensive 2D, Doppler, and color-flow Echocardiogram [employer] Account Executive: ALLYSON Thomas, RVS Ht: 5 ft 8 in Wt: 164lbs BSA: 1.88 BP: 135/80 mmHg Indications: PULMONARY EMBOLI, HX-COVID, PHTN, LUNG CA, SOA, COPD, HTN, SMOKER Echo Enhancing Agent Comments: Technically limited exam due to limited apical windows S/P Left chest tube s/p Left pneumothorax 2D Dimensions Aortic Root 3.69 cm Left Atrium 2.24 cm LVOT 2.11 cm (M/F) 1.5-2.5 M-Mode Dimensions RVDd 3.27 cm (0.9-2.6) LA Diam 3.47 cm (1.9-4.0) LVDd 5.61 cm (3.5-5.7) Ao Diam 3.37 cm (2.0-3.7) LVDs 3.23 cm (3.5-5.7) IVSd 1.15 cm (0.6-1.1) PWd 1.15 cm (0.6-1.1) EF (Teich) 72.80% EPSs 0.51 cm FS 42.40% EDV (Teich) 154.30 mL TAPSE 1.79 (<1.7) ESV (Teich) 41.90 mL LV Diastology E Decel Time 180.00 (160-240 msec) E/A Ratio 0.67 MED E' 6.20 (< 7 cm/sec) MED A' 12.30 cm/s E'/MED E' Ratio 7.24 (>14) LAT E' 7.90 (<10 cm/sec) LAT A' 12.60 cm/s E/LAT E' Ratio 5.68 (>14) Aortic Valve AO Peak GR. 4.20 mmHg Mitral Valve MV A Velocity 67.00 (40-130 cm/s) E/A Ratio 0.67 MV Decel. Time 180.00 (160-240 ms) Pulmonary Valve PV Peak Velocity 53.00 (50-150 cm/s) IL End VMAX 181.00 cm/s Tricuspid Valve TR P. Velocity 288.00 cm/s RAP Estimate 10.00 mmHg RVSP 43.30 mmHg Left Ventricle Difficult study because of the patient factors and poor acoustic windows. Left atrium is mildly enlarged, left ventricle is normal size, mild concentric left ventricular hypertrophy, estimated ejection fraction 55% with no regional wall motion abnormality, endocardial surfaces are poorly visualized, diastolic parameters are inconclusive. Right Ventricle Right atrium and right ventricle moderately enlarged, contractility of the right ventricle is moderately reduced. Aortic Valve Aortic valve is thickened and calcified without Doppler evidence of aortic stenosis or aortic insufficiency. Mitral Valve Mitral valve is grossly normal, there is mild mitral regurgitation. Tricuspid Valve Tricuspid grossly normal, there is mild tricuspid regurgitation, calculated right ventricular systolic pressure is 43 mmHg. Pulmonic Valve Pulmonic valve is poorly visualized. Great Vessels Aortic root is normal size. Inferior vena cava is poorly visualized. Pericardium No significant pericardial effusion noted. Conclusion 1. Biatrial enlargement, normal left ventricular size, mild concentric left ventricular hypertrophy, estimated ejection fraction 55% with no regional wall motion abnormality, diastolic parameters are inconclusive. 2. Moderately enlarged right ventricle with moderately reduced right ventricular contractility. 3. Mild mitral and tricuspid regurgitation, calculated right ventricular systolic pressure is 43 mmHg. 4. No significant pericardial effusion. 5. Inferior vena cava is poorly visualized. Electronically signed by : Jose Zhou MD 03/27/2022 18:41:07
--- NOTE | 2022-03-27 15:23 | P.CONPHA_ITS ---
[facility] Pharmacy VTE Monitoring - Patient Demographics Admission date: 03/27/22 Report Date: 03/27/22 Time: 15:23 Allergies/Adverse Reactions: Patient Allergies Iodinated Contrast Media [Iodinated Contrast Media - Oral and] Allergy (Intermediate, Verified 03/24/22 09:51) Hives prednisone Adverse Reaction (Intermediate, Verified 03/24/22 09:51) Unknown allergy reaction Height: 1.73 m Weight: 74.8 kg Patient Problems: Current Active Problems Pulmonary emboli (Acute) Shortness of breath (Acute) - VTE Risk Labs: VTE Related Lab Results Hgb 10.9 g/dL (14.1-18.0) L 03/27/22 11:30 Hct 33.2 % (42.0-52.0) L 03/27/22 11:30 Plt Count 337 K/mm3 (142-424) 03/27/22 11:30 APTT 32.0 Seconds (23.6-34.0) 03/27/22 11:32 BUN 13 mg/dl (9-20) 03/27/22 11:30 Creatinine 0.90 mg/dl (0.66-1.25) 03/27/22 11:30 Estimated Creat Clear 68 mL/min (50-200) 03/27/22 11:30 - Prophylaxis VTE Prophylaxis Ordered?: Yes Types of VTE Prophylaxis: TEDS Knee High, Pharmacological Location of Applied Device: Bilateral Lower Extremeties Pharmacologic Type: Heparin
[2022-03-27 18:19] LABS: Troponin I 0.03 ng/ml (0.00-0.034)
--- NOTE | 2022-03-27 19:27 | PC.NURSE ---
Pt's stated pt recently began taking vitamin d, but not aware of dose at this time.
[2022-03-27 20:42] LABS: PTT Heparin (inpatient only) 48.7 Seconds (23.6-34.0)
--- NOTE | 2022-03-27 20:57 | PC.NURSE ---
2051- Spoke to Maria R from [employer]. Increase heparin gtt to 1000unit/hr. give a 3,000 unit bolus of heparin and repeat PTT in 6 hours
--- NOTE | 2022-03-27 21:07 | HMH.HP ---
*Admission Date: 03/27/22 *Chief complaint: Dyspnea and increased oxygen requirement *History of present illness: 76-year-old male with advanced COPD who has had a history of lung cancer, status post thoracotomy and partial lobectomy 3 years ago at [facility] with Dr. Bryce Haynes, who is also had coronary artery disease. Recently he was hospitalized for chest tube after suffering a spontaneous pneumothorax-this was in the context of a recent visit for endoscopic bronchial biopsies of a new lesion in his chest. The lymph nodes in the chest were biopsied and biopsy showed normal lymph nodes. There is another spot on the chest with a somewhat suspicious, but patient tells me tonight that Dr. Haynes thinks it is too small for biopsy right now I will see him back again in May. Patient last week was diagnosed with DVTs by pulmonology, placed on oral anticoagulation therapy and sent home. He did well for several days but this morning began to have increasing dyspnea, chest heaviness and some chest pains, came back to the emergency department. CT angio of chest revealed multiple segmental pulmonary emboli. Patient was hospitalized given increased oxygen requirement for heparinization and further diagnostic testing as needed. Of note, when I saw patient bay he was already feeling better after oxygen initiation of heparin drip. [facility] History I have reviewed the patient's past medical history: Yes Medical History: Reports:: Cancer, Chronic Obstructive Pulmonary Disease (COPD), Hyperlipidemia, Hypertension, Pulmonary Embolism Denies:: Diabetes Mellitus Type 1, Diabetes Mellitus Type 2, Internal Pacemaker, MRSA, Seizures *Have you ever received a pneumonia vaccine?: Yes *Have you received a flu vaccine this season?: Yes Other Medical History: Reports: Arthritis. Denies: Blood Transfusion Reaction Laterality Cases: Left: Other Other Surgeries: Yes: Cancer Surgery, Cardiac Catheterization, Colonoscopy, EGD, Other (partial lobectomy 2019). No: Pacemaker Amputation: No Fractures: No - *Social History Smoking Status: Current every day smoker Tobacco Type: cigarettes # Packs/Day (cigarettes): 1 Alcohol Intake: never Substance Use Type: denies use *Occupational Status:: retired Housing: house Household Members: spouse *Travel in the last 8 weeks: None Family Hx:: Cancer Review of Systems - Review of Systems Review of systems:: pertinent systems reviewed and negative unless documented below - *Neurologic Denies dizziness, Denies headache(s), Denies numbness Meds Home Medications Medication Instructions Recorded Confirmed Type Aspirin [Aspirin 81mg EC Tab] 81 mg PO DAILY 04/13/18 03/27/22 History Omeprazole Magnesium [Prilosec Otc 40 mg PO DAILY 04/13/18 03/27/22 History 20mg Tab] multivitamin 1 tab PO DAILY 01/20/21 03/24/22 History atorvastatin 20 mg tablet 20 mg PO DAILY tab 01/25/21 03/27/22 History aluminum hydrox-magnesium carb 95 15 ml PO QPCHS PRN 09/06/21 03/27/22 History mg-358 mg/15 mL oral suspension Phenyleph/Shark Emilia.oil/Mo/Pet 28 gm RC BID PRN #280 gm 10/22/21 03/24/22 Rx [Hemorrhoidal Ointment] Metoclopramide HCl [Reglan 10mg 5 mg PO ACHS 10/24/21 03/27/22 History Tab] Azelastine HCl [Azelastine Nasal 2 spray NS BID PRN 02/01/22 03/24/22 History [place] 30mL Bottle] Lidocaine [Lidocaine 5% ointment 1 applic TP DAILY 02/01/22 03/24/22 History 35gm tube] gabapentin 300 mg capsule 300 mg PO TID 02/16/22 03/27/22 History Budesonide/Glycopyr/Formoterol 2 puff IH BID 03/02/22 03/27/22 History [Breztri Aerosphere Inhaler] Sucralfate [Carafate 1gm Tab] 1 gm PO ACHS 03/10/22 03/27/22 History Albuterol Sulfate [Albuterol 2 inh IH Q6HP PRN 03/11/22 03/27/22 History Sulfate Hfa] Ipratropium/Albuterol Sulfate 3 ml IH QIDP PRN 03/11/22 03/27/22 History [Duoneb 3mL neb] Apixaban [Eliquis] 5 mg PO BID 03/27/22 03/27/22 History Furosemide [Furosemide 20mg Tab*] 20 mg PO POLLY
[2022-03-28] VITALS: BP 123/70; PULSE 90; PULSE 92; RESP 20; TEMP 36.6; O2SAT 94
--- NOTE | 2022-03-28 00:06 | PC.NURSE ---
8217 Pt c/o restlessness and wanting something for sleep. Pt stated that PRN ativan did not help at all . Called MD Kirk, manager of employee relations for MD Brooks. Telephone order to give x1 dose of 50mg PO Benadryl. Orders received and carried out.
[2022-03-28 02:46] LABS: PTT Heparin (inpatient only) 97.5 Seconds (23.6-34.0)
--- NOTE | 2022-03-28 02:51 | PC.NURSE ---
0248- Spoke to Maria R from [employer] regarding 0200 PTT. Decrease rate to 700 units/hr, no bolus, recheck PTT in 3 hours
[2022-03-28 04:00] VITALS: BP 127/74; PULSE 89; PULSE 90; RESP 21; TEMP 36.6; O2SAT 94
--- NOTE | 2022-03-28 04:06 | PC.NURSE ---
Pt has rested well since taking PO Benadryl ordered by MD environmental services attendant for insomnia. Prior to giving this pt was very anxious all night and required constant reassurance from and nursing staff. Heparin gtt has been titrated per [facility] this shift, SEE PRIOR NOTES FOR DETAILS. Pt remains on 2LNC. Pt insists on putting nasal cannula in mouth d/t mouth breathing . O2 sats have been above 90%. Pt has diminished lung sounds w/ scattered wheezing noted. Pt's LLE seems to be more edematous than his RLE. Pedal pulses strong and equal. No tenderness or erythema noted to LLE. D/t pt taking PO ativan and PO Benadryl this shift, pt's bed alarm has been turned on for safety Pt's remains at bedside. No other acute changes, will monitor.
[2022-03-28 05:02] VITALS: BMI 25.5
--- NOTE | 2022-03-28 05:51 | PC.NURSE ---
Contacted lab about pts scheduled 0500 PTT for heparin gtt. Was told laboratory monitor was on the floor and to notify her. filling technician notified and she will go to pts room next.
--- NOTE | 2022-03-28 06:30 | PC.NURSE ---
Doris ARZATE NOTIFIED OF CONSULT
[2022-03-28 06:51] LABS: Basophils % 0.1 % (0.1-2.0); Hematocrit 31.5 % (42.0-52.0); Hemoglobin 10.7 g/dL (14.1-18.0); Lymphocytes % 9.8 % (10-50); Mean Corpuscular Hemoglobin 25.4 pg (27.0-31.2); Mean Corpuscular Volume 74.7 fl (80-94); Mean Platelet Volume 8.8 fl (7.4-10.4); Monocytes # 0.3 K/mm3 (0.1-1.0); Monocytes % 3.5 % (1.7-9.3); Neutrophils # 8.5 K/mm3 (1.8-7.8); Neutrophils % 86.6 % (37.0-80.0); Platelet Count 331 K/mm3 (142-424); Red Blood Count 4.21 M/mm3 (4.60-6.20); Red Cell Distribution Width 19.3 % (11.5-17.5); White Blood Count 9.9 K/mm3 (4.8-10.8)
[2022-03-28 06:55] LABS: Chloride 98 mmol/L (98-107); Potassium 4.3 mmoL/L (3.5-5.1); Sodium 130 mmol/L (136-145)
[2022-03-28 06:57] LABS: MANUAL DIFFERENTIAL MANUAL DIFFERENTIAL (MANUAL DIFF)
[2022-03-28 06:58] LABS: Anion Gap 9.3 mEq/L (5-15); Blood Urea Nitrogen 11 mg/dl (9-20); Carbon Dioxide 27 mmol/L (22.0-30.0); Creatinine Clearance Estimated 69 mL/min (50-200); Estimated Glomerular Filt Rate 94 ml/min (>60); GFR (African American) 114 ML/MIN (>60)
[2022-03-28 06:59] LABS: Calcium 8.9 mg/dl (8.4-10.2); Glucose 151 mg/dl (74-100)
--- NOTE | 2022-03-28 07:15 | HMH.ACPN2 ---
Internal Medicine - PN: Subj *Date: 03/28/22 *Time: 07:15 Exam Vital signs and Labs for Last 24 Hours: Temp Pulse Resp BP Pulse Ox 97.8 F 89 21 127/74 94 L 03/28/22 04:00 03/28/22 04:00 03/28/22 04:00 03/28/22 04:00 03/28/22 04:00 Laboratory Results - last 24 hr 03/27/22 11:23: VBG pH 7.36, VBG pCO2 44.8, VBG pO2 38.6, VBG HCO3 24.5, VBG Total CO2 25.8, VBG O2 Saturation 69.9, VBG Base Excess -1.1 03/27/22 11:30: WBC 7.5, RBC 4.44 L, Hgb 10.9 L, Hct 33.2 L, MCV 74.7 L, MCH 24.6 L, MCHC 32.9, RDW 18.0 H, Plt Count 337, MPV 8.0, Neut % (Auto) 74.0, Lymph % (Auto) 17.5, [place] % (Auto) 6.9, Eos % (Auto) 1.0, Baso % (Auto) 0.7, Neut # (Auto) 5.5, Lymph # (Auto) 1.3, [place] # (Auto) 0.5, Eos # (Auto) 0.1, Baso # (Auto) 0.1 03/27/22 11:30: Sodium 132 L, Potassium 4.4, Chloride 99, Carbon Dioxide 28, Anion Gap 9.4, BUN 13, Creatinine 0.90, Estimated Creat Clear 68, Estimated GFR 82, Est GFR ( Amer) 100, Glucose 119 H, Calcium 8.9, Total Bilirubin 0.5, AST 19, ALT 13, Alkaline Phosphatase 81, Troponin I 0.04 H, Total Protein 6.4, Albumin 3.5, Globulin 2.9, Albumin/Globulin Ratio 1.2 03/27/22 11:30: NT-Pro-B Natriuret Pep 3630 H 03/27/22 11:32: APTT 32.0 03/27/22 14:15: SARS-CoV-2 (PCR) Not detected, Influenza A Untype (PCR) Not detected, Influenza Type B (PCR) Not detected 03/27/22 14:35: Troponin I 0.03 03/27/22 16:10: APTT 200.0 H* 03/27/22 17:40: Troponin I 0.03 03/27/22 19:56: APTT 48.7 H 03/28/22 02:00: APTT 97.5 H* 03/28/22 06:13: WBC 9.9 D, RBC 4.21 L, Hgb 10.7 L, Hct 31.5 L, MCV 74.7 L, MCH 25.4 L, MCHC 34.0, RDW 19.3 H, Plt Count 331, MPV 8.8, Neut % (Auto) 86.6 H, Lymph % (Auto) 9.8 L, [place] % (Auto) 3.5, Eos % (Auto) 0.0 L, Baso % (Auto) 0.1, Neut # (Auto) 8.5 H, Lymph # (Auto) 1.0, [place] # (Auto) 0.3, Eos # (Auto) 0.0, Baso # (Auto) 0.0 03/28/22 06:13: Sodium 130 L, Potassium 4.3, Chloride 98, Carbon Dioxide 27, Anion Gap 9.3, BUN 11, Creatinine 0.80, Estimated Creat Clear 69, Estimated GFR 94, Est GFR ( Amer) 114, Glucose 151 H D, Calcium 8.9 I & O for Last 24 hours: Intake & Output 03/25/22 03/26/22 03/27/22 03/28/22 23:59 23:59 23:59 23:59 Intake Total 720 / 860 384 / 384 Output Total 200 / 450 250 / 250 Balance 520 / 410 134 / 134 Weight 161.9 kg 76.566 kg Assessment and Plan (1) Pulmonary emboli Status: Acute Qualifiers: Pulmonary embolism type: multiple subsegmental (without acute cor pulmonale) Qualified Code(s): I26.94 - Multiple subsegmental pulmonary emboli without acute cor pulmonale Category: Medical Code(s): I26.99 - Other pulmonary embolism without acute cor pulmonale
--- NOTE | 2022-03-28 07:23 | HMH.PHAINT ---
MEDICATION RECONCILIATION COMPLETED ON PATIENT USING EXTERNAL FILL HISTORY FROM PHARMACY AND LIST FROM PREVIOUS ADMISSION. -LILLIAM WALKERD
[2022-03-28 08:00] VITALS: BP 118/72; PULSE 100; PULSE 104; RESP 18; TEMP 36.5; O2SAT 90
[2022-03-28 08:37] LABS: Lymphocytes % 13 % (10-50); Monocytes % 3 % (2-9); Neutrophils % 84 % (42-76); Total Cells Counted 100
[2022-03-28 08:38] LABS: Microcytosis 1+
[2022-03-28 08:39] LABS: Anisocytosis 1+; Platelet Estimate Normal
--- NOTE | 2022-03-28 09:02 | HMH.CNCARD ---
History of Present Illness Consult date: 03/28/22 Requesting physician: Sravan Brooks Chief complaint: SOA, Pulm Emboli Additional Medical History:: 1. CAD A. LHC/RHC , 06/22/2020 ANGIOGRAPHIC RESULTS The left main artery Normal The left anterior descending artery Is a small vessel not reaching the apex. The proximal portion has a smooth 10 to 20% stenosis The circumflex artery Normal The right coronary artery Is a massively large dominant vessel with proximal 30% stenosis mid vessel 30 and 40% stenosis. The distal segment has a 20% stenosis which extends into a large posterior lateral branch. The [place] ventriculogram reveals Normal 65% The left ventricular end-diastolic pressure Less than 10 mmHg Right atrial pressure 5 mmHg Pulmonary artery pressure 32/12 mm Hg Pulmonary artery occlusion pressure 8 mmHg Pulmonary saturation 79% Right atrial saturation 82% IMPRESSION Mild to moderate [id number] disease in a massively large dominant right coronary artery Normal ejection fraction Mildly pulmonary hypertension B. Lexiscan Myoview, JANUARY 2021, Normal. 2. Hypertension 3. AAA A. Abdominal CT, 05/2020, There is an infrarenal abdominal aortic aneurysm which measures up to 3.8 cm transverse and 3.5 cm AP. There is no evidence of retroperitoneal hemorrhage. The aneurysm begins approximately 4 cm below the level of the renal arteries. The aneurysm extends to just above the aortic bifurcation. The proximal common iliacs measure up to 1.2 cm on both sides 4. Hyperlipidemia 5. History of lung cancer with left lobectomy approximately 2017, patient reports 48% left lung removed. A. Lung biopsy, 03/2020, negative for malignancy. Pneumothorax sustained 2 days later requiring chest tube placement. 6. History of DVT and PE, 2019, anticoagulated with Eliquis A. Hospitalization for bilateral pulmonary emboli with calculated RV/LV index of 0.78 by CTA scan, 03/27/2022. Cardiomegaly is noted. There are small mediastinal lymph nodes. There is esophageal wall thickening favored to be inflammatory. There is ectasia of the thoracic aorta up to 30 mm. There are bilateral pulmonary emboli involving several segmental branches bilaterally as well as the distal right main and proximal left descending pulmonary arteries. Overall clot burden is moderate. There are anterior left upper lobe pulmonary nodules measuring up to 10 mm. There are moderate changes of emphysema. There are areas of scarring. Limited images of the upper abdomen demonstrate multiple gallstones. IMPRESSION: Bilateral pulmonary emboli with an overall moderate clot burden. Anterior left upper lobe nodules. Esophageal wall thickening is favored inflammatory. If indicated, upper 7. Ongoing tobacco use A. COPD with as needed oxygen use. Followed by pulmonology 8. History of cardiomyopathy with EF 45% with inferior wall hypokinesis and diastolic dysfunction, 06/2020 A. Echo, 03/27/2022, 1. Biatrial enlargement, normal LV size, mild concentric LVH, EF 55% with no wall motion abnormalities. Diastolic parameters inconclusive. Moderate RV enlargement with moderately reduced RV contractility. Mild MR and TR with RVSP of 43 mmHg. No significant pericardial effusion. 9. History of gynecomastia History of present illness: 76-year-old male with advanced COPD who has had a history of lung cancer, status post thoracotomy and partial lobectomy 3 years ago at [facility] with Dr. Bryce Haynes, who is also had coronary artery disease. Recently he was hospitalized for chest tube after suffering a spontaneous pneumothorax-this was in the context of a recent visit for endoscopic bronchial biopsies of a new lesion in his chest. The lymph nodes in the chest were biopsied and biopsy showed normal lymph nodes. There is another spot on the chest with a somewhat suspicious, but patient tells me bay that
--- NOTE | 2022-03-28 09:20 | HMH.DCSUM ---
General - General Admission date:: 03/27/22 Discharge date: 03/28/22 HPI HPI: 76-year-old male with advanced COPD who has had a history of lung cancer, status post thoracotomy and partial lobectomy 3 years ago at [facility] with Dr. Bryce Haynes, who is also had coronary artery disease. Recently he was hospitalized for chest tube after suffering a spontaneous pneumothorax-this was in the context of a recent visit for endoscopic bronchial biopsies of a new lesion in his chest. The lymph nodes in the chest were biopsied and biopsy showed normal lymph nodes. There is another spot on the chest with a somewhat suspicious, but patient tells me tonight that Dr. Haynes thinks it is too small for biopsy right now I will see him back again in May. Patient last week was diagnosed with DVTs by pulmonology, placed on oral anticoagulation therapy and sent home. He did well for several days but this morning began to have increasing dyspnea, chest heaviness and some chest pains, came back to the emergency department. CT angio of chest revealed multiple segmental pulmonary emboli. Patient was hospitalized given increased oxygen requirement for heparinization and further diagnostic testing as needed. Of note, when I saw patient bay he was already feeling better after oxygen initiation of heparin drip. Hospital Course Hospital Course: Don is a 76-year-old male admitted for increased shortness of breath. Findings consistent with bilateral pulmonary emboli, subsegmental. Monitored overnight. Diuresed x1. Started on heparin drip. Cardiology consulted. Echo obtained. Cardiology recommendations as follows: - Bilateral pulmonary emboli in a patient with prior lobectomy for lung cancer with recent nodule biopsy being nonmalignant. Currently on IV heparin with improvement clinically. RV/LV index calculated at 0.78. No interventricular septal flattening noted on CTA of the chest. Ejection fraction by echo is 55%. He does have moderate RV enlargement with moderately reduced contractility. Discussed with Dr. Clemons who would recommend medical management. Recommend restarting his Eliquis but increasing it to 10 mg twice daily for 7 days then reducing it back to 5 mg twice daily chronically. Medically stable for discharge home. Continue home oxygen as needed. Close follow-up in the outpatient setting. No other changes today. Patient reports overall he feels better. Objective Vital signs: Temp Pulse Resp BP Pulse Ox 97.7 F 104 H 18 118/72 90 L 03/28/22 08:00 03/28/22 08:00 03/28/22 08:00 03/28/22 08:00 03/28/22 08:00 no acute distress - *Routine HEENT Exam Head: Present: normocephalic Eye: Present: EOMI, PERRL ENT: Present: mucous membranes moist - *Routine Neck Exam Present: supple - *Routine Respiratory Exam Present: diminished air movement. Absent: wheezes - *Routine Cardiovascular Exam Present: RRR - *Routine Abdominal Exam Present: soft, normoactive bowel sounds. Absent: tenderness - *Routine Extremities Exam Absent: cyanosis, clubbing, edema - *Routine Skin Exam Present: warm. Absent: rash Results Labs on day of discharge: Labs from last 24 hours 03/28/22 03/28/22 03/28/22 06:13 06:13 06:13 WBC 9.9 D RBC 4.21 L Hgb 10.7 L Hct 31.5 L MCV 74.7 L MCH 25.4 L MCHC 34.0 RDW 19.3 H Plt Count 331 MPV 8.8 Neut % (Auto) 86.6 H Lymph % (Auto) 9.8 L [place] % (Auto) 3.5 Eos % (Auto) 0.0 L Baso % (Auto) 0.1 Neut # (Auto) 8.5 H Lymph # (Auto) 1.0 [place] # (Auto) 0.3 Eos # (Auto) 0.0 Baso # (Auto) 0.0 Total Counted 100 Neutrophils % (Manual) 84 H Lymphocytes % (Manual) 13 Monocytes % (Manual) 3 Platelet Estimate Normal Anisocytosis 1+ Microcytosis 1+ APTT 40.0 H VBG pH VBG pCO2 VBG pO2 VBG HCO3 VBG Total CO2 VBG O2 Saturation VBG Base Excess Sodium 130 L
--- NOTE | 2022-03-28 09:59 | SW/DCPLANNER ---
I did receive a consult on this patient regarding pulmonary emboli and weakness. I did round with Dr Oh this AM: he did not feel that patient needed PT/OT at this time. Patient does currently have home O2. The plan for this patient is to discharge home today.
[2022-03-28 11:21] VITALS: BP 136/74; PULSE 83; RESP 18; TEMP 36.4; O2SAT 97
--- NOTE | 2022-03-30 07:48 | PC.NURSE ---
Late entry from 03/27/22 @ approx 1700. Critical ptt called to [facility] and heparin gtt adjusted per mar and ptt ordered per orders.
--- NOTE | 2022-03-30 15:08 | CARE MANAGER ---
Contacted patient related to hospital discharge. Patient states that he is somewhat better, but did not realize he needed to pick any medication up. We discussed his Carafate, what it was for and how long to take it. He did go to his follow up appt. today. he denies other questions/concerns, but wants to get off phone to reach who is going to drug store now. ARIAS Rascon
== END 2022-03-28 12:24 | disposition home or self-care (01) ==
LOC: ER 15:08 → 2ND 15:24
PROVIDERS: Internal Medicine; Admitting Provider Internal Medicine Adolescent Medicine; Emergency Provider Emergency Medicine; PCP Internal Medicine Adolescent Medicine; Visit Provider Internal Medicine Adolescent Medicine
DX: I26.94 Multiple subsegmental thrombotic pulmonary emboli without acute cor pulmonale (principal); Z79.01 Long term (current) use of anticoagulants; I25.10 Atherosclerotic heart disease of native coronary artery without angina pectoris; I10 Essential (primary) hypertension; F17.210 Nicotine dependence, cigarettes, uncomplicated; Z20.822 Contact with and (suspected) exposure to COVID-19; Z79.899 Other long term (current) drug therapy; Z88.8 Allergy status to other drugs, medicaments and biological substances; R06.9 Unspecified abnormalities of breathing; Z99.81 Dependence on supplemental oxygen; I82.432 Acute embolism and thrombosis of left popliteal vein; I82.452 Acute embolism and thrombosis of left peroneal vein; Z90.2 Acquired absence of lung [part of]; I71.4 Abdominal aortic aneurysm, without rupture
CPT/HCPCS: G0378; 36415; 71045; 71275; 80048; 80053; 82803; 83880; 84484; 85007; 85025; 85730; 93005; 93306; 99291; C9803; Q9967; U0003; U0005

== ENCOUNTER → 2022-04-21 12:42 | Outpatient (CLI) | payer MEDICARE, SELFPAY ==
--- NOTE | 2022-04-21 12:48 | CT_ITS ---
FINAL REPORT TECHNIQUE: Axial images were obtained from the lung apex to the mid abdomen by computed tomography. Coronal reformatted images were obtained. This study was performed with techniques to keep radiation doses as low as reasonably achievable, (ALARA). Individualized dose reduction techniques using automated exposure control or adjustment of mA and/or kV according to the patient''s size were employed. CLINICAL HISTORY: MULTIPLE LUNG NODULES, lung cancer, sob COMPARISON: January 29, 2022 FINDINGS: There is no axillary adenopathy. There is no hilar or mediastinal adenopathy. Heart size is normal. There is moderate coronary artery calcification. There are postoperative changes in the left thorax. There is a small left pleural effusion or pleural thickening. There is no pericardial effusion. Limited images of the upper abdomen demonstrate gallstones within the gallbladder. On the lung window images there are moderate to severe changes of emphysema. There has been marked improvement in multiple right lower lobe nodules and a left midlung nodule. There are several other stable nodules including a 7 mm left upper lobe nodule on image 23 and a 3 mm right upper lobe nodule on image 34. There are several new small nodules in the left lung base measuring up to 8 mm as seen on image 67. IMPRESSION: Interval improvement in multiple previously identified pulmonary nodules. Other stable small pulmonary nodules. Multiple new small left lung base nodules, favor inflammatory. Could be further evaluated with follow-up chest CT in 6 months. Reviewed, Interpreted and Dictated by Volodymyr Ruiz III, MD Transcribed by Sara Yang Authenticated and [facility]
== END ==
PROVIDERS: PCP Internal Medicine Adolescent Medicine; Visit Provider Thoracic Surgery (Cardiothoracic Vascular Surgery)
DX: R91.8 Other nonspecific abnormal finding of lung field (principal)
CPT/HCPCS: 71250

== ENCOUNTER 2022-04-30 10:41 | Emergency (ER) | payer MEDICARE, SELFPAY ==
[2022-04-30 10:41] VITALS: BP 127/73; PULSE 97; RESP 16; TEMP 37.2; O2SAT 98; BMI 24.9
--- NOTE | 2022-04-30 10:54 | HMH.EDUTC ---
[facility] Disposition Clinical Impression: Fever blister Acute bronchitis Qualifiers: Bronchitis organism: unspecified organism Qualified Code(s): J20.9 - Acute bronchitis, unspecified Pharyngitis Qualifiers: Pharyngitis/tonsillitis etiology: other specified organisms Qualified Code(s): J02.8 - Acute pharyngitis due to other specified organisms Disposition: Home, Self-Care Condition on Discharge: Good Instructions: Acute Bronchitis, DI for Acute Bronchitis, DI for Cold Sores Additional Instructions: Drink plenty of fluids. Take tylenol for pain or fever. Take the medications as directed. Follow up with your regular doctor. GO TO THE ER FOR ANY WORSENING SYMPTOMS Prescriptions: Valacyclovir HCl [Valacyclovir] 500 mg PO BID 5 Days #10 tab Transmission Status: Received by [id number] Azithromycin [Z-Jamar 250mg Tab*] 250 mg PO UD DOSE PK #6 tab Transmission Status: Received by [id number] Referrals: Sravan Brooks MD [Primary Care Provider] - Time of Disposition: 11:24 Medical Decision Making - Medical Records Medical records reviewed: No: I reviewed the patient's medical records. - Randy Inquiry Pt receiving controlled substance: No Vital Signs: 04/30/22 10:41 04/30/22 11:33 Temperature 98.9 F 98.9 F Temperature Source Oral Oral Pulse Rate 90 Pulse Rate [Right] 97 H Respiratory Rate 16 16 Blood Pressure 127/70 Blood Pressure [Right Arm] 127/73 Blood Pressure Mean [Right Arm] 91 Blood Pressure Source Automatic Cuff Blood Pressure Source [Right Arm] Automatic Cuff Blood Pressure Position Sitting Blood Pressure Position [Right Arm] Sitting 02 Sat by Pulse Oximetry 98 Oxygen Delivery Method Room Air Room Air - Lab Data Lab Results 04/30/22 11:05: Strep Scn Rapid Clinic Negative 04/30/22 11:26: Chlamy pneumoniae PCR Not detected, Adenovirus (PCR) Not detected, B. pertussis DNA (PCR) Not detected, Coronavirus OC43 (PCR) Not detected, Coronavirus HKU1 (PCR) Not detected, Coronavirus 229E (PCR) Not detected, SARS-CoV-2 (PCR) Not detected, Coronavirus NL63 (PCR) Not detected, Human Metapneumovir PCR Not detected, Influenza A (H1) PCR Not detected, Influ A (H1N1/09) PCR Not detected, Influenza A (H3) PCR Not detected, Influenza Type A (PCR) Not detected, Influenza Type B (PCR) Not detected, M. pneumoniae (PCR) Not detected, Parainfluenza 1 (PCR) Not detected, Parainfluenza 2 (PCR) Not detected, Parainfluenza 3 (PCR) Not detected, Parainfluenza 4 (PCR) Not detected, RSV (PCR) Not detected, Entero/Rhino (PCR) Not detected Orders (Tests/Meds): ORDERS Category Date Time Status Strep Screen Confirmation Stat Micro 04/30/22 11:05 Received [facility] HPI - General Stated complaint: oral bumps/swelling Time Seen by Provider: 04/30/22 10:55 - History of Present Illness Provider Complaint: He states that for the past 2 weeks he has had a sore bumps on his lips. He saw Dr. Brooks and he was started on acyclovir ointment on his lips. He states that this has not helped. He is having some lip swelling now. He also has a sore throat and productive cough for the past 4 days also. He denies any chest pain. - Related Data Home Medications Medication Instructions Recorded Confirmed multivitamin 1 tab PO DAILY 01/20/21 03/30/22 atorvastatin 20 mg tablet 20 mg PO DAILY tab 01/25/21 03/30/22 aluminum hydrox-magnesium carb 95 15 ml PO QPCHS PRN 09/06/21 03/30/22 mg-358 mg/15 mL oral suspension Metoclopramide HCl [Reglan 10mg 5 mg PO ACHS 10/24/21 03/30/22 Tab] gabapentin 300 mg capsule 300 mg PO TID 02/16/22 03/30/22 Budesonide/Glycopyr/Formoterol 2 puff IH BID 03/02/22 03/30/22 [Breztri Aerosphere Inhaler] Albuterol Sulfate [Albuterol 2 puff IH Q6HP PRN 03/11/22 03/30/22 Sulfate Hfa] Ipratropium/Albuterol Sulfate 3 ml IH QIDP PRN 03/11/22 03/30/22 [Duoneb 3mL neb] Apixaban [Eliquis] 5 mg PO BID 03/27/22 03/30/22 Furosemide [Furosemid
[2022-04-30 11:25] LABS: UTC Strep Screen (Rapid) Negative (Negative)
[2022-04-30 11:33] VITALS: BP 127/70; PULSE 90; RESP 16; TEMP 37.2; O2SAT 99
[2022-04-30 11:34] LABS: Adenovirus,PCR Not Detected (NotDetected); Bordetella Pertussis Not Detected (NotDetected); Chlamydophila Pneumoniae, PCR Not Detected (NotDetected); Coronavirus 19, PCR Not Detected (NotDetected); Coronavirus 229E Not Detected (NotDetected); Coronavirus NL63 Not Detected (NotDetected); Coronavirus OC43 Not Detected (NotDetected); Coronovirus HKU1,PCR Not Detected (NotDetected); Human Metapneumovirus Not Detected (NotDetected); Influenza A, PCR Not Detected (NotDetected); Influenza AH1, 2009 Not Detected (NotDetected); Influenza AH1, PCR Not Detected (NotDetected); Influenza AH3,PCR Not Detected (NotDetected); Influenza B, PCR Not Detected (NotDetected); Mycoplasma Pneumoniae, PCR Not Detected (NotDetected); Parainfluenza 1, PCR Not Detected (NotDetected); Parainfluenza 2, PCR Not Detected (NotDetected); Parainfluenza 3, PCR Not Detected (NotDetected); Parainfluenza 4, PCR Not Detected (NotDetected); Respiratory Syncytial Virus Not Detected (NotDetected); Rhinovirus/Enterovirus Not Detected (NotDetected)
== END 2022-04-30 11:34 | disposition home or self-care (01) ==
PROVIDERS: Emergency Provider Nurse Practitioner Family; PCP Internal Medicine Adolescent Medicine
DX: B00.1 Herpesviral vesicular dermatitis (principal); J20.9 Acute bronchitis, unspecified; Z20.822 Contact with and (suspected) exposure to COVID-19; R05.9 Cough, unspecified
CPT/HCPCS: 87581; 87632; 87798; 87880; 99212; C9803; G0463; U0003; U0005

== ENCOUNTER 2022-05-08 17:46 | Emergency (ER) | payer MEDICARE, SELFPAY ==
[2022-05-08 17:47] VITALS: BP 115/78; PULSE 70; RESP 20; TEMP 36.4; O2SAT 98; BMI 23.6
[2022-05-08 17:52] VITALS: BP 115/78; PULSE 90; O2SAT 98
[2022-05-08 18:00] VITALS: PULSE 88; O2SAT 98
[2022-05-08 18:27] LABS: Basophils # 0.1 K/mm3 (0-0.2); Basophils % 0.9 % (0.1-2.0); Eosinophils # 0.2 K/mm3 (0.0-0.4); Eosinophils % 2.2 % (0.1-12.0); Hematocrit 37.1 % (42.0-52.0); Hemoglobin 12.1 g/dL (14.1-18.0); Lymphocytes # 1.3 K/mm3 (0.7-4.5); Lymphocytes % 18.8 % (10-50); Mean Corpuscular HGB Conc 32.6 g/dL (31.8-35.4); Mean Corpuscular Hemoglobin 25.7 pg (27.0-31.2); Mean Corpuscular Volume 78.8 fl (80-94); Mean Platelet Volume 10.2 fl (7.4-10.4); Monocytes # 0.4 K/mm3 (0.1-1.0); Monocytes % 5.5 % (1.7-9.3); Neutrophils # 5.2 K/mm3 (1.8-7.8); Neutrophils % 72.6 % (37.0-80.0); Platelet Count 267 K/mm3 (142-424); Red Cell Distribution Width 18.1 % (11.5-17.5); White Blood Count 7.1 K/mm3 (4.8-10.8)
[2022-05-08 18:39] LABS: Chloride 100 mmol/L (98-107)
[2022-05-08 18:40] LABS: Potassium 4.8 mmoL/L (3.5-5.1); Sodium 133 mmol/L (136-145)
[2022-05-08 18:42] LABS: Alanine Aminotransferase 80 U/L (12-78); Amylase 72 U/L (30-110); Aspartate Amino Transferase 63 U/L (17-59); Blood Urea Nitrogen 13 mg/dl (9-20); Creatinine Clearance Estimated 63 mL/min (50-200); Estimated Glomerular Filt Rate 94 ml/min (>60); GFR (African American) 114 ML/MIN (>60)
[2022-05-08 18:43] LABS: Albumin Level 4.2 g/dl (3.5-5.0); Albumin/Globulin Ratio 1.3 (1.1-1.8); Alkaline Phosphatase 66 U/L (38-126); Anion Gap 9.8 mEq/L (5-15); Bilirubin,Total 1.4 mg/dl (0.2-1.3); Carbon Dioxide 28 mmol/L (22.0-30.0); Globulin 3.2 g/dL (1.3-3.2); Lipase 121 U/L (23-300); Total Protein,Serum 7.4 g/dl (6.3-8.2)
[2022-05-08 18:49] LABS: Calcium 9.4 mg/dl (8.4-10.2); Glucose 117 mg/dl (74-100)
--- NOTE | 2022-05-08 19:09 | CT_ITS ---
PROCEDURE INFORMATION: Exam: CT Abdomen And Pelvis With Contrast Exam date and time: 05/08/2022 7:23 PM Age: 76 years old Clinical indication: Abdominal pain; Acute; Patient HX: History of cancer TECHNIQUE: Imaging protocol: Computed tomography of the abdomen and pelvis with contrast. Radiation optimization: All CT scans at this facility use at least one of these dose optimization techniques: automated exposure control; mA and/or kV adjustment per patient size (includes targeted exams where dose is matched to clinical indication); or iterative reconstruction. Contrast material: ISOVUE; Contrast volume: 75 ml; Contrast route: IV; COMPARISON: PET CT Skull Base to Midthigh 02/13/2022 1:54 PM FINDINGS: Lungs: Minimal scarring within the right middle lobe and posterior left lower lobe. Mild right lower lobe bronchial wall thickening, compatible with reactive airway disease or bronchitis. Calcified granuloma within the posterior right lower lobe. Heart: Atherosclerotic calcification of the visualized right coronary artery and distal thoracic aorta. Liver: Normal. Gallbladder and bile ducts: Cholelithiasis. Pancreas: Normal. Spleen: Normal. Adrenal glands: Mild bilateral adrenal hyperplasia. Kidneys and ureters: Bilateral simple renal cysts, for which no further evaluation necessary. Nonobstructive punctate left nephrolithiasis. Minimal right perinephric fat stranding, similar to comparison study. Stomach and bowel: Normal. Appendix: Appendix normal. Intraperitoneal space: Unremarkable. No free air. No significant fluid collection. Vasculature: Atherosclerotic disease of the abdominal aorta and iliac arteries, with fusiform abdominal aortic aneurysm measuring 3.8 cm in maximal diameter, similar to comparison study. No evidence of leakage or rupture. Phleboliths within the pelvis. Lymph nodes: Unremarkable. No enlarged lymph nodes. Urinary bladder: 2 mm nonobstructive calculus within the posterior urinary bladder (series 4, image 95). Reproductive: Prostate gland is mildly enlarged, measuring approximately 4.6 cm in AP diameter. Bones/joints: Multilevel thoracolumbar spine degenerative disc space narrowing and osteophyte formation. Bilateral L5 pars defects. Degenerative changes of the hips and sacroiliac joints. Soft tissues: Normal. IMPRESSION: 1. No acute abdominal or pelvic abnormality. 2. Mild right lower lobe bronchial wall thickening, compatible with reactive airway disease or bronchitis. 3. Other (less critical/noncritical/incidental) findings as above; please refer to the body of report for further details. COMMENTS: Consistent with the [employer]'s Incidental Findings Committee white paper (J Am [place] [employer]iol 2018): Any incidental renal lesion less than 1 cm or classified as too small to characterize, or any incidental cystic renal lesion characterized as simple-appearing, is likely benign. No follow-up imaging is recommended for these lesions per consensus recommendations based on imaging criteria.
--- NOTE | 2022-05-08 19:14 | CT_ITS ---
PROCEDURE INFORMATION: Exam: CTA Chest With Contrast Exam date and time: 05/08/2022 7:23 PM Age: 76 years old Clinical indication: Chest wall pain; Additional info: Chest pain TECHNIQUE: Imaging protocol: Computed tomographic angiography of the chest with contrast. 3D rendering (Not supervised by radiologist): MIP and/or 3D reconstructed images were created by the technologist. Radiation optimization: All CT scans at this facility use at least one of these dose optimization techniques: automated exposure control; mA and/or kV adjustment per patient size (includes targeted exams where dose is matched to clinical indication); or iterative reconstruction. Contrast material: ISOVUE; Contrast volume: 75 ml; Contrast route: INTRAVENOUS (IV); COMPARISON: CT ANGIO CHEST PE PROTOCOL 03/27/2022 12:51 PM FINDINGS: Limitations: Evaluation of the lower lobe pulmonary arteries is limited secondary to motion artifact. Pulmonary arteries: No acute pulmonary emboli. Aorta: Atherosclerotic disease of the thoracic aorta, without aneurysm or dissection. Lungs: Moderate upper lobe predominant centrilobular emphysema, with chronic obstructive pulmonary physiologic changes. Minimal scarring within the posterior left lower lobe and within the lateral segment right middle lobe. Minimal scarring within the anterior aspect of the left lung apex. Bilateral upper and lower lobe bronchial wall thickening, compatible with reactive airway disease or bronchitis. Calcified granuloma within the posterior right lower lobe. Surgical changes of prior left upper lobectomy. Pleural spaces: Unremarkable. No pneumothorax. No pleural effusion. Heart: Moderate three-vessel coronary artery atherosclerotic calcification. Lymph nodes: Unremarkable. No enlarged lymph nodes. Bones/joints: Multilevel thoracic spine degenerative disc space narrowing and osteophyte formation. Soft tissues: Unremarkable. IMPRESSION: 1. No acute pulmonary emboli. Please see limitations above. 2. Bilateral upper and lower lobe bronchial wall thickening, compatible with reactive airway disease or bronchitis.
--- NOTE | 2022-05-08 19:17 | HMH.EDGENADL ---
ED Disposition Clinical Impression: Cholelithiasis Qualifiers: Cholelithiasis location: gallbladder Cholecystitis presence: without cholecystitis Biliary obstruction: without biliary obstruction Qualified Code(s): K80.20 - Calculus of gallbladder without cholecystitis without obstruction Disposition: Home, Self-Care Condition on Discharge: Good Additional Instructions: Please follow-up with Dr. Brooks in the morning for the concerns about the cholelithiasis and your bilirubin of 1.5. Referrals: Sravan Brooks MD [Primary Care Provider] - - Critical Care Critical Care Time: No Attestation: On 05/08/22, the high probability of a clinically significant, sudden or life threatening deterioration of the following system(s) required my full and direct attention, intervention and personal management. The time I documented below is in addition to time spent performing reported procedures but includes the following listed in this critical care notation. Medical Decision Making - Randy Inquiry Pt receiving controlled substance: No Vital Signs: 05/08/22 17:47 05/08/22 17:52 05/08/22 18:00 Temperature 97.6 F Temperature Source Oral Pulse Rate 90 88 Pulse Rate [Left Radial] 70 Respiratory Rate 20 Blood Pressure 115/78 Blood Pressure [Right Arm] 115/78 Blood Pressure Mean 88 Blood Pressure Mean [Right Arm] 90 Blood Pressure Source [Right Arm] Automatic Cuff Blood Pressure Position [Right Arm] Sitting 02 Sat by Pulse Oximetry 98 98 98 Oxygen Delivery Method Room Air - Lab Data Lab Results 05/08/22 18:00: WBC 7.1, RBC 4.70, Hgb 12.1 L, Hct 37.1 L, MCV 78.8 L, MCH 25.7 L, MCHC 32.6, RDW 18.1 H, Plt Count 267, MPV 10.2, Neut % (Auto) 72.6, Lymph % (Auto) 18.8, Camp % (Auto) 5.5, Eos % (Auto) 2.2, Baso % (Auto) 0.9, Neut # (Auto) 5.2, Lymph # (Auto) 1.3, Camp # (Auto) 0.4, Eos # (Auto) 0.2, Baso # (Auto) 0.1 05/08/22 18:00: Sodium 133 L, Potassium 4.8, Chloride 100, Carbon Dioxide 28, Anion Gap 9.8, BUN 13, Creatinine 0.80, Estimated Creat Clear 63, Estimated GFR 94, Est GFR ( Amer) 114, Glucose 117 H, Calcium 9.4, Total Bilirubin 1.4 H, AST 63 H, ALT 80 H, Alkaline Phosphatase 66, Total Protein 7.4, Albumin 4.2, Globulin 3.2, Albumin/Globulin Ratio 1.3, Amylase 72, Lipase 121 Result diagrams: 05/08/22 18:00 05/08/22 18:00 Orders (Tests/Meds): ED MEDICATIONS Generic Name Dose Route Start Last Admin Trade Name Freq PRN Reason Stop Dose Admin Sodium Chloride 10 ml 05/08/22 17:57 Sodium Chloride 0.9% 10ml Flush Syringe IV 06/07/22 17:56 NEEDED PRN Maintain IV Site Discontinued Medications Generic Name Dose Route Start Last Admin Trade Name Freq PRN Reason Stop Dose Admin Iopamidol 70 ml 05/08/22 19:36 05/08/22 19:38 Iopamidol-370 (76%);100ml Bottle IV 05/08/22 19:37 70 ml ONCE ONE Administration Morphine Sulfate 4 mg 05/08/22 19:21 05/08/22 20:38 Morphine 4mg/Ml Syringe IV 05/08/22 19:22 4 mg ONCE ONE Administration Ondansetron HCl 4 mg 05/08/22 19:21 05/08/22 20:38 Ondansetron 4mg/2ml Vial IV 05/08/22 19:22 4 mg ONCE ONE Administration Sodium Chloride 50 ml 05/08/22 19:36 05/08/22 19:38 0.9 % Sodium Chloride 50 Ml Vial IV 05/08/22 19:37 50 ml ONCE ONE Administration Sodium Chloride 10 ml 05/08/22 19:36 05/08/22 19:38 Sodium Chloride 0.9% 10ml Syr (Rad Only) IV 05/08/22 19:37 10 ml ONCE ONE Administration ORDERS Category Date Time Status Urinalysis and Microscopic Stat Lab 05/08/22 17:58 Ordered Medical Decision Narrative: Patient is a 76-year-old male who presents with right upper quadrant pain. Hemodynamically stable and nontoxic-appearing. Physical exam is most pertinent for pain in the right upper quadrant with is also radiating around his side his history of cancer has been concern for possible intrathoracic pathology as well. Laboratory studies were pertinent for a bilirubin of 1.
--- NOTE | 2022-05-08 19:37 | HMH.ITSTN ---
patient has iodinated contrast media listed as an allergy he did receive contrast in March for an earlier scan and did fine. Er spoke to patient and advised to do the test and override the allergy and the patient agreed and signed for contrast.
--- NOTE | 2022-05-08 20:00 | PC.NURSE ---
CALLED TO XRAY TO START IV. #20 TO RIGHT AC X 1 STICK.
--- NOTE | 2022-05-08 20:30 | PC.NURSE ---
PATIENT ALERT, ORIENTED SKIN WARM AND DRY TO TOUCH, RESP EVEN AND UNLABORED, IV TO LAC REMOVED SMALL INFILTRATION NOTED WHILE IN XRAY, PRESSURE HELD R/T HX OF ANTICOAGULATION NO S/S OF BLEEDING NOTED. PATIENT C/O BEING COLD WARM BLANKETS APPLIED.
--- NOTE | 2022-05-08 21:28 | PC.NURSE ---
Dr. Pantoja s/w pt & his SO regarding ct results and options to admit to hospital. States he will go home and see Dr. Brooks tomorrow (05/09)
[2022-05-08 22:11] VITALS: BP 129/72; PULSE 68; RESP 16; TEMP 36.8; O2SAT 100
== END 2022-05-08 22:15 | disposition home or self-care (01) ==
PROVIDERS: Emergency Provider Student in an Organized Health Care Education/Training Program; PCP Internal Medicine Adolescent Medicine
DX: K80.20 Calculus of gallbladder without cholecystitis without obstruction (principal); Z79.899 Other long term (current) drug therapy; Z91.041 Radiographic dye allergy status; Z88.8 Allergy status to other drugs, medicaments and biological substances; Z86.711 Personal history of pulmonary embolism; Z85.9 Personal history of malignant neoplasm, unspecified; J44.9 Chronic obstructive pulmonary disease, unspecified; I10 Essential (primary) hypertension; E78.5 Hyperlipidemia, unspecified; M19.90 Unspecified osteoarthritis, unspecified site
CPT/HCPCS: 71275; 74177; 80053; 82150; 83690; 85025; 96374; 96375; 99284; J2405; Q9967

== ENCOUNTER → 2022-06-06 10:47 | Outpatient (CLI) | payer MEDICARE, SELFPAY ==
--- NOTE | 2022-06-06 11:03 | CT_ITS ---
FINAL REPORT TECHNIQUE: Pre-and postcontrast images of the abdomen were performed by computed tomography. Extensive 3-D reconstruction images were performed. A CTA was performed. This study was performed with techniques to keep radiation doses as low as reasonably achievable (ALARA). Individualized dose reduction techniques using automated exposure control or adjustment of mA and/or kV according to the patient's size were employed. CLINICAL HISTORY: abd pain/weight loss. FINDINGS: CTA ABDOMEN ABDOMEN: There are chronic changes at the lung bases. Precontrast images demonstrate no evidence of nephrolithiasis. No adrenal masses are identified. The liver, spleen and pancreas are unremarkable. There are multiple gallstones within the gallbladder. CTA: There is an abdominal aortic aneurysm measuring up to 4.0 cm. The SMA, celiac axis, and DHIRAJ are patent. There is no significant stenosis or calcification. There are single renal arteries bilaterally. IMPRESSION: 4.0 cm abdominal aortic aneurysm. Cholelithiasis. Reviewed, Interpreted and Dictated by Roman Hammond MD Transcribed by Sara Yang Authenticated and [facility]
--- NOTE | 2022-06-06 13:45 | HMH.ITSTN ---
Patient began to shake post contrast. Patient has has this reaction before post contrast and post other meds. Patient family member wanted him to be check out by ER. Dr. Segura came up and said vital looked great but did notice his shaking. Verbal ordered 50 mg Benadryl IV inject. I called [facility], Josh Colin, and she came to administered the Benadryl. Patient began to feel better 20 mins after medication and left with his who was driving.
== END ==
PROVIDERS: PCP Internal Medicine Adolescent Medicine; Visit Provider Internal Medicine
DX: K55.9 Vascular disorder of intestine, unspecified (principal); R10.9 Unspecified abdominal pain; R11.2 Nausea with vomiting, unspecified; R63.4 Abnormal weight loss
CPT/HCPCS: 74175; Q9967

== ENCOUNTER → 2022-06-08 10:59 | Outpatient (CLI) | payer MEDICARE, SELFPAY ==
[2022-06-08 11:33] LABS: Blood Urea Nitrogen 8 mg/dl (9-20); Estimated Glomerular Filt Rate 94 ml/min (>60); GFR (African American) 114 ML/MIN (>60)
[2022-06-08 12:45] VITALS: BP 154/94; PULSE 90; RESP 22; O2SAT 99
[2022-06-08 13:00] VITALS: BP 143/98; PULSE 89; RESP 26; O2SAT 95
--- NOTE | 2022-06-08 13:18 | CT_ITS ---
FINAL REPORT TECHNIQUE: Thin section axial images were obtained through the abdomen after intravenous contrast. Reconstruction images were obtained from the axial data. Exam was performed using dose reduction techniques. CLINICAL HISTORY: abdominal pain COMPARISON: June 06, 2022 FINDINGS: There are several sub cm right middle lobe pulmonary nodules which are stable. A lingular nodule is stable. The liver is homogeneous. There are no focal lesions. There are gallstones in the gallbladder. The spleen, adrenal glands, and pancreas are unremarkable. There is no hydronephrosis or solid renal mass. Abdominal GI tract demonstrates mild wall thickening of the gastric antrum. Gastritis is not excluded. There is no small bowel obstruction. There is no abdominal lymphadenopathy or ascites. There is a stable 4 cm abdominal aortic aneurysm. The prostate is enlarged. The wall of the urinary bladder is mildly thickened in likely related to chronic outlet obstruction. The pelvic portions of the GI tract, including the appendix, are without acute abnormality. There is no pelvic lymphadenopathy or ascites. No acute osseous abnormalities identified. IMPRESSION: Stable abdominal aortic aneurysm. Possible gastritis. Cholelithiasis.. Reviewed, Interpreted and Dictated by Bia Abraham MD Transcribed by Kala Canseco Authenticated and [facility]
== END ==
PROVIDERS: PCP Internal Medicine Adolescent Medicine; Visit Provider Surgery
DX: R10.9 Unspecified abdominal pain (principal); R06.02 Shortness of breath
CPT/HCPCS: 36415; 74177; 82565; 84520; 94010; 94618; Q9967

== ENCOUNTER 2022-06-16 22:45 | Emergency (ER) | payer MEDICARE, SELFPAY ==
--- NOTE | 2022-06-16 22:39 | ECG_ITS ---
APPROVED REPORT Exam: Resting ECG HR:85 bpm ECG Measurements Heart Rate 85 AXES ID 173 P 92 QRSd 102 QRS 81 QT 362 T 79 QTc 404 Conclusion SINUS RHYTHM WITH SINUS ARRHYTHMIA Low voltages - severe COPD affects tracings Borderline LAD Late R wave progression BORDERLINE ECG UNCONFIRMED REPORT Electronically signed by : Sravan Brooks MD 06/17/2022 16:23:33
[2022-06-16 22:44] VITALS: BP 125/77; PULSE 88; RESP 18; TEMP 37.1; O2SAT 98; BMI 22.6
--- NOTE | 2022-06-16 23:07 | XR_ITS ---
PROCEDURE INFORMATION: Exam: XR Pelvis Exam date and time: 06/17/2022 12:03 AM Age: 76 years old Clinical indication: Injury or trauma; Fall; Blunt trauma (contusions or hematomas); Bilateral; Pelvic region TECHNIQUE: Imaging protocol: Radiologic exam of the pelvis. Views: 1 or 2 view. COMPARISON: CT ABDOMEN PELVIS W CON 06/08/2022 1:27 PM FINDINGS: Bones/joints: Unremarkable. No acute fracture. Soft tissues: Unremarkable. IMPRESSION: No acute findings.
--- NOTE | 2022-06-16 23:07 | CT_ITS ---
PROCEDURE INFORMATION: Exam: CT Cervical Spine Without Contrast Exam date and time: 06/17/2022 12:00 AM Age: 76 years old Clinical indication: Injury or trauma; Fall; Patient HX: Laceration RT forehead TECHNIQUE: Imaging protocol: Computed tomography of the cervical spine without contrast. Radiation optimization: All CT scans at this facility use at least one of these dose optimization techniques: automated exposure control; mA and/or kV adjustment per patient size (includes targeted exams where dose is matched to clinical indication); or iterative reconstruction. COMPARISON: No relevant prior studies available. FINDINGS: Bones/joints: Loss of normal curvature of the spine, alignment of the vertebral bodies is grossly normal. No evidence of acute compression fracture or deformity in the cervical spine. No displaced fracture involving the vertebral bodies or their posterior elements. Facet joints are normally aligned without facetal dislocation or subluxation. No fracture of the dens, lateral C1-C2 articulation, atlantooccipital joints and central atlantodental joint are unremarkable. Chronic degenerative changes in the visualized cervical spine. Lungs: Subpleural spiculated nodule in the LEFT lung apex measuring 1.9 cm. Soft tissues: Pre-and paravertebral soft tissues are grossly normal. Atherosclerotic calcification of the carotid arteries and aortic arch. IMPRESSION: 1. Chronic degenerative changes without an acute cervical spine injury or abnormality. 2. Spiculated malignant appearing LEFT apical lung nodule. Recommend comparison with prior studies and follow-up as indicated.
--- NOTE | 2022-06-16 23:07 | CT_ITS ---
PROCEDURE INFORMATION: Exam: CT Head Without Contrast Exam date and time: 06/16/2022 11:58 PM Age: 76 years old Clinical indication: Injury or trauma; Fall TECHNIQUE: Imaging protocol: Computed tomography of the head without contrast. Radiation optimization: All CT scans at this facility use at least one of these dose optimization techniques: automated exposure control; mA and/or kV adjustment per patient size (includes targeted exams where dose is matched to clinical indication); or iterative reconstruction. COMPARISON: No relevant prior studies available. FINDINGS: Brain: Chronic microvascular ischemic disease without acute intraparenchymal hemorrhage and no obvious acute ischemic stroke. No intra-or extra-axial fluid collection, no supra-or infratentorial mass, no mass effect or midline shift. Cerebral ventricles: Mildly prominent ventricles, sulci and basal cisterns without evidence of hydrocephalus. Paranasal sinuses: No significant mucoperiosteal thickening in the visualized paranasal sinuses. Mastoid air cells: No mastoid effusion. Bones/joints: Visualized skull bones are grossly normal. Soft tissues: NA IMPRESSION: 1. Chronic microvascular disease and generalized atrophy without acute intracranial abnormality. 2. No evidence of acute hemorrhage, mass lesion or obvious acute ischemic infarction. COMMENTS: Suboptimal study due to extensive motion artifact. Recommend short interval followup if persistent/worsening symptoms.
--- NOTE | 2022-06-16 23:07 | CT_ITS ---
PROCEDURE INFORMATION: Exam: CT Abdomen And Pelvis With Contrast Exam date and time: 06/17/2022 12:09 AM Age: 76 years old Clinical indication: Injury or trauma; Fall TECHNIQUE: Imaging protocol: Computed tomography of the abdomen and pelvis with contrast. Radiation optimization: All CT scans at this facility use at least one of these dose optimization techniques: automated exposure control; mA and/or kV adjustment per patient size (includes targeted exams where dose is matched to clinical indication); or iterative reconstruction. Contrast material: ISOVUE; Contrast volume: 75 ml; Contrast route: IV; COMPARISON: CT ABDOMEN PELVIS W CON 06/08/2022 1:27 PM FINDINGS: Lungs: Emphysematous changes of the lungs. No pleural effusion. Liver: Unremarkable. No mass. No abnormal perihepatic fluid. Gallbladder and bile ducts: There are multiple calcified gallstones. Pancreas: Unremarkable. Spleen: Unremarkable. No abnormal perisplenic fluid. Adrenal glands: Unremarkable. Kidneys and ureters: No renal mass or hydronephrosis. Stomach and bowel: Unremarkable. No obstruction. No mucosal thickening. Appendix: The appendix is identified and is normal. Intraperitoneal space: No free air. No significant fluid collection. Retroperitoneal space: No abnormal periaortic fluid. No bulky lymphadenopathy. Vasculature: There is fusiform infrarenal abdominal aortic aneurysm measuring 4 cm, stable. No abnormal periaortic fluid. Lymph nodes: Unremarkable. No enlarged lymph nodes. Urinary bladder: Unremarkable as visualized. Reproductive: The prostate is mildly enlarged. Bones/joints: No acute osseous abnormality. There is chronic bilateral L5 spondylolysis. Soft tissues: Unremarkable. IMPRESSION: 1. No acute findings. 2. Infrarenal abdominal aortic aneurysm measures the 4 cm, stable. 3. Cholelithiasis. 4. Chronic bilateral L5 spondylolysis.
--- NOTE | 2022-06-16 23:07 | CT_ITS ---
PROCEDURE INFORMATION: Exam: CT Chest Without Contrast; Diagnostic Exam date and time: 06/17/2022 12:04 AM Age: 76 years old Clinical indication: Injury or trauma; Fall TECHNIQUE: Imaging protocol: Diagnostic computed tomography of the chest without contrast. Radiation optimization: All CT scans at this facility use at least one of these dose optimization techniques: automated exposure control; mA and/or kV adjustment per patient size (includes targeted exams where dose is matched to clinical indication); or iterative reconstruction. COMPARISON: CT CHEST WO CON 04/21/2022 1:19 PM FINDINGS: Lungs: There are moderate emphysematous changes of the lungs bilaterally. There is a stable 5 mm calcified nodule right lower lobe. There is stable 8 mm focal opacity of the right lung apex suspicious for scarring. There is a stable calcified subpleural nodule of the left lower lobe. No new suspicious parenchymal opacity. Stable subcentimeter nodule right upper lobe. Pleural spaces: No pleural effusion or pneumothorax. Heart: Heart size is normal. No pericardial effusion. Coronary artery calcifications noted. Lymph nodes: Unremarkable. No enlarged lymph nodes. Vasculature: The abdominal aorta is ectatic measuring 3.1 cm with mild wall calcifications. The Bones/joints: Unremarkable. No acute fracture. Soft tissues: No acute osseous abnormality. IMPRESSION: 1. No acute findings. 2. Moderate emphysematous changes of the lungs. 3. Stable subcentimeter nodules bilaterally.
--- NOTE | 2022-06-16 23:07 | XR_ITS ---
PROCEDURE INFORMATION: Exam: XR Right Hand Exam date and time: 06/16/2022 11:52 PM Age: 76 years old Clinical indication: Injury or trauma; Fall; Blunt trauma (contusions or hematomas); Hand; Right TECHNIQUE: Imaging protocol: Radiologic exam of the Right hand. Views: 3 or more views. COMPARISON: CR XR HAND RT MIN 3V 01/07/2020 7:24 AM FINDINGS: Bones/joints: There is no fracture or dislocation. The distal radius and ulna are intact. There is a stable spur of the ulnar styloid. There is moderate narrowing of the triscaphe joint and severe narrowing of the 1st carpometacarpal joint with adjacent subchondral sclerosis and spurs. Osteoarthritis of the interphalangeal joints. Metacarpals and phalanges appear intact. Soft tissues: Unremarkable. Vasculature: Vascular calcifications. IMPRESSION: 1. No acute osseous abnormality. No fracture identified. 2. Osteoarthritis
--- NOTE | 2022-06-16 23:07 | XR_ITS ---
PROCEDURE INFORMATION: Exam: XR Left Hand Exam date and time: 06/16/2022 11:56 PM Age: 76 years old Clinical indication: Injury or trauma; Fall; Blunt trauma (contusions or hematomas); Hand; Left TECHNIQUE: Imaging protocol: Radiologic exam of the Left hand. Views: 3 or more views. COMPARISON: CR XR HAND LT MIN 3V 01/07/2020 7:24 AM FINDINGS: Bones/joints: There is no fracture or dislocation. The distal radius and ulna are intact. The scaphoid is intact. There is moderate narrowing of the 1st carpometacarpal joint with adjacent spur formation. Soft tissues: Unremarkable. IMPRESSION: No acute osseous abnormality. No fracture identified.
--- NOTE | 2022-06-16 23:07 | XR_ITS ---
PROCEDURE INFORMATION: Exam: XR Chest Exam date and time: 06/16/2022 11:58 PM Age: 76 years old Clinical indication: Injury or trauma; Fall; Blunt trauma (contusions or hematomas) TECHNIQUE: Imaging protocol: Radiologic exam of the chest. Views: 4 or more views. COMPARISON: CT CHEST WO CON 04/21/2022 1:19 PM FINDINGS: Lungs: Lungs are mildly hyperinflated. No focal consolidation or mass. Pleural spaces: No pleural effusion or pneumothorax. Heart/Mediastinum: Heart size is normal. Bones/joints: No acute osseous abnormality. Soft tissues: There are metallic clips of the left chest medially. IMPRESSION: 1. Hyperinflation consistent with COPD. 2. No acute findings.
[2022-06-16 23:20] LABS: Chloride 103 mmol/L (98-107); Potassium 3.8 mmoL/L (3.5-5.1); Sodium 136 mmol/L (136-145)
[2022-06-16 23:22] LABS: Alanine Aminotransferase 10 U/L (12-78); Amylase 87 U/L (30-110); Aspartate Amino Transferase 25 U/L (17-59); Blood Urea Nitrogen 10 mg/dl (9-20); Creatinine Clearance Estimated 63 mL/min (50-200); Estimated Glomerular Filt Rate 110 ml/min (>60); GFR (African American) 133 ML/MIN (>60)
[2022-06-16 23:23] LABS: Albumin Level 3.4 g/dl (3.5-5.0); Albumin/Globulin Ratio 1.2 (1.1-1.8); Alkaline Phosphatase 70 U/L (38-126); Anion Gap 12.8 mEq/L (5-15); Bilirubin,Total 0.5 mg/dl (0.2-1.3); Carbon Dioxide 24 mmol/L (22.0-30.0); Globulin 2.8 g/dL (1.3-3.2); Lipase 275 U/L (23-300); Total Protein,Serum 6.2 g/dl (6.3-8.2)
[2022-06-16 23:28] LABS: Glucose 115 mg/dl (74-100)
[2022-06-16 23:29] LABS: C-Reactive Protein 1.9 mg/L (0-4); Calcium 8.9 mg/dl (8.4-10.2)
[2022-06-16 23:31] LABS: Basophils # 0.1 K/mm3 (0-0.2); Basophils % 0.6 % (0.1-2.0); Eosinophils # 0.1 K/mm3 (0.0-0.4); Eosinophils % 0.8 % (0.1-12.0); Hemoglobin 11.4 g/dL (14.1-18.0); Lymphocytes # 1.9 K/mm3 (0.7-4.5); Lymphocytes % 22.9 % (10-50); Mean Corpuscular HGB Conc 32.5 g/dL (31.8-35.4); Mean Corpuscular Hemoglobin 27.4 pg (27.0-31.2); Mean Corpuscular Volume 84.2 fl (80-94); Mean Platelet Volume 9.3 fl (7.4-10.4); Monocytes # 0.5 K/mm3 (0.1-1.0); Monocytes % 6.3 % (1.7-9.3); Neutrophils # 5.7 K/mm3 (1.8-7.8); Neutrophils % 69.4 % (37.0-80.0); Platelet Count 281 K/mm3 (142-424); Red Blood Count 4.16 M/mm3 (4.60-6.20); White Blood Count 8.1 K/mm3 (4.8-10.8)
[2022-06-16 23:37] LABS: Coronavirus 19, PCR Not Detected (NotDetected); Influenza A, PCR Not Detected (NotDetected); Influenza B, PCR Not Detected (NotDetected)
--- NOTE | 2022-06-16 23:40 | HMH.EDFALL ---
Discharge Plan Disposition Patient Disposition: Left Against Medical Advice Prescriptions Prescriptions: No Action multivitamin [Daily Multi-Vitamin] Tablet 1 tab PO DAILY atorvastatin 20 mg tablet 20 mg PO DAILY gabapentin 300 mg capsule 300 mg PO TID megestrol 40 mg tablet 40 mg PO BID cyanocobalamin (vitamin B-12) 1,000 mcg capsule 1,000 mcg PO DAILY omeprazole magnesium 20 mg tablet,delayed release (DR/EC) 40 mg PO DAILY [id number] 10.7 GM HFA aerosol inhaler 2 puff IH BID ipratropium-albuterol 3 ML solution for nebulization 3 ml IH QIDP PRN (Reason: shortness of breath or wheezing) albuterol sulfate 8.5 GM HFA aerosol inhaler 2 puff IH Q6HP PRN (Reason: shortness of breath or wheezing) apixaban 5 MG tablet 5 mg PO BID nystatin 100,000 unit/gram ointment 1 applic TP QID bisoprolol fumarate 5 mg tablet 5 mg PO DAILY Referrals Follow up/Referrals: Sravan Brooks MD [Primary Care Provider] - See instructions Activity Restrictions/Add. Instructions Additional Instructions/Restrictions: hold bisoprol and increase fluids and call pcp and card for follow up Clinical Impressions Clinical Impression: Abdominal aortic aneurysm (AAA), Syncope due to orthostatic hypotension Instructions Patient Instructions: DI for Orthostatic Hypotension Discharge ED Provider: Noel Kirk HPI General Chief Complaint: Fall Stated Complaint: fall/laceration Time Seen by Provider: 06/16/22 23:40 Mode of Arrival: EMS Source of Information: Patient, Spouse, EMS and Medical Record Limitations: No Limitations Description of Symptoms (Recalled from ER Triage Doc. by RN): pt fell from a standing position. he reports to have gotten dizzy and fell when he did he was holding a glass cup and it fell broke and he landed on it. the pt arrived on a back board but refused a c-collar pt does have a laceration on his right forhead bleeding controlled at this time pt also has glass shards in his left hand and on his skin History of Present Illness HPI Narrative: acute syncopal episode after standing pt with head injury after fall but no loc complaint: fall Onset (ago): hour(s) Fall from: standing Fall witnessed: yes, by family Place fall occurred: home Loss of consciousness: none Prolonged down time: no Symptoms prior to fall: lightheadedness Location of injury: head and other (hands ) Location of injury - extremities: Bilateral: hand Severity: moderate Associated symptoms (after fall): weakness Related Data Home Medications Medication Instructions Recorded Confirmed multivitamin (Daily Multi-Vitamin 1 tab PO DAILY Supplement 01/20/21 06/17/22 tablet) atorvastatin 20 mg tablet 20 mg PO DAILY Cholesterol 01/25/21 06/17/22 gabapentin 300 mg capsule 300 mg PO TID NEUROPATHY 02/16/22 06/17/22 budesonide 160 mcg-glycopyr 9 2 puff inhalation BID COPD 03/02/22 06/17/22 mcg-formot 4.8 mcg/actuation HFA inhaler albuterol sulfate 90 mcg/actuation 2 puff inhalation Q6HP PRN 03/11/22 06/17/22 aerosol inhaler shortness of breath or wheezing ipratropium 0.5 mg-albuterol 3 mg 3 ml inhalation QIDP PRN shortness 03/11/22 06/17/22 (2.5 mg base)/3 mL nebulization of breath or wheezing soln apixaban 5 mg tablet 5 mg PO BID Blood thinner 03/27/22 06/17/22 omeprazole magnesium 20 mg 40 mg PO DAILY GERD 03/30/22 06/17/22 tablet,delayed release cyanocobalamin (vitamin B-12) 1,000 mcg PO DAILY Supplement 06/05/22 06/17/22 1,000 mcg capsule megestrol 40 mg tablet 40 mg PO BID . 06/05/22 06/17/22 bisoprolol fumarate 5 mg tablet 5 mg PO DAILY High blood pressure 06/17/22 06/17/22 nystatin 100,000 unit/gram topical 1 applic topical QID . 06/17/22 06/17/22 ointment Allergies Allergy/AdvReac Type Severity Reaction Status Date / Time Iodinated Contrast Media Allergy Intermediate Hives Verified 06/13/22 12:03 [Iodinated Contrast Me
[2022-06-16 23:51] LABS: Troponin I < 0.01 ng/ml (0.00-0.034)
[2022-06-17 00:04] VITALS: BP 129/77; BP 138/77; BP 87/48
[2022-06-17 00:18] LABS: Erythrocyte Sedimentation Rate 19 mm/hr (0-20)
[2022-06-17 00:30] VITALS: BP 120/70; PULSE 70; O2SAT 100
[2022-06-17 00:53] LABS: Microscopic, Urine URINE MICROSCOPIC (MICROSCOPIC)
[2022-06-17 00:54] LABS: Appearance,Urine CLEAR (Clear); Bilirubin,Urine Negative (Negative); Blood, Urine Negative (Negative); Color,Urine YELLOW (Yellow); Glucose,Urine (UA) Negative (Negative); Ketones,Urine Negative (Negative); Leukocyte Esterase,Urine Negative (Negative); Nitrate,Urine Negative (Negative); PH,Urine 6.5 (5.0-8.5); Protein,Urine TRACE (Negative); Urobilinogen,Urine 0.2 EU/dl (0.2)
[2022-06-17 00:56] LABS: Amorphous Sediment,Urine Trace /lpf; Calcium Oxalate Crystals,Urine 1+ /lpf; Squamous Epithelial Cell,Urine Occasional #/hpf (0-5)
[2022-06-17 01:00] VITALS: BP 130/69; PULSE 68; O2SAT 98
[2022-06-17 01:30] VITALS: BP 132/78; PULSE 68; O2SAT 99
[2022-06-17 02:42] LABS: Troponin I < 0.01 ng/ml (0.00-0.034)
[2022-06-17 02:43] VITALS: BP 132/78; PULSE 68; RESP 18; TEMP 37.1; O2SAT 98
== END 2022-06-17 02:46 | disposition left against medical advice (07) ==
PROVIDERS: Emergency Provider Emergency Medicine; PCP Internal Medicine Adolescent Medicine
DX: S01.81XA Laceration without foreign body of other part of head, initial encounter (principal); S61.412A Laceration without foreign body of left hand, initial encounter; R55 Syncope and collapse; R94.31 Abnormal electrocardiogram [ECG] [EKG]; R10.11 Right upper quadrant pain; R06.02 Shortness of breath; Z20.822 Contact with and (suspected) exposure to COVID-19; I71.4 Abdominal aortic aneurysm, without rupture; I95.9 Hypotension, unspecified; I27.20 Pulmonary hypertension, unspecified; I20.9 Angina pectoris, unspecified; I42.9 Cardiomyopathy, unspecified; R59.9 Enlarged lymph nodes, unspecified; R91.1 Solitary pulmonary nodule; J44.9 Chronic obstructive pulmonary disease, unspecified; F17.210 Nicotine dependence, cigarettes, uncomplicated; Z79.01 Long term (current) use of anticoagulants; Z79.899 Other long term (current) drug therapy; Z88.8 Allergy status to other drugs, medicaments and biological substances; Z91.041 Radiographic dye allergy status; W19.XXXA Unspecified fall, initial encounter; Z86.718 Personal history of other venous thrombosis and embolism; Z86.711 Personal history of pulmonary embolism; Z79.51 Long term (current) use of inhaled steroids; Z85.118 Personal history of other malignant neoplasm of bronchus and lung
CPT/HCPCS: 70450; 71045; 71250; 72125; 72170; 73130; 74177; 80053; 81001; 82150; 83690; 84484; 85025; 85651; 86140; 93005; 96374; 99285; C9803; Q9967; U0003; U0005

== ENCOUNTER 2022-07-01 16:40 | Emergency (ER) | payer MEDICARE, SELFPAY ==
[2022-07-01 16:41] VITALS: BP 145/83; PULSE 74; RESP 20; TEMP 36.6; O2SAT 96; BMI 22.1; BMI 23.5
--- NOTE | 2022-07-01 16:55 | XR_ITS ---
PROCEDURE INFORMATION: Exam: XR Chest Exam date and time: 07/01/22 05:16 PM Age: 76 years old Clinical indication: Cough; Additional info: Weakness, cough, hiccups TECHNIQUE: Imaging protocol: Radiologic exam of the chest. Views: 2 views. COMPARISON: CT CHEST WO CON 06/17/22 12:04 AM FINDINGS: Lungs: Left hilar surgical changes, consistent with lobectomy. Hyperexpanded lungs without infiltrate. Pleural spaces: Unremarkable. No pleural effusion. No pneumothorax. Heart/Mediastinum: Unremarkable. No cardiomegaly. Bones/joints: Unremarkable. IMPRESSION: 1. Left hilar surgical changes, consistent with lobectomy. 2. Hyperexpanded lungs without infiltrate.
--- NOTE | 2022-07-01 16:55 | ECG_ITS ---
APPROVED REPORT Exam: Resting ECG HR:74 bpm ECG Measurements Heart Rate 74 AXES ME 155 P 21 QRSd 107 QRS -66 QT 374 T 0 QTc 401 Conclusion SINUS RHYTHM WITH OCCASIONAL VENTRICULAR PREMATURE COMPLEXES LOW QRS VOLTAGE IN EXTREMITY LEADS [QRS DEFLECTION < 0.5 mV IN LIMB LEADS] PATTERN CONSISTENT WITH PULMONARY DISEASE LEFT ANTERIOR FASCICULAR BLOCK [QRS AXIS <= -45, QR IN I, RS IN II] ABNORMAL ECG UNCONFIRMED REPORT Electronically signed by : Sravan Brooks MD 07/02/2022 15:10:36
--- NOTE | 2022-07-01 17:31 | HMH.EDGENADL ---
Discharge Plan Disposition Patient Disposition: Home, Self-Care Condition: Good Prescriptions Prescriptions: New cefdinir 300 mg capsule 300 mg PO BID 7 Days Qty: 14 0RF chlorpromazine 25 mg tablet 25 mg PO BID Qty: 10 0RF cefdinir 300 mg capsule 300 mg PO BID 7 Days Qty: 14 0RF No Action multivitamin [Daily Multi-Vitamin] Tablet 1 tab PO DAILY atorvastatin 20 mg tablet 20 mg PO DAILY gabapentin 300 mg capsule 300 mg PO TID megestrol 40 mg tablet 40 mg PO BID cyanocobalamin (vitamin B-12) 1,000 mcg capsule 1,000 mcg PO DAILY omeprazole magnesium 20 mg tablet,delayed release (DR/EC) 40 mg PO DAILY [id number] 10.7 GM HFA aerosol inhaler 2 puff IH BID ipratropium-albuterol 3 ML solution for nebulization 3 ml IH QIDP PRN (Reason: shortness of breath or wheezing) albuterol sulfate 8.5 GM HFA aerosol inhaler 2 puff IH Q6HP PRN (Reason: shortness of breath or wheezing) apixaban 5 MG tablet 5 mg PO BID nystatin 100,000 unit/gram ointment 1 applic TP QID bisoprolol fumarate 5 mg tablet 5 mg PO DAILY Referrals Follow up/Referrals: Provider,Referral, MD [Referring] - See instructions Clinical Impressions Clinical Impression: Acute exacerbation of chronic obstructive pulmonary disease, Chronic hiccups Discharge ED Provider: aCrlos Hoff General Adult HPI General Stated complaint: Hiccups Time Seen by Provider: 07/01/22 16:50 Mode of Arrival: Ambulatory Source of Information: Patient Limitations: No Limitations History of Present Illness HPI narrative: This is a 76-year-old male with history of adrenal insufficiency and chronically low cortisol levels on hydrocortisone, COPD, lung malignancy status post left lobe resection, DVT currently on Eliquis, who presents with hiccups intractable. Patient states they were resting in bed 3 days prior to arrival when he had acute onset hiccups. Hiccups are not associated with fevers, chills, nausea, vomiting, abdominal pain, back pain, but have kept him from sleeping and doing much of anything. He hiccups every 5 to 10 seconds and has been going on the past 72 to 96 hours. Patient states that he is also had increased production of sputum and green sputum from his baseline dry cough. Nothing makes it better, nothing makes the hiccups worse. Related Data Home Medications Medication Instructions Recorded Confirmed multivitamin (Daily Multi-Vitamin 1 tab PO DAILY Supplement 01/20/21 06/17/22 tablet) atorvastatin 20 mg tablet 20 mg PO DAILY Cholesterol 01/25/21 06/17/22 gabapentin 300 mg capsule 300 mg PO TID NEUROPATHY 02/16/22 06/17/22 budesonide 160 mcg-glycopyr 9 2 puff inhalation BID COPD 03/02/22 06/17/22 mcg-formot 4.8 mcg/actuation HFA inhaler albuterol sulfate 90 mcg/actuation 2 puff inhalation Q6HP PRN 03/11/22 06/17/22 aerosol inhaler shortness of breath or wheezing ipratropium 0.5 mg-albuterol 3 mg 3 ml inhalation QIDP PRN shortness 03/11/22 06/17/22 (2.5 mg base)/3 mL nebulization of breath or wheezing soln apixaban 5 mg tablet 5 mg PO BID Blood thinner 03/27/22 06/17/22 omeprazole magnesium 20 mg 40 mg PO DAILY GERD 03/30/22 06/17/22 tablet,delayed release cyanocobalamin (vitamin B-12) 1,000 mcg PO DAILY Supplement 06/05/22 06/17/22 1,000 mcg capsule megestrol 40 mg tablet 40 mg PO BID . 06/05/22 06/17/22 bisoprolol fumarate 5 mg tablet 5 mg PO DAILY High blood pressure 06/17/22 06/17/22 nystatin 100,000 unit/gram topical 1 applic topical QID . 06/17/22 06/17/22 ointment Previous Rx's Medication Instructions Recorded cefdinir 300 mg capsule 300 mg PO BID 7 days #14 caps 07/01/22 cefdinir 300 mg capsule 300 mg PO BID 7 days #14 caps 07/01/22 chlorpromazine 25 mg tablet 25 mg PO BID hiccups #10 tabs 07/01/22 Allergies Allergy/AdvReac Type Severity Reaction Status Date / Time Iodinated Contrast Media Allergy Interm
[2022-07-01 17:39] LABS: Alanine Aminotransferase 13 U/L (12-78); Albumin Level 3.6 g/dl (3.5-5.0); Albumin/Globulin Ratio 1.3 (1.1-1.8); Alkaline Phosphatase 75 U/L (38-126); Anion Gap 12.7 mEq/L (5-15); Aspartate Amino Transferase 21 U/L (17-59); Bilirubin,Total 0.5 mg/dl (0.2-1.3); Blood Urea Nitrogen 11 mg/dl (9-20); Calcium 8.4 mg/dl (8.4-10.2); Carbon Dioxide 28 mmol/L (22.0-30.0); Chloride 99 mmol/L (98-107); Creatinine Clearance Estimated 61 mL/min (50-200); Estimated Glomerular Filt Rate 110 ml/min (>60); GFR (African American) 133 ML/MIN (>60); Globulin 2.7 g/dL (1.3-3.2); Glucose 105 mg/dl (74-100); Potassium 3.7 mmoL/L (3.5-5.1); Sodium 136 mmol/L (136-145); Total Protein,Serum 6.3 g/dl (6.3-8.2)
[2022-07-01 17:51] LABS: Troponin I < 0.01 ng/ml (0.00-0.034)
[2022-07-01 18:01] LABS: Basophils # 0.1 K/mm3 (0-0.2); Basophils % 1.3 % (0.1-2.0); Eosinophils # 0.1 K/mm3 (0.0-0.4); Hematocrit 38.6 % (42.0-52.0); Hemoglobin 12.8 g/dL (14.1-18.0); Lymphocytes # 1.8 K/mm3 (0.7-4.5); Lymphocytes % 24.8 % (10-50); Mean Corpuscular HGB Conc 33.1 g/dL (31.8-35.4); Mean Corpuscular Hemoglobin 27.8 pg (27.0-31.2); Mean Corpuscular Volume 84.2 fl (80-94); Mean Platelet Volume 8.8 fl (7.4-10.4); Monocytes # 0.5 K/mm3 (0.1-1.0); Monocytes % 6.6 % (1.7-9.3); Neutrophils # 4.7 K/mm3 (1.8-7.8); Neutrophils % 66.4 % (37.0-80.0); Platelet Count 290 K/mm3 (142-424); Red Blood Count 4.58 M/mm3 (4.60-6.20); Red Cell Distribution Width 18.5 % (11.5-17.5); White Blood Count 7.1 K/mm3 (4.8-10.8)
--- NOTE | 2022-07-01 18:04 | PC.NURSE ---
pt asking if anything else can be given for hiccups
--- NOTE | 2022-07-01 18:36 | PC.ADMIT ---
[id number] [facility] Admission Note: The patient,Hugo Jara,76 y/o, was given written information regarding hospital policies, unit procedures and contact persons. Patient's smoking status: Current every day smoker.
--- NOTE | 2022-07-01 18:37 | PC.NURSE ---
pt was given warm blankets
[2022-07-01 19:13] VITALS: BP 126/74; PULSE 78; RESP 16; TEMP 36.6; O2SAT 98
== END 2022-07-01 19:15 | disposition home or self-care (01) ==
PROVIDERS: Emergency Provider Emergency Medicine; PCP Internal Medicine Adolescent Medicine
DX: J44.1 Chronic obstructive pulmonary disease with (acute) exacerbation (principal); R94.31 Abnormal electrocardiogram [ECG] [EKG]; R60.9 Edema, unspecified; I10 Essential (primary) hypertension; I20.9 Angina pectoris, unspecified; I42.9 Cardiomyopathy, unspecified; E27.40 Unspecified adrenocortical insufficiency; R59.9 Enlarged lymph nodes, unspecified; R06.6 Hiccough; R91.1 Solitary pulmonary nodule; F17.210 Nicotine dependence, cigarettes, uncomplicated; Z79.51 Long term (current) use of inhaled steroids; Z79.01 Long term (current) use of anticoagulants; Z79.52 Long term (current) use of systemic steroids; Z79.899 Other long term (current) drug therapy; Z91.041 Radiographic dye allergy status; Z85.118 Personal history of other malignant neoplasm of bronchus and lung; Z86.718 Personal history of other venous thrombosis and embolism; Z86.711 Personal history of pulmonary embolism
CPT/HCPCS: 71046; 80053; 84484; 85025; 93005; 99285; J0696

== ENCOUNTER → 2022-08-07 16:59 | Outpatient (CLI) | payer MEDICARE, SELFPAY ==
[2022-08-07 18:00] LABS: Basophils # 0.1 K/mm3 (0-0.2); Basophils % 0.9 % (0.1-2.0); Eosinophils # 0.1 K/mm3 (0.0-0.4); Eosinophils % 1.3 % (0.1-12.0); Hemoglobin 13.2 g/dL (14.1-18.0); Lymphocytes # 1.8 K/mm3 (0.7-4.5); Lymphocytes % 26.9 % (10-50); Mean Corpuscular HGB Conc 32.9 g/dL (31.8-35.4); Mean Corpuscular Hemoglobin 29.2 pg (27.0-31.2); Mean Corpuscular Volume 88.9 fl (80-94); Mean Platelet Volume 10.7 fl (7.4-10.4); Monocytes # 0.4 K/mm3 (0.1-1.0); Monocytes % 5.8 % (1.7-9.3); Neutrophils # 4.3 K/mm3 (1.8-7.8); Neutrophils % 65.1 % (37.0-80.0); Platelet Count 220 K/mm3 (142-424); Red Cell Distribution Width 17.4 % (11.5-17.5); White Blood Count 6.7 K/mm3 (4.8-10.8)
[2022-08-07 19:16] LABS: Anion Gap 16.8 mEq/L (5-15); Blood Urea Nitrogen 12 mg/dl (9-20); Calcium 8.9 mg/dl (8.4-10.2); Carbon Dioxide 24 mmol/L (22.0-30.0); Chloride 102 mmol/L (98-107); Estimated Glomerular Filt Rate 94 ml/min (>60); GFR (African American) 114 ML/MIN (>60); Glucose 106 mg/dl (74-100); Potassium 4.8 mmoL/L (3.5-5.1); Sodium 138 mmol/L (136-145)
== END ==
PROVIDERS: PCP Internal Medicine Adolescent Medicine; Visit Provider Internal Medicine Adolescent Medicine
DX: I10 Essential (primary) hypertension (principal)
CPT/HCPCS: 80048; 85025

== ENCOUNTER → 2022-08-14 14:23 | Outpatient (CLI) | payer MEDICARE, SELFPAY ==
[2022-08-14 16:29] LABS: Chloride 102 mmol/L (98-107)
[2022-08-14 16:30] LABS: Potassium 4.6 mmoL/L (3.5-5.1); Sodium 135 mmol/L (136-145)
[2022-08-14 16:32] LABS: Alanine Aminotransferase 10 U/L (12-78); Albumin Level 3.5 g/dl (3.5-5.0); Albumin/Globulin Ratio 1.6 (1.1-1.8); Alkaline Phosphatase 59 U/L (38-126); Anion Gap 13.6 mEq/L (5-15); Aspartate Amino Transferase 20 U/L (17-59); Bilirubin,Total 0.8 mg/dl (0.2-1.3); Blood Urea Nitrogen 11 mg/dl (9-20); Carbon Dioxide 24 mmol/L (22.0-30.0); Estimated Glomerular Filt Rate 110 ml/min (>60); GFR (African American) 133 ML/MIN (>60); Globulin 2.2 g/dL (1.3-3.2); Total Protein,Serum 5.7 g/dl (6.3-8.2)
[2022-08-14 16:33] LABS: Calcium 9.4 mg/dl (8.4-10.2); Glucose 85 mg/dl (74-100)
[2022-08-14 17:32] LABS: Basophils % 0.6 % (0.1-2.0); Eosinophils # 0.1 K/mm3 (0.0-0.4); Eosinophils % 0.9 % (0.1-12.0); Hematocrit 38.3 % (42.0-52.0); Hemoglobin 12.4 g/dL (14.1-18.0); Lymphocytes # 1.5 K/mm3 (0.7-4.5); Lymphocytes % 23.4 % (10-50); Mean Corpuscular HGB Conc 32.5 g/dL (31.8-35.4); Mean Corpuscular Hemoglobin 29.2 pg (27.0-31.2); Mean Corpuscular Volume 89.7 fl (80-94); Mean Platelet Volume 10.2 fl (7.4-10.4); Monocytes # 0.4 K/mm3 (0.1-1.0); Monocytes % 6.1 % (1.7-9.3); Neutrophils # 4.5 K/mm3 (1.8-7.8); Platelet Count 226 K/mm3 (142-424); Red Blood Count 4.26 M/mm3 (4.60-6.20); Red Cell Distribution Width 17.4 % (11.5-17.5); White Blood Count 6.5 K/mm3 (4.8-10.8)
== END ==
PROVIDERS: PCP Internal Medicine Adolescent Medicine; Visit Provider Internal Medicine Adolescent Medicine
DX: J44.1 Chronic obstructive pulmonary disease with (acute) exacerbation (principal)
CPT/HCPCS: 80053; 85025

== ENCOUNTER → 2022-08-30 13:28 | Outpatient (CLI) | payer MEDICARE, SELFPAY ==
[2022-08-30 13:55] LABS: Microscopic, Urine URINE MICROSCOPIC (MICROSCOPIC)
[2022-08-30 14:09] LABS: Appearance,Urine CLOUDY (Clear); Blood, Urine TRACE-L (Negative); Color,Urine ORANGE (Yellow); Glucose,Urine (UA) TRACE (Negative); Ketones,Urine Negative (Negative); Leukocyte Esterase,Urine 1+ (Negative); Nitrate,Urine POSITIVE (Negative); Protein,Urine 2+ (Negative); Specific Gravity, Urine >= 1.030 (1.005-1.030)
[2022-08-30 14:12] LABS: Bilirubin,Urine 2+ (Negative)
[2022-08-30 14:32] LABS: Bacteria,Urine 4+ /lpf; RBC,Urine Occasional #/hpf (0-3); Squamous Epithelial Cell,Urine Occasional #/hpf (0-5); WBC,Urine 20-50 #/hpf (0-3)
== END ==
PROVIDERS: PCP Family Medicine; Visit Provider Family Medicine
DX: N39.0 Urinary tract infection, site not specified (principal); B96.89 Other specified bacterial agents as the cause of diseases classified elsewhere
CPT/HCPCS: 81001; 87086; 87088; 87186

== ENCOUNTER 2022-09-03 17:51 | Emergency (ER) | payer MEDICARE, SELFPAY ==
[2022-09-03 18:08] VITALS: BP 148/88; PULSE 97; RESP 18; TEMP 36.4; O2SAT 99; BMI 19.8
[2022-09-03 18:41] LABS: Basophils # 0.1 K/mm3 (0-0.2); Basophils % 1.2 % (0.1-2.0); Eosinophils # 0.1 K/mm3 (0.0-0.4); Eosinophils % 1.5 % (0.1-12.0); Hematocrit 45.1 % (42.0-52.0); Hemoglobin 14.3 g/dL (14.1-18.0); Lymphocytes # 1.6 K/mm3 (0.7-4.5); Lymphocytes % 22.4 % (10-50); Mean Corpuscular HGB Conc 31.7 g/dL (31.8-35.4); Mean Corpuscular Hemoglobin 28.9 pg (27.0-31.2); Mean Corpuscular Volume 91.2 fl (80-94); Mean Platelet Volume 10.1 fl (7.4-10.4); Monocytes # 0.3 K/mm3 (0.1-1.0); Monocytes % 4.7 % (1.7-9.3); Neutrophils % 70.3 % (37.0-80.0); Platelet Count 261 K/mm3 (142-424); Red Blood Count 4.94 M/mm3 (4.60-6.20); Red Cell Distribution Width 16.8 % (11.5-17.5); White Blood Count 7.2 K/mm3 (4.8-10.8)
[2022-09-03 18:44] LABS: Chloride 105 mmol/L (98-107); Potassium 4.7 mmoL/L (3.5-5.1); Sodium 142 mmol/L (136-145)
[2022-09-03 18:46] LABS: Alanine Aminotransferase 17 U/L (12-78); Aspartate Amino Transferase 23 U/L (17-59); Bilirubin,Total 1.1 mg/dl (0.2-1.3); Blood Urea Nitrogen 24 mg/dl (9-20); Creatinine Clearance Estimated 49 mL/min (50-200); Estimated Glomerular Filt Rate 65 ml/min (>60); GFR (African American) 79 ML/MIN (>60)
[2022-09-03 18:47] LABS: Albumin Level 4.4 g/dl (3.5-5.0); Albumin/Globulin Ratio 1.6 (1.1-1.8); Alkaline Phosphatase 67 U/L (38-126); Anion Gap 17.7 mEq/L (5-15); Calcium 10.2 mg/dl (8.4-10.2); Carbon Dioxide 24 mmol/L (22.0-30.0); Globulin 2.8 g/dL (1.3-3.2); Glucose 101 mg/dl (74-100); Total Protein,Serum 7.2 g/dl (6.3-8.2)
--- NOTE | 2022-09-03 20:22 | PC.NURSE ---
Dr. Kirk at
--- NOTE | 2022-09-03 20:26 | HMH.EDWEAK ---
Discharge Plan Disposition Patient Disposition: Home, Self-Care Chief Complaint: Weakness Prescriptions Prescriptions: No Action gabapentin 300 mg capsule 300 mg PO TID cyanocobalamin (vitamin B-12) 1,000 mcg capsule 1,000 mcg PO DAILY ondansetron HCl 4 mg tablet 4 mg PO TID PRN potassium chloride 10 mEq capsule, extended release 10 meq PO DAILY midodrine 10 mg tablet 10 mg PO TID Breztri Aerosphere 160-9-4.8 mcg/actuation HFA aerosol inhaler 2 inh inhalation BID ivermectin 3 mg tablet 12 mg PO DAILY Qty: 30 2RF omeprazole 40 mg capsule,delayed release(DR/EC) 40 mg PO BID 30 Days Qty: 60 2RF sulfamethoxazole-trimethoprim [Bactrim DS] 800-160 mg tablet 1 tab PO BID 10 Days Qty: 20 0RF ipratropium-albuterol 3 ML solution for nebulization 3 ml IH QIDP PRN (Reason: shortness of breath or wheezing) albuterol sulfate 8.5 GM HFA aerosol inhaler 2 puff IH Q6HP PRN (Reason: shortness of breath or wheezing) apixaban 5 MG tablet 5 mg PO BID bisoprolol fumarate 5 mg tablet 5 mg PO DAILY Referrals Follow up/Referrals: Danish Canseco MD [Primary Care Provider] - See instructions Clinical Impressions Clinical Impression: Acute UTI (urinary tract infection) Instructions Patient Instructions: DI for Urinary Tract Infection (UTI) Discharge ED Provider: Noel Kirk HPI General Chief complaint: Weakness Stated complaint: cant urinate hasnt eaten anything Time Seen by Provider: 09/03/22 20:05 Mode of Arrival: Wheelchair Source of Information: Patient, Spouse and Medical Record Limitations: No Limitations Description of Symptoms (Recalled from ER Triage Doc. by RN): PT AND REPORT DECREASED URINARY OUTPUT, PT SEEN BY PCP THIS WEEK FOR UTI RECEIVED ABX BUT HASN'T TAKEN IT BECAUSE PT HASN'T EATEN MORE THAN 4-5 BITES IN 4-5 DAYS. UNABLE TO GIVE UA AT THIS TIME History of Present Illness HPI Narrative: pt with reported urinary sx and dec po intake - was given abx per pcp - MD Complaint: generalized weakness Onset (ago): day(s) Duration: intermittent Location: generalized Severity: moderate Associated symptoms: denies other symptoms Related Data Home Medications Medication Instructions Recorded Confirmed gabapentin 300 mg capsule 300 mg PO TID NEUROPATHY 02/16/22 08/24/22 albuterol sulfate 90 mcg/actuation 2 puff inhalation Q6HP PRN 03/11/22 08/24/22 aerosol inhaler shortness of breath or wheezing ipratropium 0.5 mg-albuterol 3 mg 3 ml inhalation QIDP PRN shortness 03/11/22 08/24/22 (2.5 mg base)/3 mL nebulization of breath or wheezing soln apixaban 5 mg tablet 5 mg PO BID Blood thinner 03/27/22 08/24/22 cyanocobalamin (vitamin B-12) 1,000 mcg PO DAILY Supplement 06/05/22 08/24/22 1,000 mcg capsule bisoprolol fumarate 5 mg tablet 5 mg PO DAILY High blood pressure 06/17/22 08/24/22 budesonide 160 mcg-glycopyr 9 2 inh inhalation BID 08/24/22 08/24/22 mcg-formot 4.8 mcg/actuation HFA inhaler (Breztri Aerosphere) midodrine 10 mg tablet 10 mg PO TID 08/24/22 08/24/22 ondansetron HCl 4 mg tablet 4 mg PO TID PRN 08/24/22 08/24/22 potassium chloride 10 mEq 10 meq PO DAILY 08/24/22 08/24/22 capsule,extended release Previous Rx's Medication Instructions Recorded ivermectin 3 mg tablet 12 mg PO DAILY #30 tabs 08/24/22 omeprazole 40 mg capsule,delayed 40 mg PO BID 30 days #60 caps 08/28/22 release sulfamethoxazole 800 1 tab PO BID 10 days #20 tabs 09/01/22 mg-trimethoprim 160 mg tablet (Bactrim DS) Allergies Allergy/AdvReac Type Severity Reaction Status Date / Time Iodinated Contrast Media Allergy Intermediate Hives Verified 08/24/22 15:08 [Iodinated Contrast Media - Oral and] amlodipine Allergy SOA Verified 08/24/22 15:08 prednisone AdvReac Intermediate Unknown Verified 08/24/22 15:08 allergy reaction [facility] Medical History Abnormal echocardiogram Abnormal
--- NOTE | 2022-09-03 20:28 | CT_ITS ---
PROCEDURE INFORMATION: Exam: CT Abdomen And Pelvis Without Contrast Exam date and time: 09/03/2022 8:46 PM Age: 77 years old Clinical indication: Abdominal pain; Generalized; Additional info: Abd pain TECHNIQUE: Imaging protocol: Computed tomography of the abdomen and pelvis without contrast. Radiation optimization: All CT scans at this facility use at least one of these dose optimization techniques: automated exposure control; mA and/or kV adjustment per patient size (includes targeted exams where dose is matched to clinical indication); or iterative reconstruction. COMPARISON: CT ABDOMEN PELVIS W CON 06/17/2022 12:09 AM FINDINGS: Lungs: Bronchial wall thickening suggesting changes of chronic bronchitis. 4.5 mm noncalcified pulmonary nodule in the right middle lobe on series 3, image 1. 3 mm juxtapleural nodule in the anterior right middle lobe on image 7. These are unchanged from chest CT angiogram 02/10/2020 and do not require further assessment. Heart: Heart size normal. Moderate coronary artery calcification. Mediastinal space: The visualized distal esophagus is largely contracted without gross abnormality. Liver: Normal contour. No mass lesions. No intrahepatic biliary ductal dilatation. Gallbladder and bile ducts: Small calcified gallstones layering dependently in the gallbladder lumen near the neck with 2 small stones in the cystic duct which are unchanged from 06/17/2022. There is no gallbladder distension or gallbladder wall thickening/stranding to suggest acute cholecystitis however. Nondilated bile ducts. No common duct stones. Pancreas: Mild pancreatic atrophy without acute abnormality. No pancreatic ductal dilatation. Spleen: Normal. No splenomegaly. Adrenal glands: Question mild adrenal hyperplasia without focal mass. Kidneys and ureters: There are 3 small 1-2 mm nonobstructive right renal stones. No ureteral stones. No hydronephrosis or hydroureter. Mild bilateral symmetrical perinephric stranding, nonspecific. This is unchanged and may relate to chronic perirenal scarring. Stomach and bowel: The stomach is largely contracted. The small bowel is nondilated with no gross abnormality. No acute colonic abnormalities. Appendix: The appendix is normal in caliber and demonstrates no evidence of appendicitis. Intraperitoneal space: No free fluid or air. Vasculature: Moderate calcific atherosclerosis in the aorta and iliac vessels. Aneurysmal dilatation of the mid to lower abdominal aortic segment measuring 3.8 cm AP x 4.2 cm transverse, unchanged from recent scans although this does demonstrate slow growth since 02/10/2020, previously 3.4 x 3.9 cm at the same level. No evidence of acute rupture. Lymph nodes: No adenopathy. Urinary bladder: Crow catheter in the urinary bladder grossly well positioned. The bladder is largely contracted without acute abnormality. Reproductive: Moderately enlarged prostate. Bones/joints: No acute osseous abnormalities. Chronic bilateral L5 spondylolysis with slight anterolisthesis L5-S1 unchanged. Soft tissues: Unremarkable. IMPRESSION: 1. No acute process is evident. 2. Gallstones in the gallbladder with 2 small subcentimeter stones in the gallbladder neck/cystic duct which are unchanged from prior scans, with no gallbladder wall thickening or adjacent stranding to suggest cholecystitis. Nondilated bile ducts, no common duct stones. 3. There are few small 1-2 mm nonobstructive right renal stones. No ureteral stones or hydronephrosis. 4. Abdominal aortic aneurysm measures up to 4.2 cm diameter. This is unchanged from recent prior scans but demonstrates slow growth since 2019, previously 3
[2022-09-03 20:47] LABS: Amylase 58 U/L (30-110); Lipase 106 U/L (23-300)
[2022-09-03 20:53] LABS: Lactic Acid 1.7 mmol/L (0.7-2.1)
[2022-09-03 21:30] LABS: Microscopic, Urine URINE MICROSCOPIC (MICROSCOPIC)
[2022-09-03 21:32] LABS: Appearance,Urine CLEAR (Clear); Blood, Urine Negative (Negative); Color,Urine YELLOW (Yellow); Glucose,Urine (UA) Negative (Negative); Ketones,Urine TRACE (Negative); Leukocyte Esterase,Urine Negative (Negative); Nitrate,Urine Negative (Negative); Protein,Urine 1+ (Negative); Specific Gravity, Urine >= 1.030 (1.005-1.030); Urobilinogen,Urine 0.2 EU/dl (0.2)
[2022-09-03 21:34] LABS: Bilirubin,Urine 1+ (Negative)
[2022-09-03 21:36] LABS: Coronavirus 19, PCR Not Detected (NotDetected); Influenza A, PCR Not Detected (NotDetected); Influenza B, PCR Not Detected (NotDetected)
[2022-09-03 21:43] LABS: Bacteria,Urine Trace /lpf; RBC,Urine Occasional #/hpf (0-3)
--- NOTE | 2022-09-03 22:14 | PC.NURSE ---
Dr. Kirk at updating pt/family on results
[2022-09-03 22:22] VITALS: BP 145/80; PULSE 88; RESP 18; TEMP 36.8; O2SAT 98
== END 2022-09-03 22:30 | disposition home or self-care (01) ==
PROVIDERS: Emergency Medicine; Emergency Provider Emergency Medicine; PCP Family Medicine
DX: R42 Dizziness and giddiness (principal); N39.0 Urinary tract infection, site not specified; R06.02 Shortness of breath; R94.31 Abnormal electrocardiogram [ECG] [EKG]; Z20.822 Contact with and (suspected) exposure to COVID-19; I27.20 Pulmonary hypertension, unspecified; I20.9 Angina pectoris, unspecified; R91.1 Solitary pulmonary nodule; J44.9 Chronic obstructive pulmonary disease, unspecified; F17.210 Nicotine dependence, cigarettes, uncomplicated; Z79.01 Long term (current) use of anticoagulants; Z79.51 Long term (current) use of inhaled steroids; Z79.899 Other long term (current) drug therapy; Z88.8 Allergy status to other drugs, medicaments and biological substances; I42.9 Cardiomyopathy, unspecified; Z85.118 Personal history of other malignant neoplasm of bronchus and lung; Z86.718 Personal history of other venous thrombosis and embolism; Z86.711 Personal history of pulmonary embolism
CPT/HCPCS: 51702; 74176; 80053; 81001; 82150; 83605; 83690; 85025; 87040; 96360; 96361; 99285; C9803; U0003; U0005

== ENCOUNTER 2022-09-10 15:45 | Observation (INO) | payer MEDICARE, SELFPAY ==
[2022-09-10] VITALS (9 sets, daily range): BP systolic 113–137; BP diastolic 61–84; PULSE 70–82; RESP 18–20; TEMP 36.4–36.5; O2SAT 96–100; BMI 19.3; BMI 18.1
[2022-09-10 16:39] LABS: Basophils # 0.1 K/mm3 (0-0.2); Basophils % 0.9 % (0.1-2.0); Eosinophils # 0.1 K/mm3 (0.0-0.4); Eosinophils % 1.1 % (0.1-12.0); Lymphocytes # 1.7 K/mm3 (0.7-4.5); Mean Corpuscular HGB Conc 33.3 g/dL (31.8-35.4); Mean Corpuscular Hemoglobin 30.2 pg (27.0-31.2); Mean Corpuscular Volume 90.8 fl (80-94); Mean Platelet Volume 10.3 fl (7.4-10.4); Monocytes # 0.4 K/mm3 (0.1-1.0); Monocytes % 4.5 % (1.7-9.3); Neutrophils # 5.6 K/mm3 (1.8-7.8); Neutrophils % 71.5 % (37.0-80.0); Platelet Count 231 K/mm3 (142-424); Red Blood Count 4.62 M/mm3 (4.60-6.20); Red Cell Distribution Width 16.8 % (11.5-17.5); White Blood Count 7.8 K/mm3 (4.8-10.8)
[2022-09-10 16:40] LABS: Chloride 104 mmol/L (98-107)
[2022-09-10 16:41] LABS: Potassium 4.5 mmoL/L (3.5-5.1); Sodium 138 mmol/L (136-145)
[2022-09-10 16:43] LABS: Alanine Aminotransferase 15 U/L (12-78); Aspartate Amino Transferase 23 U/L (17-59); Blood Urea Nitrogen 21 mg/dl (9-20); Creatinine Clearance Estimated 49 mL/min (50-200); Estimated Glomerular Filt Rate 65 ml/min (>60); GFR (African American) 79 ML/MIN (>60)
[2022-09-10 16:44] LABS: Albumin Level 4.2 g/dl (3.5-5.0); Albumin/Globulin Ratio 1.7 (1.1-1.8); Alkaline Phosphatase 77 U/L (38-126); Anion Gap 12.5 mEq/L (5-15); Calcium 9.7 mg/dl (8.4-10.2); Carbon Dioxide 26 mmol/L (22.0-30.0); Globulin 2.5 g/dL (1.3-3.2); Glucose 86 mg/dl (74-100); Total Protein,Serum 6.7 g/dl (6.3-8.2)
--- NOTE | 2022-09-10 16:52 | XR_ITS ---
PROCEDURE INFORMATION: Exam: XR Chest Exam date and time: 09/10/2022 5:17 PM Age: 77 years old Clinical indication: Shortness of breath; Additional info: V/d, SOB TECHNIQUE: Imaging protocol: Radiologic exam of the chest. Views: 1 view. COMPARISON: CR XR CHEST 2V 07/01/2022 5:16 PM FINDINGS: Lungs: No acute airspace process. Emphysematous changes. Lung hyperinflation. Left upper lobe resection. Pleural spaces: Unremarkable. No pleural effusion. No pneumothorax. Heart/Mediastinum: Unremarkable. No cardiomegaly. Bones/joints: Unremarkable. IMPRESSION: No acute findings.
--- NOTE | 2022-09-10 17:57 | PC.NURSE ---
IVF infusing, pt given pillow and blanket, pt states no other needs at this time
--- NOTE | 2022-09-10 19:37 | PC.NURSE ---
nahun gonzales at BS
--- NOTE | 2022-09-10 19:40 | PC.NURSE ---
household refrigerator mechanic notified of admission
--- NOTE | 2022-09-10 19:42 | PC.NURSE ---
Patient admitted to [address] Clemons with admitting dx of dehydration.
[2022-09-10 19:50] LABS: Coronavirus 19, PCR Not Detected (NotDetected); Influenza A, PCR Not Detected (NotDetected); Influenza B, PCR Not Detected (NotDetected)
--- NOTE | 2022-09-10 20:06 | PC.NURSE ---
Patient stated that he hit elbow on siderail, small skin tear present, patient requested banaide and not steri strips, states skin very thin and tears easily.
--- NOTE | 2022-09-10 20:24 | HMH.EDGENADL ---
Discharge Plan Disposition Patient Disposition: Admitted As Inpatient Condition: Fair Clinical Impressions Clinical Impression: Dehydration Discharge ED Provider: Carlos Segura General Adult HPI General Chief complaint: Nausea/Vomiting/Diarrhea Stated complaint: dehydrated, unable to eat Time Seen by Provider: 09/10/22 16:47 Mode of Arrival: Wheelchair Source of Information: Patient and Spouse Limitations: No Limitations Description of Symptoms (Recalled from ER Triage Doc. by RN): FAmily states that pt has an ongoing issue of not being able to swallow/eat any food or drink with out gagging. states that he has not had anything to eat or drink other than ice chips for several days . states that she thinks he is dehydrated, he has only urinated once today and it was dark and only apprx 200ml.pt has hx of lung ca in 2019 with 40-50% left lung removed. In september of 2021 pt weighed 185lbs, now pt is down to 135lbs. History of Present Illness HPI narrative: Patient presents with a 3 to 4-day history of vomiting, diarrhea and inability to tolerate food and liquids by mouth. He has been dealing with this problem actually since September last year with symptoms of gotten acutely worse in the last 3 to 4 days. This been no fever. He does note some right-sided abdominal pain. Symptoms are described as moderate without exacerbating alleviating factors. does note considerable weight loss of the patient Related Data Home Medications Medication Instructions Recorded Confirmed gabapentin 300 mg capsule 300 mg PO TID NEUROPATHY 02/16/22 08/24/22 albuterol sulfate 90 mcg/actuation 2 puff inhalation Q6HP PRN 03/11/22 08/24/22 aerosol inhaler shortness of breath or wheezing ipratropium 0.5 mg-albuterol 3 mg 3 ml inhalation QIDP PRN shortness 03/11/22 08/24/22 (2.5 mg base)/3 mL nebulization of breath or wheezing soln apixaban 5 mg tablet 5 mg PO BID Blood thinner 03/27/22 08/24/22 cyanocobalamin (vitamin B-12) 1,000 mcg PO DAILY Supplement 06/05/22 08/24/22 1,000 mcg capsule bisoprolol fumarate 5 mg tablet 5 mg PO DAILY High blood pressure 06/17/22 08/24/22 budesonide 160 mcg-glycopyr 9 2 inh inhalation BID 08/24/22 08/24/22 mcg-formot 4.8 mcg/actuation HFA inhaler (Breztri Aerosphere) midodrine 10 mg tablet 10 mg PO TID 08/24/22 08/24/22 ondansetron HCl 4 mg tablet 4 mg PO TID PRN 08/24/22 08/24/22 potassium chloride 10 mEq 10 meq PO DAILY 08/24/22 08/24/22 capsule,extended release Previous Rx's Medication Instructions Recorded ivermectin 3 mg tablet 12 mg PO DAILY #30 tabs 08/24/22 omeprazole 40 mg capsule,delayed 40 mg PO BID 30 days #60 caps 08/28/22 release sulfamethoxazole 800 1 tab PO BID 10 days #20 tabs 09/01/22 mg-trimethoprim 160 mg tablet (Bactrim DS) Allergies Allergy/AdvReac Type Severity Reaction Status Date / Time Iodinated Contrast Media Allergy Intermediate Hives Verified 08/24/22 15:08 [Iodinated Contrast Media - Oral and] amlodipine Allergy SOA Verified 08/24/22 15:08 prednisone AdvReac Intermediate Unknown Verified 08/24/22 15:08 allergy reaction PFSH PFS Medical History Abnormal echocardiogram Abnormal EKG Acute deep vein thrombosis (DVT) of left peroneal vein Adenopathy, hilar Atypical angina Cardiomyopathy Chronic obstructive pulmonary disease, unspecified Dyspnea Dyspnea on exertion Edema H/O malignant neoplasm of lung Hx of cancer of lung Hx of deep venous thrombosis Hx of pulmonary embolus Pulmonary embolism on long-term anticoagulation therapy Pulmonary HTN Solitary pulmonary nodule Tobacco abuse counseling Tobacco use Surgical History H/O colonoscopy History of bronchoscopy History of lobectomy of lung Family History Father Cancer Social History (Updated 09/03/22 @ 18:59 by Paulina Chapman RN) Smoking Status:
--- NOTE | 2022-09-10 20:37 | PC.NURSE ---
Pt provided with drink after receiving approval from hospitalist.
--- NOTE | 2022-09-10 20:51 | EXP.HP ---
History of Present Illness *Admission Date: 09/10/22 *Reason for visit:: Failure to thrive *History of present illness: This is a 77-year-old man with past medical history of DVT and PE on long-term anticoagulation, COPD, status post pneumonectomy for lung cancer, AAA who presents to the emergency department today with complaints of continued difficulty taking in p.o. fluids secondary to no appetite. at bedside reports he has had a slow decline since last September when he contracted COVID. She reports at that time he weighed 185 pounds and is now down to approximately 135 pounds. On questioning the patient patient states that he just is disinterested in food. Patient does report prior history with dysphagia but now has the physical ability to swallow but just does not have an appetite. He does complain of general lysed intermittent abdominal pain but is pain-free at this time. Laboratory evaluation reassuring. X-ray of the chest without abnormalities. Patient did undergo CT imaging last week when he presented with similar complaints. Chronic findings noted on CT to include pulmonary nodules that are unchanged from previous angiogram, AAA stable, nonobstructing renal stones and bronchial wall thickening unchanged suggestive of chronic bronchitis. Patient reports feeling dehydrated and states that he has not urinated today. Laboratory evaluation unremarkable but no urine noted in bladder on bladder scan. Attempted In-N-Out cath with no urine return. Given patient's poor p.o. intake, will admit for IV hydration. PFSH PFSH Medical History Abnormal echocardiogram Abnormal EKG Acute deep vein thrombosis (DVT) of left peroneal vein Adenopathy, hilar Atypical angina Cardiomyopathy Chronic obstructive pulmonary disease, unspecified Dyspnea Dyspnea on exertion Edema H/O malignant neoplasm of lung Hx of cancer of lung Hx of deep venous thrombosis Hx of pulmonary embolus Pulmonary embolism on long-term anticoagulation therapy Pulmonary HTN Solitary pulmonary nodule Tobacco abuse counseling Tobacco use Surgical History H/O colonoscopy History of bronchoscopy History of lobectomy of lung Family History Father Cancer Social History Smoking Status: Former smoker alcohol intake: never substance use type: denies use current occupational status: retired Travel in the last 8 weeks: None household members: spouse housing: house current occupational exposures/hazards: No caffeine: Yes Review of Systems Constitutional Constitutional: Reports anorexia and Reports weight loss Eyes Eyes: Reports system reviewed and no additional complaints, except as documented ENT Ears, Nose, Mouth, and Throat: Reports system reviewed and no additional complaints, except as documented *Cardiovascular Cardiovascular: Reports system reviewed and no additional complaints, except as documented and Denies dyspnea *Respiratory Respiratory: Denies dyspnea and Reports excessive phlegm production *Gastrointestinal Gastrointestinal: Reports early satiety and Reports vomiting (Reports intermittent vomiting but is able to tolerate p.o. now) *Genitourinary Genitourinary: Reports oliguria *Musculoskeletal Musculoskeletal: Reports system reviewed and no additional complaints, except as documented *Neurologic Neurologic: Reports system reviewed and no additional complaints, except as documented Psychiatric Psychiatric: Reports system reviewed and no additional complaints, except as documented Endocrine Endocrine: Reports system reviewed and no additional complaints, except as documented Hematologic/Lymphatic Hematologic/Lymphatic: Reports system reviewed and no additional complaints, except as documented Allergic/Immunologic Allergic/Immunologic: Reports system reviewed and no additional
[2022-09-10 21:16] LABS: Microscopic, Urine URINE MICROSCOPIC (MICROSCOPIC)
[2022-09-10 21:20] LABS: Appearance,Urine CLOUDY (Clear); Blood, Urine 3+ (Negative); Color,Urine AMBER (Yellow); Glucose,Urine (UA) Negative (Negative); Ketones,Urine 1+ (Negative); Leukocyte Esterase,Urine TRACE (Negative); Nitrate,Urine Negative (Negative); Protein,Urine 2+ (Negative); Specific Gravity, Urine >= 1.030 (1.005-1.030)
[2022-09-10 21:40] LABS: Bilirubin,Urine 2+ (Negative)
[2022-09-10 21:43] LABS: Bacteria,Urine Trace /lpf; RBC,Urine TNTC #/hpf (0-3); Squamous Epithelial Cell,Urine Occasional #/hpf (0-5)
[2022-09-11] VITALS: O2SAT 100
[2022-09-11 05:00] VITALS: BMI 18.6
[2022-09-11 07:26] LABS: Anion Gap 17.6 mEq/L (5-15); Blood Urea Nitrogen 20 mg/dl (9-20); Calcium 8.8 mg/dl (8.4-10.2); Carbon Dioxide 23 mmol/L (22.0-30.0); Chloride 102 mmol/L (98-107); Creatinine Clearance Estimated 52 mL/min (50-200); Estimated Glomerular Filt Rate 82 ml/min (>60); GFR (African American) 99 ML/MIN (>60); Glucose 73 mg/dl (74-100); Magnesium 1.8 mg/dl (1.6-2.3); Phosphorous 3.3 mg/dl (2.5-4.5); Potassium 3.6 mmoL/L (3.5-5.1); Sodium 139 mmol/L (136-145)
[2022-09-11 07:33] LABS: Basophils % 0.7 % (0.1-2.0); Eosinophils # 0.1 K/mm3 (0.0-0.4); Eosinophils % 1.5 % (0.1-12.0); Hematocrit 37.4 % (42.0-52.0); Lymphocytes # 1.1 K/mm3 (0.7-4.5); Lymphocytes % 21.4 % (10-50); Mean Corpuscular HGB Conc 32.7 g/dL (31.8-35.4); Mean Corpuscular Hemoglobin 30.3 pg (27.0-31.2); Mean Corpuscular Volume 92.6 fl (80-94); Mean Platelet Volume 10.2 fl (7.4-10.4); Monocytes # 0.3 K/mm3 (0.1-1.0); Monocytes % 5.2 % (1.7-9.3); Neutrophils # 3.8 K/mm3 (1.8-7.8); Neutrophils % 71.2 % (37.0-80.0); Platelet Count 186 K/mm3 (142-424); Red Blood Count 4.04 M/mm3 (4.60-6.20); Red Cell Distribution Width 16.8 % (11.5-17.5); White Blood Count 5.3 K/mm3 (4.8-10.8)
--- NOTE | 2022-09-11 07:33 | PC.NURSE ---
Pt a/o x4. Pt got up to BR with walker around 0500 and became very SOA. 2 L nc applied to pt. Pt states he wears 2 L nc at home as needed. No other c/o voiced to staff. at bedside/ Bed alarm on for pt safety. Call light within reach.
[2022-09-11 07:37] LABS: Hemoglobin 12.2 g/dL (14.1-18.0)
[2022-09-11 08:00] VITALS: BP 127/75; PULSE 86; RESP 19; TEMP 36.5; O2SAT 98
--- NOTE | 2022-09-11 08:56 | HMH.PHAINT1 ---
Pharmacy Intervention Comments: Medication reconciliation completed via chart review, external fill history, and patient interview. Of note, patient receives samples of hydroxychloroquine from Dr. Canseco's office. -Jaed Clemente, [employer] Candidate 2022
--- NOTE | 2022-09-11 13:43 | HMH.SLDYSPHA ---
Speech & Language Evaluation Speech/Language Dysphagia Evaluation Start: 09/11/22 13:27 Freq: ONCE Status: Active Protocol: Document 09/11/22 13:27 SUNNY (Rec: 09/11/22 13:42 [id number] Dysphagia Assess/Goals/Plan Assessment Date of Evaluation: 09/11/22 Evaluation Type Initial Certification Assessment/Problems Pt assessed sitting upright in bed for a clinical bedside swallow evaluation per MD order. Does Patient Qualify for Service No Qualify/Failure Comment Based on the results of the CSE and pt demonstrating no overt s/sxs of aspiration during the assessment, no skilled speech therapy services are warranted at this time. Recommendations PHYSICIAN CERTIFICATION: The specified therapy services are required, authorized, and reviewed every 30 days. Diet Recommendations Mechanical Soft Liquid Type Recommendations Normal/Thin SL Swallow Guidelines Alt bite w/sip thru meal, Standard Aspiration Prec. Dysphagia Swallow Precautions/Strategies Sitting Upright (90 deg), Alternate Liquids/Solids Plan Pt/Guardian verbally ack understanding Yes of dx/prognosis/goals G -code Required No Education Instructions provided CSE results and standard aspiration precautions/diet recommendations discussed with care management, nursing, pt' s , and pt who expressed understanding. Pt/Caregiver able to recall information Able to recall/restate Reinforcement needed No Speech & Language HPI History Present Illness Description of Patient Problem Pt is 77-year-old man with past medical history of DVT and PE on long-term anticoagulation, COPD, and status post pneumonectomy for lung cancer. Per ER report, presented in ER with complaints of continued difficulty taking in p.o. fluids secondary to no appetite. Since September 2021 , pt has gone from 185 lbs to 135 lbs. Pt states that he just is disinterested in food. Patient does report prior
--- NOTE | 2022-09-11 14:12 | EXP.DC.SUM ---
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 fluids secondary to no appetite. at bedside reports he has had a slow decline since last September when he contracted COVID. She reports at that time he weighed 185 pounds and is now down to approximately 135 pounds. On questioning the patient patient states that he just is disinterested in food. Patient does report prior history with dysphagia but now has the physical ability to swallow but just does not have an appetite. He does complain of general lysed intermittent abdominal pain but is pain-free at this time. Laboratory evaluation reassuring. X-ray of the chest without abnormalities. Patient did undergo CT imaging last week when he presented with similar complaints. Chronic findings noted on CT to include pulmonary nodules that are unchanged from previous angiogram, AAA stable, nonobstructing renal stones and bronchial wall thickening unchanged suggestive of chronic bronchitis. Patient reports feeling dehydrated and states that he has not urinated today. Laboratory evaluation unremarkable but no urine noted in bladder on bladder scan. Attempted In-N-Out cath with no urine return. Given patient's poor p.o. intake, will admit for IV hydration. Hospital Course Hospital Course Hospital Course: 77-year-old male admitted for failure to thrive and dehydration. Patient has no other complaints other than he has trouble eating, he denies any nausea, vomiting, diarrhea. Just no appetite. Patient was clinically dehydrated on examination. He received 3 L of normal saline and felt better. Urine output increased. All lab results were reviewed with patient including prior radiographic studies. As discussed there is no observable etiology for his lack of appetite. I suspect there is a psychiatric component to his inability to eat, possibly a food aversion or anorexia of some sorts. Patient may benefit from psychiatric evaluation. Patient was discharged with PCP follow-up of basic metabolic panel and poor p.o. intake. Exam Data for Last 24 hours Vital signs and Labs for Last 24 Hours: Temp Pulse Resp BP Pulse Ox 97.7 F 86 19 127/75 98 09/11/22 08:00 09/11/22 08:00 09/11/22 08:00 09/11/22 08:00 09/11/22 08:00 Laboratory Results - last 24 hr 09/10/22 16:13: WBC 7.8, RBC 4.62, Hgb 14.0 L, Hct 42.0, MCV 90.8, MCH 30.2, MCHC 33.3, RDW 16.8, Plt Count 231, MPV 10.3, Neut % (Auto) 71.5, Lymph % (Auto) 22.0, [place] % (Auto) 4.5, Eos % (Auto) 1.1, Baso % (Auto) 0.9, Neut # (Auto) 5.6, Lymph # (Auto) 1.7, [place] # (Auto) 0.4, Eos # (Auto) 0.1, Baso # (Auto) 0.1 09/10/22 16:13: Sodium 138, Potassium 4.5, Chloride 104, Carbon Dioxide 26, Anion Gap 12.5, BUN 21 H, Creatinine 1.10, Estimated Creat Clear 49, Estimated GFR 65, Est GFR ( Amer) 79, Glucose 86, Calcium 9.7, Total Bilirubin 1.0, AST 23, ALT 15, Alkaline Phosphatase 77, Total Protein 6.7, Albumin 4.2, Globulin 2.5, Albumin/Globulin Ratio 1.7 09/10/22 19:45: SARS-CoV-2 (PCR) Not detected, Influenza A Untype (PCR) Not detected, Influenza Type B (PCR) Not detected 09/10/22 20:55: Urine Color Lexi, Urine Appearance Cloudy, Urine pH 6.0, Ur Specific [place] >= 1.030, Urine Protein 2+, Urine Glucose (UA) Negative, Urine Ketones 1+, Urine Blood 3+, Urine Nitrate Negative, Urine Bilirubin 2+ A, Urine Urobilinogen 1.0, Ur Leukocyte Esterase Trace, Urine RBC Tntc, Urine WBC 3-5, Ur Squamous Epith Cells Occasional, Urine Bacteria Trace 09/11/22 06:20: WBC 5.3 D, RBC 4.04 L, Hgb 12.2 L D, Hct 37.4 L, MCV 92.6, MCH 30.3, MCHC 32.7, RDW 16.8, Plt Count 186, MPV 10.2, Neut % (Auto) 71.2, Lymph % (Auto) 21.4, [place] % (Auto) 5.2, Eos % (Auto) 1.5, Baso % (Auto) 0.7, Neut # (Auto) 3.8, Lymph # (Auto) 1.1,
--- NOTE | 2022-09-11 14:40 | HMH.PHAINT1 ---
Pharmacy Intervention Comments: Discharge counseling completed at bedside with patient and . Discussed continued home medication regimen. Patient and verbalize understanding and have no questions or concerns at this time.
== END 2022-09-11 15:10 | disposition home or self-care (01) ==
LOC: ER 18:54 → 2ND 20:21
PROVIDERS: Nurse Practitioner Acute Care; Admitting Provider Student in an Organized Health Care Education/Training Program; Emergency Provider Emergency Medicine; PCP Family Medicine; Visit Provider Student in an Organized Health Care Education/Training Program
DX: I26.99 Other pulmonary embolism without acute cor pulmonale (principal); E86.0 Dehydration; Z79.01 Long term (current) use of anticoagulants; J44.9 Chronic obstructive pulmonary disease, unspecified; Z79.899 Other long term (current) drug therapy; I42.9 Cardiomyopathy, unspecified; I27.20 Pulmonary hypertension, unspecified; R63.4 Abnormal weight loss; I71.40 Abdominal aortic aneurysm, without rupture, unspecified; Z85.118 Personal history of other malignant neoplasm of bronchus and lung; Z90.2 Acquired absence of lung [part of]; R62.7 Adult failure to thrive; Z68.1 Body mass index [BMI] 19.9 or less, adult; Z20.822 Contact with and (suspected) exposure to COVID-19
CPT/HCPCS: G0378; 36415; 71045; 80048; 80053; 81001; 83036; 83735; 84100; 85025; 92610; 99285; C9803; U0003; U0005

== ENCOUNTER → 2022-09-29 13:02 | Outpatient (CLI) | payer MEDICARE, SELFPAY | PROVIDERS: PCP Family Medicine; Visit Provider Family Medicine | DX: R11.2 Nausea with vomiting, unspecified (principal) | CPT/HCPCS: 86677 ==

== ENCOUNTER 2022-10-04 10:56 | Outpatient (CLI) | payer MEDICARE, SELFPAY ==
[2022-10-04 11:25] VITALS: BP 116/77; PULSE 81; RESP 16; O2SAT 98
[2022-10-04 12:25] VITALS: BP 107/74; PULSE 61; RESP 16
[2022-10-04 13:25] VITALS: BP 104/67; PULSE 69; RESP 16
== END 2022-10-04 13:35 | disposition home or self-care (01) ==
LOC: INF 10:57
PROVIDERS: PCP Family Medicine; Visit Provider Family Medicine
DX: E86.0 Dehydration (principal); J44.9 Chronic obstructive pulmonary disease, unspecified; R62.7 Adult failure to thrive
CPT/HCPCS: 96360; 96361

== ENCOUNTER 2022-10-17 14:10 | Outpatient (CLI) | payer MEDICARE, SELFPAY ==
[2022-10-17 14:35] VITALS: BP 177/100; PULSE 79; RESP 18; O2SAT 98
[2022-10-17 15:35] VITALS: BP 162/83; PULSE 77; RESP 18; O2SAT 98
[2022-10-17 16:45] VITALS: BP 155/73; PULSE 50; RESP 18; O2SAT 97
== END 2022-10-17 16:57 | disposition home or self-care (01) ==
PROVIDERS: PCP Family Medicine; Visit Provider Family Medicine
DX: E86.0 Dehydration (principal); J44.9 Chronic obstructive pulmonary disease, unspecified; R62.7 Adult failure to thrive; Z85.118 Personal history of other malignant neoplasm of bronchus and lung
CPT/HCPCS: 96360; 96361

== ENCOUNTER 2022-11-10 13:29 | Outpatient (CLI) | payer MEDICARE, SELFPAY ==
[2022-11-10 13:45] VITALS: BP 119/71; PULSE 96; RESP 18; O2SAT 97
[2022-11-10 15:56] VITALS: BP 144/81; PULSE 76; RESP 18
== END 2022-11-10 15:56 | disposition home or self-care (01) ==
LOC: INF 13:30
PROVIDERS: PCP Family Medicine; Visit Provider Family Medicine
DX: J44.9 Chronic obstructive pulmonary disease, unspecified (principal); E86.0 Dehydration; Z85.118 Personal history of other malignant neoplasm of bronchus and lung
CPT/HCPCS: 96360; 96361